=== PATIENT | male | born 1970 | race Caucasian/White ===

== ENCOUNTER 2022-01-29 09:16 | Outpatient (REF) | payer BC, SELFPAY ==
[2022-01-29 12:03] LABS: Alanine Aminotransferase 84 U/L (0-40); Albumin Level 4.8 g/dL (3.5-5.0); Alkaline Phosphatase 66 U/L (39-117); Anion Gap 13 (12-20); Aspartate Amino Transferase 36 U/L (5-37); Bilirubin Total 0.6 mg/dL (0.0-1.0); Blood Urea Nitrogen 20 mg/dL (9-16); Calcium 10.1 mg/dL (8.4-10.2); Carbon Dioxide 26 mmol/L (22-29); Chloride 104 mmol/L (96-108); Cholesterol 208 mg/dL; Estimated Glomerular Filt Rate > 60; Glucose Fasting 138 mg/dL (60-99); HDL Cholesterol 54 mg/dL; LDL Cholesterol Calculated 124 mg/dl; Potassium 4.7 mmol/L (3.3-5.1); Sodium 138 mmol/L (135-145); Total Protein 7.3 g/dL (6.5-8.0); Triglycerides 152 mg/dL
[2022-01-29 12:06] LABS: Prostate Specific Antigen 0.81 ng/mL (<0.05-4.0)
[2022-01-29 12:16] LABS: Estimated Average Glucose 169 mg/dL; Hemoglobin A1c % 7.5 %
== END 2022-01-29 09:17 | disposition home or self-care (01) ==
LOC: HO.MANLDS 09:16
PROVIDERS: PCP Internal Medicine; Visit Provider Internal Medicine
DX: R73.9 Hyperglycemia, unspecified (principal); Z12.5 Encounter for screening for malignant neoplasm of prostate
CPT/HCPCS: 36415; 80053; 80061; 83036; 84153

== ENCOUNTER 2022-04-25 08:13 | Outpatient (REF) | payer BC, SELFPAY ==
[2022-04-25 11:39] LABS: Estimated Average Glucose 137 mg/dL; Hemoglobin A1c % 6.4 %
== END 2022-04-25 08:14 | disposition home or self-care (01) ==
LOC: HO.MANLDS 08:13
PROVIDERS: Visit Provider Internal Medicine
DX: R73.9 Hyperglycemia, unspecified (principal)
CPT/HCPCS: 36415; 83036

== ENCOUNTER 2022-08-03 08:28 | Outpatient (REF) | payer BC, SELFPAY ==
[2022-08-03 11:38] LABS: Estimated Average Glucose 134 mg/dL; Hemoglobin A1c % 6.3 %
== END 2022-08-03 08:29 | disposition home or self-care (01) ==
LOC: HO.MANLDS 08:28
PROVIDERS: Visit Provider Internal Medicine
DX: R73.01 Impaired fasting glucose (principal)
CPT/HCPCS: 36415; 83036

== ENCOUNTER 2022-10-29 10:36 | Outpatient (REF) | payer BC, SELFPAY ==
[2022-10-29 14:10] LABS: Estimated Average Glucose 143 mg/dL; Hemoglobin A1c % 6.6 %
== END 2022-10-29 10:37 | disposition home or self-care (01) ==
LOC: HO.MANLDS 10:36
PROVIDERS: Visit Provider Internal Medicine
DX: R73.9 Hyperglycemia, unspecified (principal)
CPT/HCPCS: 36415; 83036

== ENCOUNTER 2023-01-25 07:46 | Outpatient (REF) | payer BC, SELFPAY ==
[2023-01-25 12:13] LABS: Estimated Average Glucose 143 mg/dL; Hemoglobin A1c % 6.6 %
== END 2023-01-25 07:47 | disposition home or self-care (01) ==
LOC: HO.MANLDS 07:46
PROVIDERS: Visit Provider Internal Medicine
DX: R73.9 Hyperglycemia, unspecified (principal)
CPT/HCPCS: 36415; 83036

== ENCOUNTER 2023-11-07 14:00 | Outpatient (RCR) | payer BC, SELFPAY | END 2023-12-24 13:39 | disposition home or self-care (01) | LOC: HO.PTWFD 14:00 | PROVIDERS: PCP Internal Medicine; Visit Provider Orthopaedic Surgery | DX: Z98.890 Other specified postprocedural states (principal) | CPT/HCPCS: 97014; 97110; 97140; 97150; 97163; 97535 ==

== ENCOUNTER 2024-02-11 07:15 | Outpatient (REF) | payer BC, SELFPAY ==
[2024-02-11 11:53] LABS: Estimated Average Glucose 180 mg/dL; Hemoglobin A1c % 7.9 % (<6.0)
[2024-02-11 12:26] LABS: Creatinine Urine 45.56 mg/dL; Microalbum/Creatinine Ratio Ur 10.9 ug/mg cr (<30)
[2024-02-11 12:31] LABS: Alanine Aminotransferase 92 U/L (0-40); Albumin Level 4.7 g/dL (3.5-5.0); Alkaline Phosphatase 86 U/L (39-117); Anion Gap 14 (12-20); Aspartate Amino Transferase 42 U/L (5-37); Bilirubin Total 0.4 mg/dL (0.0-1.0); Blood Urea Nitrogen 22 mg/dL (9-16); Calcium 9.6 mg/dL (8.4-10.2); Carbon Dioxide 27 mmol/L (22-29); Chloride 104 mmol/L (96-108); Cholesterol 190 mg/dL (<200); Estimated Glomerular Filt Rate > 60; Glucose Random 163 mg/dL (60-115); HDL Cholesterol 45 mg/dL (>40); LDL Cholesterol Calculated 103 mg/dL (<100); Potassium 4.5 mmol/L (3.3-5.1); Sodium 140 mmol/L (135-145); Total Protein 7.7 g/dL (6.5-8.0); Triglycerides 214 mg/dL (<150)
== END 2024-02-11 07:16 | disposition home or self-care (01) ==
LOC: HO.WFDLDS 07:15
PROVIDERS: Visit Provider Internal Medicine
DX: Z13.6 Encounter for screening for cardiovascular disorders (principal); R73.01 Impaired fasting glucose
CPT/HCPCS: 36415; 80053; 80061; 82043; 82570; 83036

== ENCOUNTER 2024-04-27 07:52 | Outpatient (REF) | payer BC, SELFPAY ==
[2024-04-27 11:58] LABS: Estimated Average Glucose 140 mg/dL; Hemoglobin A1c % 6.5 % (<6.0)
[2024-04-27 12:12] LABS: Alanine Aminotransferase 33 U/L (0-40); Albumin Level 4.5 g/dL (3.5-5.0); Alkaline Phosphatase 64 U/L (39-117); Anion Gap 10 (12-20); Aspartate Amino Transferase 26 U/L (5-37); Bilirubin Total 0.3 mg/dL (0.0-1.0); Blood Urea Nitrogen 20 mg/dL (9-16); Calcium 9.5 mg/dL (8.4-10.2); Carbon Dioxide 27 mmol/L (22-29); Chloride 107 mmol/L (96-108); Cholesterol 138 mg/dL (<200); Estimated Glomerular Filt Rate > 60; Glucose Random 123 mg/dL (60-115); HDL Cholesterol 57 mg/dL (>40); LDL Cholesterol Calculated 67 mg/dL (<100); Sodium 140 mmol/L (135-145); Total Protein 6.9 g/dL (6.5-8.0); Triglycerides 70 mg/dL (<150)
== END 2024-04-27 07:53 | disposition home or self-care (01) ==
LOC: HO.WFDLDS 07:52
PROVIDERS: Visit Provider Internal Medicine
DX: E78.2 Mixed hyperlipidemia (principal); R73.01 Impaired fasting glucose
CPT/HCPCS: 36415; 80053; 80061; 83036

== ENCOUNTER 2024-08-04 08:08 | Outpatient (REF) | payer BC, SELFPAY ==
[2024-08-04 11:25] LABS: Estimated Average Glucose 134 mg/dL; Hemoglobin A1c % 6.3 % (<6.0)
[2024-08-04 11:42] LABS: Alanine Aminotransferase 22 U/L (0-40); Albumin Level 4.7 g/dL (3.5-5.0); Alkaline Phosphatase 62 U/L (39-117); Anion Gap 13 (12-20); Aspartate Amino Transferase 19 U/L (5-37); Bilirubin Total 0.4 mg/dL (0.0-1.0); Blood Urea Nitrogen 21 mg/dL (9-16); Calcium 9.4 mg/dL (8.4-10.2); Carbon Dioxide 26 mmol/L (22-29); Chloride 105 mmol/L (96-108); Cholesterol 148 mg/dL (<200); Estimated Glomerular Filt Rate > 60; Glucose Random 124 mg/dL (60-115); HDL Cholesterol 62 mg/dL (>40); LDL Cholesterol Calculated 76 mg/dL (<100); Potassium 3.9 mmol/L (3.3-5.1); Sodium 140 mmol/L (135-145); Total Protein 7.2 g/dL (6.5-8.0); Triglycerides 52 mg/dL (<150)
[2024-08-04 12:25] LABS: Creatinine Urine 24.01 mg/dL; Microalbumin Urine < 5.0 mg/L
== END 2024-08-04 08:09 | disposition home or self-care (01) ==
LOC: HO.WFDLDS 08:08
PROVIDERS: Visit Provider Internal Medicine
DX: R73.01 Impaired fasting glucose (principal)
CPT/HCPCS: 36415; 80053; 80061; 82043; 82570; 83036

== ENCOUNTER 2024-11-12 09:44 | Outpatient (REF) | payer BC, SELFPAY ==
--- OUTSIDE RECORDS SUMMARY | 2024-11-12 09:48 | XMS_ITS ---
Author Name [facility] ([place] Organization [facility] Address [address] [place] [id number] Care Team Providers Care General Passenger Agent Name Role Phone RICK WILKINS Primary Care Provider Unavail able Insurance Providers: All historical and current Section Date Range: From patient's date of to the date document was created. This section includes the names of all active insurance providers for the patient. Insurance Provider Type of Coverage Plan Name Start of Policy Coverage End of Policy Coverage Group Number Member ID Insurance Provider's Telephone Number Policy Mosqueda's Name Patient's Relationship to Policy Mosqueda TRACY [facility] FEDERAL PREFERRED PROVIDER ORGANIZAT ION (PPO) BASIC SELF+ ONE Nov 27, 2020 113 [id number] [phone] Anabell SUERO PATIENT BC[place] F[place] PREFERRED PROVIDER ORGANIZAT ION (PPO) BASIC SELF PLUS ONE Nov 27, 2020 113 [id number] Anabell SUERO R PATIENT [employer] FEPRX PLAN PRESCRIPT ION CAREM ARK FEPRX Nov 27, 2020 [id number] [phone] Anabell SUERO R PATIENT [employer]-F EP BCBS PRESCRIPT ION FEP CAREM ARK Nov 27, 2020 [id number] AUCLAIR,C HRISTOPHE R PATIENT Selected Encounter This section includes the information on record at ME for the Encounter. Date/Time Encounter Type Encounter Description Reason Pro vider Source Jun 19, 2024 02:14 PM Outpatient Encounter TELEPHONE PRIMARY CARE IHE Encounter Template Text not used by ME Plan of Treatment: Future Appointments (+ 6 months) and Future Tests (+/- 45 days) The Plan of Treatment section includes future care activities for the patient from all [facility]. This section includes future appointments and future orders which are active, pending or scheduled. Future Appointments This section includes appointments that were scheduled to occur 6 months from the date of the Encounter, up to a maximum of 20 appointments. The data comes from all ME treatment [facility]. Appointment Date/Time Appointment Type Appointme nt Facility Name Jul 02, 2024 03:00 PM AMBULATORY - MEDICINE [facility] [place] [facility] Jul 02, 2024 03:30 PM AMBULATORY - PSYCHIATRY [facility] [place] [facility] Jul 17, 2024 02:30 PM AMBULATORY - MEDICINE [facility] [place] [facility] Jul 21, 2024 08:00 AM AMBULATORY - PSYCHIATRY [facility] [place] [facility] Aug 11, 2024 03:30 PM AMBULATORY - MEDICINE [facility] [place] [facility] Sep 21, 2024 10:00 AM AMBULATORY - MEDICINE [facility] [place] [facility] Sep 21, 2024 10:01 AM AMBULATORY - MEDICINE [facility] [place] [facility] Sep 22, 2024 11:00 AM AMBULATORY - PSYCHIATRY [facility] [place] [facility] Oct 09, 2024 08:30 AM AMBULATORY - PSYCHIATRY [facility] [place] [facility] Oct 26, 2024 10:00 AM AMBULATORY - NONE [facility] [place] [facility] Nov 11, 2024 09:00 AM AMBULATORY - MEDICINE [facility] [place] [facility] Active, Pending, and Scheduled Orders This section includes a listing of several types of active, pending, and scheduled orders, including clinic medications orders, diagnostic test orders, procedure orders and consult orders; where the start date of the order is 45 days before the date of the Encounter or 45 days after the date of theEncounter. The data comes from all ME treatment [facility]. Test Date/Time Test Type Test Details Facility Name Jul 16, 2024 10:57 AM Consult Order COMMUNITY CARE-COLONOSCOPY DIAGNOSTIC Cons Plant Production Worker's Choice [facility] [employer] [facility] Lab Results: +/- 30 days of the encounter This section includes the Chemistry and Hematology Lab Results on record with ME for the patient. Radiology Reports and Pathology Reports are provided separately, in subsequent sections. Lab Results This section contains the Chemistry/Hematology Results that were resulted 30 days before or 30 daysafter the date of the Encounter. Date/Time Source Result Type Result - Unit Interpretation Reference Range Comment Jul 11, 2024 05:30 AM [facility] [employer] [facility] OCCULT BLOOD FIT X1 SCREEN(IN-HOUSE) Specimen Type: FECES No comment entered. Ordering Provider: OCTAVIANO WILKINS Report Released Date/Time: Jul 02, 2024 03:02 PM Reporting Lab: [facility] [address] [facility] [address] Performing Lab: [address] [address] OCCULT BLOOD (FIT)#1 OF 1 POSITIVE HH NEG Social History: Smoking Status (Most current) and Tobacco Use (All prior to encounter date) This section includes the most current, and the historical, smoking and tobacco- related health factors from the ME facility where the Encounter took place. Current Smoking Status This section includes the most current smoking, or tobacco-related health factor, from the ME facility where the Encounter took place. Date/Time Current Smoking Status Comment Ava conde Jun 19, 2024 02:14 PM [facility]CO [facility] Encounter Notes: All associated encounter notes This section contains the clinical notes associated to the Encounter. Date/Time Encounter Note(s) Provider Source Jun 19, 2024 02:42 PM LETTERS: LOCAL TITLE: PATIENT LETTER (B) STANDARD TITLE: LETTERS DATE OF NOTE: JUN 19, 2024@14:42 ENTRY DATE: JUN 19, 2024@14:42:31 AUTHOR: JONATHAN MADDOX COSIGNER: URGENCY: STATUS: COMPLETED [facility] [address] [facility] [address] * [phone] * Date: 06/19/24 Dear [place]: George Thank you for choosing the [facility] (ME) [facility]. The Whole Health Program aims to support you in pursuing what matters most to you, and includes services that support your values and overall wellness. This includes the following offerings: * Yoga * Acupuncture * [place] [facility] for Acute Pain (offered weekly; drop-in or scheduled) * Individual health coaching * Gasoline Attendant * Biofeedback for Hypertension and Anxiety * Guided Imagery Group * Meditation Group * Cancer Support Group * Stress Management Group ( Stress Less ) The following require no referral from a provider, and can be initiated by you at any time: * Yoga * Meditation * [place] [facility] * Cancer Support Group * Individual Health Coaching * Stress Management Group ( Stress Less ) If interested in any of the above offerings, please reach out to the Whole Health Team at ext. [phone]. To schedule consult-required services, or if you would like more information regarding [place] health care benefits, please call toll free at [phone]), visit the [place] website at [email or web address], or contact your local [place] Medical Center. If you have any questions, please do not hesitate to contact the Department of [place]'s Affairs call center. Sincerely. Dr. Aminata Hurley Whole Health and Integrated Orchestrator [facility] Direct JONATHAN MADDOX [facility] [place] [facility] Jun 19, 2024 02:26 PM MEDICATION MGT NOTE: LOCAL TITLE: MEDICATION RECONCILIATION STANDARD TITLE: MEDICATION MGT NOTE DATE OF NOTE: JUN 19, 2024@14:26 ENTRY DATE: JUN 19, 2024@14:27:15 AUTHOR: JONATHAN MADDOX COSIGNER: URGENCY: STATUS: COMPLETED [place]ane was given an appt with: Carrington Wilkins PA-C on 07/02/24@1500 F: Medication reconciliation D: Duane says that he is on the following Medications: 1. Betamethasone dipropionate 0.05 % topical cream APPLY TO AFFECTED AREA TWICE A DAY as needed 2. Naproxen 200mg by mouth as needed- OTC 3. Ibuprofen 200mg by mouth Take 400mg by mouth as needed- OTC Duane says that he has the following Medical Hx: 1. Labrum right shoulder- Pain of right shoulder joint- Injury of tendon of the rotator cuff of shoulder- surgery 2022 2. Kidney stone 3. Mass of lower limb-Rt hip 4. Impaired fasting glycemia 5. Neck pain 6. Hypertriglyceridemia 7. Eczema- elbows, back of hands 8. Obesity 9. Pain of right knee joint 10. Glenoid labrum tear 11. Sleep apnea 12. Hearing Loss Duane says that he has the following community Providers: 1. [facility] [address] [facility] [place], [address], 2. Darrell Roy DO [address] [place] [address], [id number], [place] 3. [place] Date(s): 05/15/24 - 06/14/[address] [id number] Duane says that he has allergies or adverse effects to the following Medications: 1. Duane has No Known Drug allergies /es/ JONATHAN MADDOX MSN Ed., BSN ALTERATION INSPECTOR NURSE Signed: 06/22/2024 09:08 Receipt Acknowledged By: 06/22/2024 09:17 /es/ CESAR LOPEZ, RN REGISTERED NURSE 06/22/2024 10:03 /es/ GEORGE MOSELEY LPN 06/22/2024 09:41 /es/ Rick Wilkins PA-C STAFF PHYSICIAN ATTIC FANS MECHANIC JONATHAN MADDOX [facility] [place] [facility] Jun 19, 2024 02:21 PM LETTERS: LOCAL TITLE: PATIENT LETTER (B) STANDARD TITLE: LETTERS DATE OF NOTE: JUN 19, 2024@14:21 ENTRY DATE: JUN 19, 2024@14:21:39 AUTHOR: JONATHAN MADDOX EXP COSIGNER: URGENCY: STATUS: [place] [address] [phone] * [phone] * Date: 06/22/24 Dear : George Thank you for choosing the [facility] ([place]) [facility] [place]. Please be a few minutes early to this appt- about 15 mins. We would like to update your demographic information. To schedule or if you would like more information regarding [place] health care benefits, please call toll free at [phone]), visit the [place] website at [email or web address], or contact your local [place] Medical Center. Welcome to patient aligned care team (Pact Team 3) with (Carrington Wilkins PA-C). Prior to meeting you at your new patient appointment we are requesting some of your past medical history so that we may provide you with the exceptional care you deserve. Please note that it is very helpful to have these documents prior to your appointment date as the more information we have the better we will be able to meet your needs: * Last History & Physical * Immunization records * Medication list * Diagnosis list * Most recent labs * Diagnostic screens (Colonoscopy, Abdominal Aortic Aneurysm screen, Mammograms, PAPS, etc.) We have scheduled the following appt with you to see your new PCP: Your appt is scheduled for (07/02/24@1500)- This appt will be about an hour long appt which will give you and your Provider a chance to get to know each other. We have noticed that you are due to receive the following Immunizations: 1. Zoster vaccine- 2 shot series 2. Covid 19 vaccine 3. Influenza Vaccine after 08/09 You may either bring your records with you to your scheduled appointment, or drop them off ahead of your appointment or you may have them faxed to [phone] ATTN: [id number] If you have any questions, please do not hesitate to contact the Department of 's Affairs call center at Ext [phone]. Just so that you know if you're feeling sick we have sick call hours at the [facility], and the [facility]- Sat thru Saturday 08-1530- first come first serve- walk-in basis. [facility] also has sick call hours Sat- Sat- 1100-12N, and 3P-4P- first come first serve basis- no appt needed. You can utilize our sick call system once you have seen the PCP for the first appt. Audiology Phone number- [phone] Ext [phone] Optometry Phone Number- [phone] Ext [phone] Mental Health Clinic- [phone] Ext- [phone] Eligibility/Enrollment- [phone] [phone] Veterans Rep [phone] Ext [phone] JAMES Camacho [phone] [facility] Transportation [phone] Ext [phone], or,[phone] [place] Act [phone] ( Call within 72hrs of being seen in an acute care setting Sincerely. [facility] [address] [place] [address] Phone: Ext [phone] Upcoming Appointments: 07/02/24@1500- CWM/NO/PACT-3- Dougwaleyda Maddox MSN Ed., BSN, RN [facility] [address] [facility] [address] [place] [address] [place] [address] - Ext [phone] [facility] [address] [place] [address] # [phone] [place] [address] JONATHAN MADDOX [facility] [place] [facility] Jun 19, 2024 02:14 PM PREVENTIVE MEDICINE NURSING NOTE: LOCAL TITLE: CLINICAL REMINDERS/NURSING STANDARD TITLE: PREVENTIVE MEDICINE NURSING NOTE DATE OF NOTE: JUN 19, 2024@14:14 ENTRY DATE: JUN 19, 2024@14:14:59 AUTHOR: JONATHAN MADDOX EXP COSIGNER: URGENCY: STATUS: COMPLETED Advance Directive Screen AD: Patient does not have an Advance Directive completed and is requesting more information. The patient received education about Advance Directives and written notification of his/her rights. Vet was sent an advanced directive and was asked to fill out and bring in for PCP appt Tdap Immunization: Td/Tdap given previously - written records available The patient has previously received the Tetanus, Diphtheria, Pertussis vaccine (Tdap). Documented: TDAP Historical Date Administered: Sep 29, 2021 Series: (None selected) Representative Government Relations: [employer] Lot: [id number] Exp Date: Unknown Outside Location: Outside Healthcare Provider Information Source: FROM OTHER REGISTRY Comment: tetanus, diphtheria, acellular pertussis Documented: YELLOW FEVER LIVE Historical Date Administered: Jul 26, 1990 Outside Location: Outside Healthcare Provider Information Source: FROM OTHER REGISTRY Comment: yellow fever vaccine Documented: YELLOW FEVER LIVE Historical Date Administered: Aug 03, 2000 Outside Location: Outside Healthcare Provider Information Source: FROM OTHER REGISTRY Comment: yellow fever vaccine Documented: TYPHOID, PARENTERAL, AKD ([place] ) Historical Date Administered: Jun 25, 1996 Outside Location: Outside Healthcare Provider Information Source: FROM OTHER REGISTRY Comment: typhoid, parenteral, AKD Documented: TYPHOID, VICPS Historical Date Administered: March 29, 2018 Representative Government Relations: [employer] PA[employer] Lot: [id number] Exp Date: Unknown Outside Location: Outside Healthcare Provider Information Source: FROM OTHER REGISTRY Comment: typhoid Vi capsular polysaccharide vaccine Documented: COVID-19 ([facility]), MRNA, LNP-S, PF, 30 MCG/0.3 ML DOSE Historical Date Administered: Nov 23, 2020 Series: Series 1 Representative Government Relations: [facility] Lot: [id number] Exp Date: Unknown Outside Location: Outside Healthcare Provider Information Source: FROM OTHER REGISTRY Comment: SARS-COV-2 (COVID-19) vaccine, mRNA, spike protein, LNP, preservative free, 30 mcg/0.3mL dose Documented: COVID-19 ([employer]), MRNA, LNP-S, PF, 30 MCG/0.3 ML DOSE Historical Date Administered: Dec 14, 2020 Series: Series 2 Representative Government Relations: [facility] Lot: [id number] Exp Date: Unknown Outside Location: Outside Healthcare Provider Information Source: FROM OTHER REGISTRY Comment: SARS-COV-2 (COVID-19) vaccine, mRNA, spike protein, LNP, preservative free, 30 mcg/0.3mL dose Documented: COVID-19 ([employer]), MRNA, LNP-S, PF, 100 MCG/0.5ML DOSE OR 50 MCG/0.25ML DOSE Historical Date Administered: Feb 24, 2021 Representative Government Relations: [employer] Lot: [id number] Exp Date: Unknown Outside Location: Outside Healthcare Provider Information Source: FROM OTHER REGISTRY Comment: SARS-COV-2 (COVID-19) vaccine, mRNA, spike protein, LNP, preservative free, 100 mcg or 50 mcg dose Documented: POLIO, UNSPECIFIED FORMULATION Historical Date Administered: Jan 23, 1991 Outside Location: Outside Healthcare Provider Information Source: FROM OTHER REGISTRY Comment: poliovirus vaccine, live, oral Documented: MENINGOCOCCAL MPSV4 Historical Date Administered: Jan 22, 1990 Outside Location: Outside Healthcare Provider Information Source: FROM OTHER REGISTRY Comment: meningococcal polysaccharide vaccine (MPSV4) Documented: MENINGOCOCCAL MPSV4 Historical Date Administered: April 05, 1999 Representative Government Relations: SANOFI PASTEUR Lot: [id number] Exp Date: Unknown Outside Location: Outside Healthcare Provider Information Source: FROM OTHER REGISTRY Comment: meningococcal polysaccharide vaccine (MPSV4) Documented: MMR Historical Date Administered: April 04, 1999 Lot: [id number] Exp Date: Unknown Outside Location: Outside Healthcare Provider Information Source: FROM OTHER REGISTRY Comment: measles/mumps/rubella virus vaccine Documented: MMR Historical Date Administered: Dec 03, 2015 Lot: [id number] Exp Date: Unknown Outside Location: Outside Healthcare Provider Information Source: FROM OTHER REGISTRY Comment: measles/mumps/rubella virus vaccine Documented: HEP B, ADULT Historical Date Administered: Nov 05, 2011 Series: Series 1 Lot: [id number] Exp Date: Unknown Outside Location: Outside Healthcare Provider Information Source: FROM OTHER REGISTRY Comment: hepatitis B vaccine, adult dosage Documented: HEP B, ADULT Historical Date Administered: Jan 09, 2012 Series: Series 2 Lot: [id number] Exp Date: Unknown Outside Location: Outside Healthcare Provider Information Source: FROM OTHER REGISTRY Comment: hepatitis B vaccine, adult dosage Documented: HEP B, ADULT Historical Date Administered: Jan 24, 2013 Series: Series 3 Lot: [id number] Exp Date: Unknown Outside Location: Outside Healthcare Provider Information Source: FROM OTHER REGISTRY Comment: hepatitis B vaccine, adult dosage Documented: HEP A, ADULT Historical Date Administered: Feb 02, 1999 Series: Series 1 Representative Government Relations: [employer] Lot: [id number] Exp Date: Unknown Outside Location: Outside Healthcare Provider Information Source: FROM OTHER REGISTRY Comment: hepatitis A vaccine, adult dosage Documented: HEP A, ADULT Historical Date Administered: Jan 20, 2000 Series: Series 2 Representative Government Relations: [employer] Lot: [id number] Exp Date: Unknown Outside Location: Outside Healthcare Provider Information Source: FROM OTHER REGISTRY Comment: hepatitis A vaccine, adult dosage Documented: ANTHRAX VACCINE, UNSPECIFIED Historical Date Administered: March 30, 2000 Representative Government Relations: [employer] Lot: [id number] Exp Date: Unknown Outside Location: Outside Healthcare Provider Information Source: FROM OTHER REGISTRY Documented: ANTHRAX VACCINE, UNSPECIFIED Historical Date Administered: April 13, 2000 Representative Government Relations: [employer] Lot: [id number] Exp Date: Unknown Outside Location: Outside Healthcare Provider Information Source: FROM OTHER REGISTRY Documented: ANTHRAX VACCINE, UNSPECIFIED Historical Date Administered: May 31, 2000 Representative Government Relations: [employer] Lot: [id number] Exp Date: Unknown Outside Location: Outside Healthcare Provider Information Source: FROM OTHER REGISTRY Documented: ANTHRAX VACCINE, UNSPECIFIED Historical Date Administered: Oct 31, 2002 Representative Government Relations: [employer] Lot: [id number] Exp Date: Unknown Outside Location: Outside Healthcare Provider Information Source: FROM OTHER REGISTRY Documented: ADENOVIRUS, UNSPECIFIED FORMULATION Historical Date Administered: May 01, 2003 Representative Government Relations: [employer] Lot: [id number] Exp Date: Unknown Outside Location: Outside Healthcare Provider Information Source: FROM OTHER REGISTRY Documented: ANTHRAX VACCINE, UNSPECIFIED Historical Date Administered: Jan 01, 2004 Representative Government Relations: [employer] Lot: [id number] Exp Date: Unknown Outside Location: Outside Healthcare Provider Information Source: FROM OTHER REGISTRY Documented: ANTHRAX VACCINE, UNSPECIFIED Historical Date Administered: Nov 05, 2011 Representative Government Relations: [employer] Lot: [id number] Exp Date: Unknown Outside Location: Outside Healthcare Provider Information Source: FROM OTHER REGISTRY Depression Screening: Perform PHQ-2 A PHQ-2 screen was performed. The score was 0 which is a negative screen for depression. Over the past two weeks, how often have you been bothered by the following problems? 1. Little interest or pleasure in doing things Not at all 2. Feeling down, depressed, or hopeless Not at all Suicide Screen: C-SSRS Screening [place] Suicide Severity Rating Scale (C-SSRS) screener 1. Over the past month, have you wished you were or wished you could go to sleep and not wake up? No 2. Over the past month, have you had any actual thoughts of killing yourself? No 3. Over the past month, have you been thinking about how you might do this? Response not required due to responses to other questions. 4. Over the past month, have you had these thoughts and had some intention of acting on them? Response not required due to responses to other questions. 5. Over the past month, have you started to work out or worked out the details of how to kill yourself? Response not required due to responses to other questions. 6. If yes, at any time in the past month did you intend to carry out this plan? Response not required due to responses to other questions. 7. In your lifetime, have you ever done anything, started to do anything, or prepared to do anything to end your life (for example, collected pills, obtained a gun, gave away valuables, went to the roof but didn't jump)? No 8. If YES, was this within the past 3 months? Response not required due to responses to other questions. Homelessness/Food Insecurity Screen: In the past 2 months, have you been living in stable housing that you own, rent, or stay in as part of a household? Yes - Living in stable housing. Are you worried or concerned that in the next 2 months you may NOT have stable housing that you own, rent, or stay in as part of a household? No - Not worried about housing near future The [place] reports the following: Within the past 12 months, you worried whether your food would run out before you got money to buy more. Never true Within the past 12 months, the food you bought just didn't last and you didn't have money to get more. Never true Preferred Language: What is your, or your caregiver's preferred language for healthcare? Preferred Language: Bahraini Tobacco Use Screening: The patient has never used tobacco. Tobacco Pack Year History: Patient never smoked cigarettes or smoked FEWER THAN 100 cigarettes/lifetime Alcohol Use Screen (AUDIT-C): Alcohol Screen: SCREEN FOR ALCOHOL (AUDIT-C) An alcohol screening test (AUDIT-C) was negative (score=1). 1. How often did you have a drink containing alcohol in the past year? Consider a drink to be a 12 ounce can or bottle of regular beer, 8 ounces of malt liquor, a 5 ounce glass of table wine, or a 1.5 ounce shot of liquor (like scotch, gin, or vodka). Monthly or less 2. How many drinks containing alcohol did you have on a typical day when you were drinking in the past year? One or two drinks 3. How often did you have six or more drinks on one occasion in the past year? Never Influenza Immunization: The patient has received the seasonal influenza vaccine for the current season at another location. Documented: INFLUENZA, UNSPECIFIED FORMULATION Historical Date Administered: Oct 29, 2023 Outside Location: Outside Healthcare Provider Information Source: FROM PATIENT'S RECALL Comment: Daniel del angel/ JONATHAN MADDOX MSN Ed., BSN ALTERATION INSPECTOR NURSE Signed: 06/22/2024 08:43 JONATHAN MADDOX [facility]
--- OUTSIDE RECORDS SUMMARY | 2024-11-12 09:48 | XMS_ITS | Continuity of Care Document ---
Author Name DOD-IN Organization DOD-IN Care Team Providers Care Audiologist Name Role Phone DOD-IN Unavailable Unavailable Problems Combined list of problems from Department of Defense and Veterans Affairs facilities. It does not include entries that were removed or entered in error. Problem Status Onset Date Problem Type Date of Resolution Comments Source Chronic neck pain Active Condition [facility] Eczema Active Condition Jun 22 24 Entered By: REGGIE GERMAIN Comment: Eczema- elbows, back of hands [facility] Exposure to potentially hazardous substance (SCT [id number]) Active Condition Aug 12 Entered By: FUENTES LEW Comment: Entered automatically through TANIA Problem List documentation program [facility] Glenoid labrum tear Active Condition [facility] Hearing loss Active Condition Jun 22, 2024 Entered By: REGGIE GERMAIN Comment: Bilateral [facility] Hematochezia (SCT [id number]) Active Condition [facility] Hypertriglyceridemia Active Condition [facility] Impaired fasting glycemia Active Condition [facility] Joint pain Active Condition Jun 22 024 Entered By: REGGIE GERMAIN Comment: Pain of right knee joint [facility] Kidney stone Active Condition [facility] Obesity Active Condition [facility] Sleep apnea Active Condition [facility] visit for: services physical Inactive Condition DoD pain during urination (dysuria) Inactive Condition DoD urethritis Inactive Condition DoD Diagnosis: ICD-10-CM K92.1 Melena Active Diagnosis [facility] Diagnosis: ICD-10-CM G47.33 Obstructive sleep apnea (adult) (pediatric) [facility] [place] [facility] Diagnosis: ICD-10-CM R06.83 Snoring Active Diagnosis [facility] ([id number]) Diagnosis: ICD-10-CM F32.A Depression, unspecified Active [facility] [place] [facility] Diagnosis: ICD-10-CM G47.30 Sleep apnea, unspecified Active Diagnosis [facility] ([id number]) Diagnosis: ICD-10-CM M54.2 Cervicalgia [facility] [place] [facility] Diagnosis: ICD-10-CM Z02.89 Encounter for other administrative examinations Active Diagnosis [facility] [place] [facility] Diagnosis: ICD-10-CM Z71.89 Other specified counseling Active Diagnosis [facility] [place] [facility] Diagnosis: ICD-10-CM F43.9 Reaction to severe stress, unspecified [facility] [place] [facility] Diagnosis: ICD-10-CM F43.10 Post-traumatic stress disorder, unspecified [facility] [place] [facility] Diagnosis: ICD-10-CM L30.9 Dermatitis, unspecified [facility] [place] [facility] Allergies, Adverse Reactions, Alerts Combined list of allergies from Department of Defense and Veterans Affairs facilities. It does not include entries that were removed or entered in error. Substance Category Reaction Severity Reaction type Status Date Reported Comments Source Unable to obtain Allergy to substance Unknown Unknown Active 8203R-10 4 MDG Immunizations Combined list of available immunizations from the Department of Defense and Veterans Affairs facilities. Immunization Series Date Given Administered By Site Reaction Lot Number CVX Code Drug Director Clinical Operations Status Comments Source influenza virus vaccine, inactivated 2023 SIDRA Castano gilmar, left (delt oid) [id number] [employer] complet ed influenza virus vaccine, inactivat ed 09/27/24 Given 8203R-1 04 MDG INFLUENZA, UNSPECIFIED FORMULATION [address] [facility] [place] [facility] Influenza, injectable, quadrivalent, preservative free 0 2021 XS3 [employer] SmithKline (SKB) complet ed Influenza , injectabl e, quadrival ent, preservat kenneth free DoD tetanus, diphtheria, acellular pertu is 2020 [id number] sanofi pasteur complet ed tetanus, diphtheri a, acellular pertussis 09/29/21 Given Ambulat ory Pharmac y TDAP 2020 115 complet ed tetanus, diphtheri a, acellular pertussis Lot#: [id number] Mfr: [facility] tetanus toxoid, reduced diphtheria toxoid, and acellular pertu is vaccine, adsorbed 1 2020 [id number] 115 Sanofi Pasteur ([facility]) complet ed tetanus toxoid, reduced diphtheri a toxoid, and acellular pertussis vaccine, adsorbed DoD influenza, injectable, quadrivalent 2020 [id number] 158 5173.comReading [facility] complet ed influenza , injectabl e, quadrival ent 09/10/21 Given Ambulat ory Pharmac y influenza, injectable, quadrivalent, contains preservative 10 2020 [id number] 158 Cenoplex (SKB) complet ed influenza , injectabl e, quadrival ent, contains preservat kenneth DoD COVID Vaccine Moderna 2020 [id number] complet ed COVID Vaccine Moderna 03/22/21 Given Ambulat ory Pharmac y SARS-COV-2 (COVID-19) vaccine, mRNA, spike protein, LNP, preservative free, 100 mcg or 50 mcg dose 2 2020 [id number] 207 Moderna [employer] (MOD) complet ed SARS-COV- 2 (COVID-19 ) vaccine, mRNA, spike protein, LNP, preservat kenneth free, 100 mcg or 50 mcg dose DoD COVID Vaccine Moderna 2020 [id number] 207 complet ed COVID Vaccine Moderna 02/24/21 Given Ambulat ory Pharmac y COVID-19 (MODERNA), MRNA, LNP-S, PF, 100 MCG/0.5ML DOSE OR 50 MCG/0.25ML DOSE 2020 207 complet ed SARS-COV- 2 (COVID-19 ) vaccine, mRNA, spike protein, LNP, preservat kenneth free, 100 mcg or 50 mcg dose Lot#: [id number] [facility] SARS-COV-2 (COVID-19) vaccine, mRNA, spike protein, LNP, preservative free, 100 mcg or 50 mcg dose 1 2020 [id number] 207 Poshmark. (MOD) complet ed SARS-COV- 2 (COVID-19 ) vaccine, mRNA, spike protein, LNP, preservat kenneth free, 100 mcg or 50 mcg dose DoD COVID Vaccine Pfizer 2020 [id number] 208 PFIZER complet ed COVID Vaccine [facility] 12/14/20 Given Ambulat ory Pharmac y COVID-19 (PFIZER), MRNA, LNP-S, PF, 30 MCG/0.3 ML DOSE 2 2020 208 complet ed SARS-COV- 2 (COVID-19 ) vaccine, mRNA, spike protein, LNP, preservat kenneth free, 30 mcg/0.3mL dose Lot#: [id number] Mfr: [employer], Ium [facility] SARS-COV-2 (COVID-19) vaccine, mRNA, spike protein, LNP, preservative free, 30 mcg/0.3mL dose 2 2020 [id number] 208 Enjoi, Inc (PFR) complet ed SARS-COV- 2 (COVID-19 ) vaccine, mRNA, spike protein, LNP, preservat kenneth free, 30 mcg/0.3mL dose DoD COVID Vaccine Pfizer 2019 [id number] 208 PFIZER complet ed COVID Vaccine [facility] 11/23/20 Given Ambulat ory Pharmac y COVID-19 (PFIZER), MRNA, LNP-S, PF, 30 MCG/0.3 ML DOSE 1 2019 208 complet ed SARS-COV- 2 (COVID-19 ) vaccine, mRNA, spike protein, LNP, preservat kenneth free, 30 mcg/0.3mL dose Lot#: [id number] Mfr: [employer], [facility] SARS-COV-2 (COVID-19) vaccine, mRNA, spike protein, LNP, preservative free, 30 mcg/0.3mL dose 1 2019 [id number] 208 Enjoi, Inc (PFR) complet ed SARS-COV- 2 (COVID-19 ) vaccine, mRNA, spike protein, LNP, preservat kenneth free, 30 mcg/0.3mL dose DoD influenza, injectable, quadrivalent- pf 2019 [id number] 150 [employer] complet ed influenza , injectabl e, quadrival ent-pf 10/18/20 Given Ambulat ory Pharmac y Influenza, injectable, quadrivalent, preservative free 1 2019 [id number] 077 150 [employer] (SEQ) complet ed Influenza , injectabl e, quadrival ent, preservat kenneth free DoD influenza, injectable, quadrivalent- pf 2018 [id number] 150 [employer] complet ed influenza , injectabl e, quadrival ent-pf 08/28/19 Given Ambulat ory Pharmac y Influenza, injectable, quadrivalent, preservative free 22 2018 [id number] 520 150 [employer] (SEQ) complet ed Influenza , injectabl e, quadrival ent, preservat kenneth free DoD influenza, injectable, quadrivalent 2017 [id number] 158 [employer] complet ed influenza , injectabl e, quadrival ent 10/25/18 Given Ambulat ory Pharmac y influenza, injectable, quadrivalent, contains preservative 21 2017 [id number] 158 [employer] (SEQ) comple t ed influenza , injectabl e, quadrival ent, contains preservat kenneth DoD typhoid Vi capsular polysaccharid e vac 2017 [id number] 101 sanofi pasteur complet ed typhoid Vi capsular polysacch aride vac 03/29/18 Given Ambulat ory Pharmac y TYPHOID, VICPS 2017 101 complet ed typhoid Vi capsular polysacch aride vaccine Lot#: [id number] Mfr: SANOFI PASTEUR [facility] typhoid Vi capsular polysaccharid e vaccine 6 2017 [id number] 101 Sanofi Pasteur ([facility]) complet ed typhoid Vi capsular polysacch aride vaccine DoD Influenza, inj, MDCK, quadrivalent- pf 2016 [id number] 171 [employer] complet ed Influenza , inj, MDCK, quadrival ent-pf 09/08/17 Given Ambulat ory Pharmac y Influenza, injectable, [employer]in [place] Canine Kidney, preservative free, quadrivalent 1 2016 [id number] 171 Se[employer] (SEQ) comple t ed Influenza , injectabl e, Madin [place] Canine Kidney, preservat kenneth free, quadrival ent DoD influenza, seasonal, injectable-pf 2015 [id number] 140 Se[employer] complet ed influenza , seasonal, injectabl e-pf 09/30/16 Given Ambulat ory Pharmac y Influenza, seasonal, injectable, preservative free 1 2015 [id number] 140 Se[employer] (SEQ) comple t ed Influenza , seasonal, injectabl e, preservat kenneth free DoD typhoid Vi capsular polysaccharid e vac 2015 [id number] 101 sanofi pasteur complet ed typhoid Vi capsular polysacch aride vac 02/20/16 Given Ambulat ory Pharmac y typhoid Vi capsular polysaccharid e vaccine 1 2015 [id number] 101 Sanofi Pasteur ([facility]) complet ed typhoid Vi capsular polysacch aride vaccine DoD influenza, live, intranasal,qu adrivalent 2015 [id number] 149 Keep Me Certifiedune Inc comple t ed influenza , live, intranasa l,quadriv alent 12/03/15 Given Ambulat ory Pharmac y measles/mumps /rubella virus vaccine 2015 [id number] 03 Merck & Company Inc complet ed measles/m umps/rube lla virus vaccine 12/03/15 Given Ambulat ory Pharmac y MMR 2015 03 complet ed measles/m umps/rube lla virus vaccine Lot#: [id number] [facility] measles, mumps and rubella virus vaccine 2 2015 [id number] 03 Merck (MSD) complet ed measles, mumps and rubella virus vaccine DoD influenza, live, intranasal, quadrivalent 18 2015 [id number] 149 PeepsOut Inc., Inc. (MED) complet ed influenza , live, intranasa l, quadrival ent DoD Influenza, injectable, MDCK-pf 2013 [id number] 153 Novartis Pharmaceutica complet ed Influenza , injectabl e, MDCK-pf 08/28/14 Given Ambulat ory Pharmac y Influenza, injectable, [employer] [place] Canine Kidney, preservative free 17 10/04/ 2014 [id number] 153 Novartis Pharmaceutica Kuznech Shai. (NOV) complet ed Influenza , injectabl e, Madin [place] Canine Kidney, preservat kenneth free DoD influenza, seasonal, injectable 2012 [id number] 141 CSL Behring complet ed influenza , seasonal, injectabl e 09/27/13 Given Ambulat ory Pharmac y Influenza, seasonal, injectable 0 2012 [id number] 141 [facility] [employer] Inc. (CS) complet ed Influenza , seasonal, injectabl e DoD tuberculin purified protein derivative 2012 [id number] 96 sanofi pasteur complet ed tuberculi n purified protein derivativ e 01/24/13 Given Ambulat ory Pharmac y hepatitis B adult vaccine 2012 [id number] 43 GlaxoSmithKli ne complet ed hepatitis B adult vaccine 01/24/13 Given Ambulat ory Pharmac y HEP B, ADULT 3 2012 43 complet ed hepatitis B vaccine, adult dosage Lot#: [id number] [facility] [address] [facility] hepatitis B vaccine, adult dosage 3 2012 [id number] 43 SmithKline (SKB) complet ed hepatitis B vaccine, adult dosage DoD influenza, seasonal, injectable 2012 [id number] 141 sanofi pasteur complet ed influenza , seasonal, injectabl e 12/09/12 Given Ambulat ory Pharmac y Influenza, seasonal, injectable 1 2012 [id number] 141 Sanofi Pasteur ([facility]) complet ed Influenza , seasonal, injectabl e DoD hepatitis B adult vaccine 2011 [id number] 43 GlaxoSmithKli ne complet ed hepatitis B adult vaccine 01/09/12 Given Ambulat ory Pharmac y HEP B, ADULT 2 2011 43 complet ed hepatitis B vaccine, adult dosage Lot#: [id number] B [facility] [employer] [facility] hepatitis B vaccine, adult dosage 2 2011 [id number] 0AB 43 SmithKline (SKB) complet ed hepatitis B vaccine, adult dosage DoD typhoid Vi capsular polysaccharid e vac 2010 [id number] 101 sanofi pasteur complet ed typhoid Vi capsular polysacch aride vac 11/05/11 Given Ambulat ory Pharmac y hepatitis B adult vaccine 2010 [id number] [id number] 43 GlaxoSmithKli ne complet ed hepatitis B adult vaccine 11/05/11 Given Ambulat ory Pharmac y anthrax vaccine 2010 [id number] 24 Emergent [employer] complet ed anthrax vaccine 11/05/11 Given Ambulat ory Pharmac y ANTHRAX VACCINE, UNSPECIFIED 2010 319 complet ed Lot#: [id number] Mfr: EMERGENT BIOSOLUTI ONS [facility] HEP B, ADULT 1 2010 43 complet ed hepatitis B vaccine, adult dosage Lot#: [id number] B [facility] anthrax vaccine 6 2010 [id number] [employer] [place] (MIP) complet ed anthrax vaccine DoD hepatitis B vaccine, adult dosage 1 2010 [id number] [id number] 43 Cenoplex (SKB) complet ed hepatitis B vaccine, adult dosage DoD typhoid Vi capsular polysaccharid e vaccine 1 2010 [id number] 101 Sanofi Pasteur ([facility]) complet ed typhoid Vi capsular polysacch aride vaccine DoD influenza, seasonal, injectable 2010 [id number] 141 sanofi pasteur complet ed influenza , seasonal, injectabl e 10/28/11 Given Ambulat ory Pharmac y Influenza, seasonal, injectable 14 2010 [id number] 141 Sanofi Pasteur ([facility]) complet ed Influenza , seasonal, injectabl e DoD tetanus, diphtheria, acellular pertu is 2010 [id number] 115 sanofi pasteur complet ed tetanus, diphtheri a, acellular pertussis 04/07/11 Given Ambulat ory Pharmac y tetanus toxoid, reduced diphtheria toxoid, and acellular pertu is vaccine, adsorbed 1 2010 [id number] 115 Sanofi Pasteur ([facility]) complet ed tetanus toxoid, reduced diphtheri a toxoid, and acellular pertussis vaccine, adsorbed DoD influenza virus vaccine,split 2009 [id number] 15 sanofi pasteur complet ed influenza virus vaccine,s plit 10/28/10 Given Ambulat ory Pharmac y influenza virus vaccine, split virus (incl. purified surface antigen)-reti red CODE 1 2009 [id number] 15 Sanofi Pasteur ([facility]) complet ed influenza virus vaccine, split virus (incl. purified surface antigen)- retired CODE DoD Novel influenza-H1N 1-09, injectable 2009 [id number] 1 127 Novartis Pharmaceutica ls complet ed Novel influenza -M0N7-61, injectabl e 03/25/10 Given Ambulat ory Pharmac y Novel influenza-H1N 1-09, injectable 1 2009 [id number] 1 127 Novartis Pharmaceutica l Shai. (NOV) complet ed Novel influenza -M1H2-17, injectabl e DoD influenza virus vaccine, live 2008 [id number] 111 Keep Me Certifiedune Inc comple t ed influenza virus vaccine, live 10/29/09 Given Ambulat ory Pharmac y influenza virus vaccine, live, attenuated, for intranasal use 1 2008 [id number] 111 PeepsOut Inc., Inc. (MED) complet ed influenza virus vaccine, live, attenuate d, for intranasa l use DoD influenza virus vaccine,split 2008 [id number] 15 sanofi pasteur complet ed influenza virus vaccine,s plit 12/04/08 Given Ambulat ory Pharmac y influenza virus vaccine, split virus (incl. purified surface antigen)-reti red CODE 1 2008 [id number] 15 Sanofi Pasteur ([facility]) complet ed influenza virus vaccine, split virus (incl. purified surface antigen)- retired CODE DoD influenza virus vaccine, live 2007 [id number] 111 Keep Me Certified[employer] Inc comple t ed influenza virus vaccine, live 11/29/07 Given Ambulat ory Pharmac y influenza virus vaccine, live, attenuated, for intranasal use 1 2007 [id number] 111 MedImmune, Inc. (MED) complet ed influenza virus vaccine, live, attenuate d, for intranasa l use DoD influenza virus vaccine,split 2005 [id number] 15 sanofi pasteur complet ed influenza virus vaccine,s plit 10/13/06 Given Ambulat ory Pharmac y influenza virus vaccine, split virus (incl. purified surface antigen)-reti red CODE 1 2005 [id number] 15 Sanofi Pasteur ([facility]) complet ed influenza virus vaccine, split virus (incl. purified surface antigen)- retired CODE DoD varicella virus vaccine 0 2005 21 () Not Given varicella virus vaccine DoD influenza virus vaccine,split 2005 [id number] 15 sanofi pasteur complet ed influenza virus vaccine,s plit 12/02/05 Given Ambulat ory Pharmac y influenza virus vaccine, split virus (incl. purified surface antigen)-reti red CODE 1 2005 [id number] 15 Sanofi Pasteur ([facility]) complet ed influenza virus vaccine, split virus (incl. purified surface antigen)- retired CODE DoD typhoid Vi capsular polysaccharid e vac 2003 [id number] 101 sanofi pasteur complet ed typhoid Vi capsular polysacch aride vac 05/06/04 Given Ambulat ory Pharmac y typhoid Vi capsular polysaccharid e vaccine 0 2003 [id number] 101 Sanofi Pasteur ([facility]) complet ed typhoid Vi capsular polysacch aride vaccine DoD anthrax vaccine 2003 [id number] Emergent Biosolutions complet ed anthrax vaccine 01/01/04 Given Ambulat ory Pharmac y ANTHRAX VACCINE, UNSPECIFIED 2003 319 complet ed Lot#: [id number] Mfr: EMERGENT BIOSOLUTI [facility] [place] [facility] anthrax vaccine 6 2003 [id number] Emergent [employer]Defense [employer] [place] ([facility]) complet ed anthrax vaccine DoD tuberculin purified protein derivative 2002 [id number] 96 sanofi pasteur complet ed tuberculi n purified protein derivativ e 08/28/03 Given Ambulat ory Pharmac y influenza virus vaccine, whole virus [id number] [facility] complet ed influenza virus vaccine, whole virus 08/28/03 Given Ambulat ory Pharmac y influenza virus vaccine, whole virus 0 2002 [id number] 16 [facility] ([facility]) complet ed influenza virus vaccine, whole virus DoD anthrax vaccine 2002 [id number] [employer] complet ed anthrax vaccine 05/01/03 Given Ambulat ory Pharmac y ADENOVIRUS, UNSPECIFIED FORMULATION 2002 82 complet ed Lot#: [id number] Mfr: EMERGENT BIOSOLUTI ONS [facility] [place] anthrax vaccine 5 2002 [id number] [employer] [place] ([facility]) complet ed anthrax vaccine DoD vaccinia (smallpox) vaccine 0 2002 75 () Not Given vaccinia (smallpox ) vaccine DoD anthrax vaccine 2001 [id number] [employer] complet ed anthrax vaccine 10/31/02 Given Ambulat ory Pharmac y ANTHRAX VACCINE, UNSPECIFIED 2001 319 complet ed Lot#: [id number] Mfr: [facility]I [facility] anthrax vaccine 4 2001 [id number] Emergent BioDefense [facility] ([facility]) complet ed anthrax vaccine DoD influenza virus vaccine, whole virus 2001 [id number] 16 sanofi pasteur complet ed influenza virus vaccine, whole virus 09/26/02 Given Ambulat ory Pharmac y tuberculin purified protein derivative 2001 [id number] 96 sanofi pasteur complet ed tuberculi n purified protein derivativ e 09/26/02 Given Ambulat ory Pharmac y influenza virus vaccine, whole virus 0 2001 [id number] 16 Sanofi Pasteur ([facility]) complet ed influenza virus vaccine, whole virus DoD influenza virus vaccine, whole virus 2000 [id number] 16 sanofi pasteur complet ed influenza virus vaccine, whole virus 09/27/01 Given Ambulat ory Pharmac y tuberculin purified protein derivative 2000 [id number] 96 sanofi pasteur complet ed tuberculi n purified protein derivativ e 09/27/01 Given Ambulat ory Pharmac y influenza virus vaccine, whole virus 0 2000 [id number] 16 Sanofi Pasteur ([facility]MC) complet ed influenza virus vaccine, whole virus [facility] tetanus-dipht h toxoids (Td) adult/adol 2000 [id number] [employer] complet ed tetanus-d iphth toxoids (Td) adult/ado l 03/16/01 Given Ambulat ory Pharmac y tetanus and diphtheria toxoids, adsorbed, preservative free, for adult use (2 Lf of tetanus toxoid and 2 Lf of diphtheria toxoid) 0 2000 [id number] 09 [place] (CON) complet ed tetanus and diphtheri a toxoids, adsorbed, preservat kenneth free, for adult use (2 Lf of tetanus toxoid and 2 Lf of diphtheri a toxoid) DoD influenza virus vaccine, whole virus [id number] [facility] complet ed influenza virus vaccine, whole virus 11/30/00 Given Ambulat ory Pharmac y influenza virus vaccine, whole virus 0 2000 [id number] 16 [facility] ([facility]) complet ed influenza virus vaccine, whole virus DoD yellow fever vaccine 1999 37 complet ed yellow fever vaccine 08/03/00 Given Ambulat ory Pharmac y tuberculin purified protein derivative 1999 [id number] 96 [employer] [facility] complet ed tuberculi n purified protein derivativ e 08/03/00 Given Ambulat ory Pharmac y YELLOW FEVER LIVE 1999 37 complet ed yellow fever vaccine [facility] yellow fever vaccine 0 1999 37 () complet ed yellow fever vaccine DoD anthrax vaccine 1999 [id number] 24 [employer] complet ed anthrax vaccine 05/31/00 Given Ambulat ory Pharmac y ANTHRAX VACCINE, UNSPECIFIED 1999 319 complet ed Lot#: [id number] Mfr: EMERGENT BIOSOLUTI ONS [facility] anthrax vaccine 3 1999 [id number] [employer] [place] ([facility]) complet ed anthrax vaccine DoD anthrax vaccine 1999 [id number] [employer] complet ed anthrax vaccine 04/13/00 Given Ambulat ory Pharmac y ANTHRAX VACCINE, UNSPECIFIED 1999 319 complet ed Lot#: [id number] Mfr: EMERGENT BIOSOLUTI [facility] anthrax vaccine 2 1999 [id number] [employer] [place] (M[facility]) complet ed anthrax vaccine DoD tuberculin purified protein derivative 1999 [id number] 96 [employer] [facility] complet ed tuberculi n purified protein derivativ e 03/30/00 Given Ambulat ory Pharmac y anthrax vaccine 1999 [id number] 24 [employer] complet ed anthrax vaccine 03/30/00 Given Ambulat ory Pharmac y ANTHRAX VACCINE, UNSPECIFIED 1999 319 complet ed Lot#: [id number] Mfr: EMERGENT BIOSOLUTI ONS [facility] anthrax vaccine 1 1999 [id number] [employer] [place] ([facility]) complet ed anthrax vaccine DoD hepatitis A adult vaccine 1999 [id number] Merck & Company Inc complet ed hepatitis A adult vaccine 01/20/00 Given Ambulat ory Pharmac y HEP A, ADULT 2 1999 52 complet ed hepatitis A vaccine, adult dosage Lot#: [id number] Mfr: [employer] [facility] hepatitis A vaccine, adult dosage 2 1999 [id number] 52 Merck (MSD) complet ed hepatitis A vaccine, adult dosage DoD influenza virus vaccine, whole virus [id number] [employer] complet ed influenza virus vaccine, whole virus 10/28/99 Given Ambulat ory Pharmac y influenza virus vaccine, whole virus 0 [id number] 16 [facility] ([facility]) complet ed influenza virus vaccine, whole virus DoD tuberculin purified protein derivative 1998 [id number] 96 sanofi pasteur complet ed tuberculi n purified protein derivativ e 08/05/99 Given Ambulat ory Pharmac y meningococcal polysaccharid e (MPSV4) [id number] 32 sanofi pasteur complet ed meningoco ccal polysacch aride (MPSV4) 04/05/99 Given Ambulat ory Pharmac y MENINGOCOCCAL MPSV4 1998 32 complet ed meningoco ccal polysacch aride vaccine (MPSV4) Lot#: [id number] Mfr: SANOFI PASTEUR [facility] meningococcal polysaccharid e vaccine (MPSV4) 0 [id number] 32 Sanofi Pasteur ([facility]) complet ed meningoco ccal polysacch aride vaccine (MPSV4) DoD tuberculin purified protein derivative 1998 [id number] 96 [facility] complet ed tuberculi n purified protein derivativ e 04/04/99 Given Ambulat ory Pharmac y hepatitis A adult vaccine 1998 [id number] 52 Merck & Company Inc complet ed hepatitis A adult vaccine 04/04/99 Given Ambulat ory Pharmac y typhoid vaccine, live, oral 1998 [id number] 25 [employer] [place] complet ed typhoid vaccine, live, oral 04/04/99 Given Ambulat ory Pharmac y measles/mumps /rubella virus vaccine [id number] [facility] complet ed measles/m umps/rube lla virus vaccine 04/04/99 Given Ambulat ory Pharmac y MMR 1998 03 complet ed measles/m umps/rube lla virus vaccine Lot#: [id number] [facility] measles, mumps and rubella virus vaccine 0 [id number] [facility] (CON) complet ed measles, mumps and rubella virus vaccine DoD typhoid vaccine, live, oral 0 1998 [id number]. 1B 25 [facility] (SI) complet ed typhoid vaccine, live, oral DoD hepatitis A vaccine, adult dosage 1 1998 [id number] 52 [employer]ck (MSD) complet ed hepatitis A vaccine, adult dosage DoD HEP A, ADULT 1 1998 52 complet ed hepatitis A vaccine, adult dosage Lot#: [id number] Mfr: [employer] [facility] influenza virus vaccine, whole virus [id number] sanofi pasteur complet ed influenza virus vaccine, whole virus 08/11/98 Given Ambulat ory Pharmac y influenza virus vaccine, whole virus 0 [id number] Sanofi Pasteur ([facility]) complet ed influenza virus vaccine, whole virus DoD influenza virus vaccine, whole virus 1996 16 complet ed influenza virus vaccine, whole virus 09/25/97 Given Ambulat ory Pharmac y influenza virus vaccine, whole virus 0 1996 16 () complet ed influenza virus vaccine, whole virus DoD typhoid, parenteral, AKD 1995 53 complet ed typhoid, parentera l, AKD 06/25/96 Given Ambulat ory Pharmac y TYPHOID, PARENTERAL, AKD (U.S. ) 1995 53 complet ed typhoid, parentera l, AKD [facility] typhoid vaccine, parenteral, jamey-oscar d, dried ([place].S. ) 2 1995 53 () complet ed typhoid vaccine, parentera l, acetone-k illed, dried ([place]S. ) DoD tetanus-dipht h toxoids (Td) adult/adol 1990 09 complet ed tetanus-d iphth toxoids (Td) adult/ado l 01/23/91 Given Ambulat ory Pharmac y poliovirus vaccine, live, oral 1990 02 complet ed polioviru s vaccine, live, oral 01/23/91 Given Ambulat ory Pharmac y POLIO, UNSPECIFIED FORMULATION 1990 89 complet ed polioviru s vaccine, live, oral [facility] [place] [facility] trivalent poliovirus vaccine, live, oral 0 1990 02 () complet ed trivalent polioviru s vaccine, live, oral DoD tetanus and diphtheria toxoids, adsorbed, preservative free, for adult use (2 Lf of tetanus toxoid and 2 Lf of diphtheria toxoid) 0 1990 09 () complet ed tetanus and diphtheri a toxoids, adsorbed, preservat kenneth free, for adult use (2 Lf of tetanus toxoid and 2 Lf of diphtheri a toxoid) DoD yellow fever vaccine 1989 37 complet ed yellow fever vaccine 07/26/90 Given Ambulat ory Pharmac y YELLOW FEVER LIVE 1989 37 complet ed yellow fever vaccine [facility] [place] [facility] yellow fever vaccine 0 1989 37 () complet ed yellow fever vaccine DoD meningococcal polysaccharid e (MPSV4) 1989 32 complet ed meningoco ccal polysacch aride (MPSV4) 01/22/90 Given Ambulat ory Pharmac y MENINGOCOCCAL MPSV4 1989 32 complet ed meningoco ccal polysacch aride vaccine (MPSV4) [facility] [place] [facility] meningococcal polysaccharid e vaccine (MPSV4) 0 1989 32 () complet ed meningoco ccal polysacch aride vaccine (MPSV4) DoD Results Combined list of recent chemistry, hematology and other laboratory results from Department of Defense and Veterans Affairs, ranging from 15 months to all on record, depending upon the facility. Order Name Results Value Reference Range Date Interpretation Specimen Comments Source OCCULT BLOOD FIT X1 SCREEN( IN-HOUS E) HEMOGLOBIN. GASTROINTES TINAL.LOWER [PRESENCE] IN STOOL BY IMMUNOASSAY POSITIVE 07/11 HH Specimen Type: FECES No comment entered. Ordering Provider: Juan LILLY Report Released Date/Time: Jul 02, 2024 03:02 PM Reporting Lab: [facility] [place] [facility] [address] [facility] [address] Performing Lab: [facility] [place] [facility] [address] [facility] [address] [facility] [place] [facility] Vital Signs Combined list of inpatient and outpatient Vital Signs from Department of Defense and Veterans Affairs, ranging from 12 months to all on record, depending upon the facility. Vital Sign Value Date Comments Source No data available for this section Ambulatory Pharm acy SYSTOLIC BLOOD PRESSURE 134 11/11/20 24 08:59:08 [facility] [place] [facility] DIASTOLIC BLOOD PRESSURE 91 024 08:59:08 [facility] [place] [facility] PULSE OXIMETRY 98 11/11/2024 08:59:08 [facility] [place] [facility] WEIGHT 167 11/11/2024 08:59:08 [facility] [place] [facility] BMI 26kg/m2 11/11/2024 08:59:08 [facility] [place] [facility] PAIN 3 11/11/2024 08:59:08 [facility] [place] [facility] HEIGHT 67 11/11/2024 08:59:08 [facility] [place] [facility] TEMPERATURE 98.3 11/11/2024 08:59:08 [facility] [place] [facility] PULSE 71 11/11/2024 08:59:08 [facility] [place] [facility] RESPIRATION 20 11/11/2024 08:59:08 [facility] [place] [facility] SYSTOLIC BLOOD PRESSURE 130 08/11/20 24 15:35:43 [facility] [place] [facility] DIASTOLIC BLOOD PRESSURE 74 024 15:35:43 [facility] [place] [facility] PULSE OXIMETRY 98 08/11/2024 15:35:43 [facility] [place] [facility] WEIGHT 162 08/11/2024 15:35:43 [facility] [place] [facility] BMI 25kg/m2 08/11/2024 15:35:43 [facility] [place] [facility] PAIN 4 08/11/2024 15:35:43 [facility] [place] [facility] TEMPERATURE 98.1 08/11/2024 15:35:43 [facility] [place] [facility] PULSE 76 08/11/2024 15:35:43 [facility] [place] [facility] RESPIRATION 16 08/11/2024 15:35:43 [facility] [place] [facility] SYSTOLIC BLOOD PRESSURE 112 07/02/20 14:52:46 [facility] [place] [facility] DIASTOLIC BLOOD PRESSURE 74 024 14:52:46 [facility] [place] [facility] PULSE OXIMETRY 97 07/02/2024 14:52:46 [facility] [place] [facility] WEIGHT 160 07/02/2024 14:52:46 [facility] [place] [facility] BMI 25kg/m2 07/02/2024 14:52:46 [facility] [place] [facility] PAIN 0 07/02/2024 14:52:46 [facility] [place] [facility] HEIGHT 67 07/02/2024 14:52:46 [facility] [place] [facility] TEMPERATURE 97.9 07/02/2024 14:52:46 [facility] [place] [facility] PULSE 76 07/02/2024 14:52:46 [facility] [place] [facility] RESPIRATION 16 07/02/2024 14:52:46 [facility] [place] [facility] Encounters Combined list of: 1) Encounters from Department of Veterans Affairs facilities going back up to thelast 18 months. 2) Encounters from the Department of Defense facilities going back up to 280 months. Location Location Details Encounter Type Encounter Number Reason For Visit Attending Provider ADM Date DC Date Status Disposition Source Theater Facility OUTPATIENT [id number] 04/01 Released w/o Limitations [facility] OUTPATIENT [id number] 04/09 Released w/o Limitations [facility] OUTPATIENT [id number] 04/16 Released w/o Limitations [place] [address](AFN G 104 Med Sq-FM) OUTPATIENT [id number] Notes Entered by: JESICA WHITHEEAD R 31 May 2017 0811 ------- ------- ------- ------- -- [employer] PHAQ KAN WHITEHEAD 05/31 Released w/o Limitations [facility] [place] [address](A FNG 104 Med Sq-FM) [place] [address](AFN G 104 Med Sq-FM) OUTPATIENT [id number] Notes Entered by: KATELYNN ONEILL 28 Dec 2017 1525 ------- ------- ------- ------- -- [employer] BERNARDOQ KATELYNN ONEILL 12/28 Released w/o Limitations [facility] [place] [address](A FNG 104 Med Sq-FM) [place] [address](AFN G 104 Med Sq-FM) OUTPATIENT [id number] Notes Entered by: JANETH URIOSTEGUI 17 Jan 2018 1329 ------- ------- ------- ------- -- LILY Kuhn 01/17 Released w/o Limitations [facility] [place] [address](A FNG 104 Med Sq-FM) [place] [address](AFN G 104 Med Sq-PH) OUTPATIENT [id number] Notes Entered by: JANETH URIOSTEGUI 09 May 2018 1046 ------- ------- ------- ------- -- [facility] [place] [place] [address](A FNG 104 Med Sq-PH) [place] [address](AFN G 104 Med Sq-FM) OUTPATIENT [id number] Notes Entered by: LILY CANELA 23 Jan 2019 0858 ------- ------- ------- ------- -- PHAQ LILY CANELA 01/23 Released w/o Limitations [facility] [place] [address](A FNG 104 Med Sq-FM) [place] [address](AFN G 104 Med Sq-FM) OUTPATIENT [id number] Notes Entered by: JANETH URIOSTEGUI 23 Jan 2019 0924 ------- ------- ------- ------- -- [facility] CATA HAND 01/23 [facility]ased w/o Limitations [facility] [place] [place] [address](A FNG 104 Med Sq-FM) [place] [address](AFN G 104 Med Sq-FM) OUTPATIENT [id number] Notes Entered by: LILY CANELA 03 Sep 2019 0849 ------- ------- ------- ------- -- med report LILY CANELA 09/03 Released w/o Limitations [facility] [place] [place] [address](A FNG 104 Med Sq-FM) [place] [address](AFN G 104 Med Sq-FM) OUTPATIENT [id number] Notes Entered by: LILY CANELA 11 Sep 2019 1053 ------- ------- ------- ------- -- back pain LILY CANELA 09/11 Released w/o Limitations [facility] [place] [address](A FNG 104 Med Sq-FM) [place] [address](AFN G 104 Med Sq-FM) OUTPATIENT [id number] Notes Entered by: LILY CANELA 26 Nov 2019 0755 ------- ------- ------- ------- -- DIMITRI HILTONLILY 11/26 Released w/o Limitations [facility] [place] [address](A FNG 104 Med Sq-FM) [place] [address](AFN G 104 Med Sq-FM) OUTPATIENT [id number] 6 Notes Entered by: LILY CANELA 01 Jun 2020 1017 ------- ------- ------- ------- -- LILY BISHOP 06/01 Released w/o Limitations [facility] [place] [address](A FNG 104 Med Sq-FM) [place] [address](AFN G 104 Med Sq-FM) OUTPATIENT [id number] Notes Entered by: WARREN HAND 09 Aug 2020 1050 ------- ------- ------- ------- -- CATA KNIGHT 08/09 Released w/o Limitations [facility] [place] [address](A FNG 104 Med Sq-FM) [place] [address](AFN G 104 Med Sq-FM) OUTPATIENT [id number] 5 Notes Entered by: LILY CANELA 11 Oct 2020 1044 ------- ------- ------- ------- -- EMMANUEL2 LILY CANELA 10/11 Released w/o Limitations [facility] [place] [address](A FNG 104 Med Sq-FM) [place] [address](AFN G 104 Med Sq-FM) OUTPATIENT [id number] Notes Entered by: HILTONMAUREEN MCKEONNUHA ZAYAS 06 Jan 2021 0858 ------- ------- ------- ------- -- PHAQ MAUREEN CANELANUHA ZAYAS 01/06 Released w/o Limitations [facility] [place] [address](A FNG 104 Med Sq-FM) [place] [address](AFN G 104 Med Sq-FM) OUTPATIENT [id number] HILTON LILY ZAYAS 01/26 Released w/o Limitations [facility] [place] [address](A FNG 104 Med Sq-FM) [place] [address](AFN G 104 Med Sq-FM) OUTPATIENT [id number] Notes Entered by: BERT AKINS 29 Jan 2022 1449 ------- ------- ------- ------- -- Annual Audiogr am / PHAQ LILY CANELA CHANA 01/29 Released w/o Limitations [facility] [place] [address](A FNG 104 Med Sq-FM) [place] [address](AFN G 104 Med Sq-FM) OUTPATIENT [id number] Notes Entered by: JESICA WHITEHEAD R 25 Jan 2023 0750 ------- ------- ------- ------- -- PHAQ KAN WHITEHEAD 01/25 Released w/o Limitations [facility] [place] [address](A FNG 104 Med Sq-FM) [facility] [facility] Outpatient Encounter [id number] 10/29 [facility] [place] En[facility] [id number] 06/10 [facility] [place] 8203R-104 MDG Between Visit [id number] 06/11 Discharge Disposition: Home or Self Care 8203R-1 04 MDG [facility] [place] Outpatient Encounter [id number] 06/19 [facility] [place] [place] Out[facility] Encounter [id number] Diagnos is: ICD-10- CM L30.9 Dermati tis, unspeci fied
JENNIFER WRIGHT 06/30 [facility] [place] [place] [facility] Outpatient Encounter [id number] 07/02 [facility] [place] [place] [facility] OFFICE O/P EST LOW 20 MIN [id number] Diagnos is: ICD-10- CM F43.10 Post-tr aumatic stress disorde r, unspeci fied
RICK LILLY 07/02 [facility] [place] [place] [facility] PSYTX W PT 30 MINUTES [id number] Diagnos is: ICD-10- CM F43.9 Reactio n to severe stress, unspeci fied
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<br/ > PARI NAVAS 07/13 [facility] [place] 8203R-104 MDG Care Not Rendered [id number] 07/14 Discharge Disposition: Home or Self Care 8203R-1 04 MDG [facility] [place] [facility] Outpatient Encounter [id number] JENNIFER WRIGHT 07/16 [facility] [place] [place] [facility] Outpatient Encounter [id number] Diagnos is: ICD-10- CM Z02.89 Encount er for other adminis trative examina tions<b r/> SHAHZAD MEJIA 07/17 [facility] [place] [place] [facility] PSYTX W PT 45 MINUTES [id number] Diagnos is: ICD-10- CM F32.A Depress ion, unspeci fied
AZEB DYE 07/21 [facility] [place] [facility] zzJoint Umbrella Org Between Visit 07/21 Discharge Disposition: Home or Self Care zzJoint Umbrell a Org [facility] [place] Outpatient Encounter [id number] 1.07/22 [facility] [place] [place] Outpatient Encounter [id number] 1.07/22 [facility] [place] [place] [facility] Outpatient Encounter [id number] 1.08/05 /2024 [facility] [place] [facility] [place] [facility] Outpatient Encounter [id number] [facility] [place] [facility] [place] [facility] OFFICE O/P EST LOW 20 MIN [id number] 1. Diagnos is: ICD-10- CM M54.2 Cervica lgia
MAXX RICK Espinoza 08/11 [place] [facility] [place] [facility] [place] [facility] TELEHEALTH FACILITY FEE 1. Diagnos is: ICD-10- CM G47.30 Sleep apnea, unspeci fied
HOLLY,[facility] TAMI 09/21 [place] [facility] [place] [facility] (531GE) SLEEP STUDY UNATT&RESP EFFT [id number] Diagnos is: ICD-10- CM G47.30 Sleep apnea, unspeci fied
HOLLY,[facility] TAMI 09/21 [facility] (531GE) [place] [facility] [place] [facility] PSYTX W PT 45 MINUTES [id number] 1. Diagnos is: ICD-10- CM F32.A Depress ion, unspeci fied
AZEB DYE 09/22 [facility] [place] [facility] 8203R-104 MDG Mass Vaccine [id number] 09/29 8203R-1 04 MDG [facility] [place] [facility] Outpatient Encounter [id number] 10/07 [place] [facility] [place] [facility] [place] [facility] PSYTX W PT 30 MINUTES [id number] Diagnos is: ICD-10- CM F32.A Depress ion, unspeci fied
AZEB DYE R 10/09 [place] [facility] [place] [facility] (631GE) SLEEP STUDY UNATT&RESP EFFT [id number] Diagnos is: ICD-10- CM R06.83 Snoring
HOLLY,JOSE TAMI 10/19 [facility] (531GE) [facility] [place] [facility] Outpatient Encounter [id number] 1. HOLLY,FREDE TAMI 10/21 [place] [facility] [place] [facility] [place] [facility] SELF-MGMT EDUC & TRA[place] 1 [place] [phone] 1. Diagnos is: ICD-10- CM G47.33 Obstruc tive sleep apnea (adult) ([facility])
HOLLY,PERNELLWI TAMI 10/21 [place] [facility] [place] [facility] [place] [facility] Outpatient Encounter [id number] 11/02 [place] [facility] [place] [facility] 8203R-104 MDG Between Visit [id number] 11/05 Discharge Disposition: Home or Self Care 8203R-1 04 MDG [facility] [place] [facility] OFFICE O/P EST LOW 20 MIN [id number] Diagnos is: ICD-10- CM K92.1 Janeena< br/> RICK LILLY 11/11 [place] [facility] [place] [facility] Procedures Combined list of: 1) Procedures from Department of Veterans Affairs facilities going back up to thelast 18 months, not all VA non-surgical procedures are included; 2) All procedures from the Department of Defense facilities. Procedure Procedure Type Code Date Perfomer Comments Sourc e No data available for this section Ambulatory P harmacy Social History Combined list of available smoking, tobacco, and other social history from Department of Defense and Veterans Affairs facilities. Social History Type Response Date Comment Sourc e Tobacco smoking status NHIS VA-TOBACCO NEVER USED 06/19/2024 [facility] [place] [facility] This section is an empty social history section. DoD Assessment and Plan Combined list of future care activities from Department of Defense and Veterans Affairs facilities (e.g., assessment and plan notes, appointments, orders, and referrals). Additional future care activities may be listed in the Plan of Care section. Result Assessment and Plan Date Source Assessment and Plan Extracted from:Title : Audiogram Baseline Re-Establish Author: HU AMOS Date: 06/18/24 Received [facility] Audiology review on 09 JUNE 2024.?Re-Established baseline per [facility] guidance. Member will continue to be followed on HCP. 11/12/2024 Ambulatory Pharmacy Plan of Care List of future care activities from Department of Veterans Affairs facilities. Additional future care activities may be listed in the Assessment and Plan section. Date/Time Care Activity Care Activity Detail Facili ty 10/09/2024 Consult Order CRANIAL ELECTROT HERAPY STIMULATION/[facility] OUTPT Cons Manager [facility] [place] [facility] 11/05/2024 Consult Order SLEEP SFT IFC Co ns Manager [facility] [place] [facility] Functional Status Combined list of recent functional and cognitive assessments recorded at Department of Defense and Veterans Affairs ([place]VA Functional [place] Measurement (FIM) Scale: 1 = Total Assistance (Subject = 0% +), 2 = Maximal Assistance (Subject = 25% +), 3 = Moderate Assistance (Subject = 50% +), 4 = Minimal Assistance (Subject = 75% +), 5 = Supervision, 6 = Modified [place] (Device), 7 = Complete [place] (Timely, Safely). Assessment Date/Time Source Assessment Type Assessment Skill Assessment Score Assessment Details No data available for this section
--- OUTSIDE RECORDS SUMMARY | 2024-11-12 09:48 | XMS_ITS | Encounter Summary ---
Author Name [facility] [place] [facility] [place] Address [address] [place] [address] Care Team Providers Care Project Construction Assistant Manager Name Role Phone RICK LILLY Primary Care Provider Unavail able Insurance Providers: [...] Name Patient's Relationship to Policy Mosqueda TRACY [facility] FEDERAL PREFERRED PROVIDER ORGANIZAT ION (PPO) BASIC SELF+ ONE Nov 27, 2020 113 [id number] [phone] Anabell SUERO R PATIENT BCBS [place] FEP PREFERRED PROVIDER ORGANIZAT ION (PPO) BASIC SELF PLUS ONE Nov 27, 2020 113 [id number] [phone] Anabell SUERO R PATIENT [employer] FEPRX PLAN PRESCRIPT ION CAREM ARK FEPRX Nov 27, 2020 [id number] Anabell SUERO R PATIENT [place]ARK-F EP BCBS PRESCRIPT ION FEP CAREM ARK Nov 27, 2020 [id number] [phone] AUCLAIR,C HRISTOPHE R PATIENT Selected Encounter This section includes the information on record at [place] for the Encounter. Date/Time Encounter Type Encounter Description Reason Pro vider Source Jun 10, 2024 02:50 PM Outpatient Encounter PRIMARY CARE/MEDICINE IHE Encounter Template Text not used by [place] Plan of Treatment: Future Appointments (+ 6 months) and Future Tests (+/- 45 days) The Plan of Treatment section includes future care activities for the patient from all [place] [facility] This section includes future appointments and future orders which are active, pending or scheduled. Future Appointments This section includes appointments that were scheduled to occur 6 months from the date of the Encounter, up to a maximum of 20 appointments. The data comes from all [facility]. Appointment Date/Time Appointment Type Appointme nt Facility Name Jul 02, 2024 03:00 PM AMBULATORY [place]ICINE [place] [facility] [place] [facility] Jul 02, 2024 03:30 PM AMBULATORY [place] [facility] [place] [facility] Jul 17, 2024 02:30 PM [place]ORY [place] [facility] [place] [facility] Jul 21, 2024 08:00 AM AMBUL[place]ORY [place] [facility] [place] [facility] Aug 11, 2024 03:30 PM AM[place]ORY [place] [facility] [place] [facility] Sep 21, 2024 10:00 AM [place] [facility] [place] [facility] Sep 21, 2024 10:01 AM AM[place]UL[place]ORY [place] [facility] [place] [facility] Sep 22, 2024 11:00 AM AM[place]UL[place]ORY [place] [facility] [place] [facility] Oct 09, 2024 08:30 AM AMBUL[place]ORY [place] [facility] [place] [facility] Oct 26, 2024 10:00 AM AMBULATORY - NONE [place] [facility] [place] [facility] Nov 11, 2024 09:00 AM AMBULATORY - [place]ICINE [place] [facility] [place] [facility] Active, Pending, and Scheduled Orders This section includes a listing of several types of active, pending, and scheduled orders, including clinic medications orders, diagnostic test orders, procedure orders and consult orders; where the start date of the order is 45 days before the date of the Encounter or 45 days after the date of theEncounter. The data comes from all [place] treatment facilities. Test Date/Time Test Type Test Details Facility Name Jul 16, 2024 10:57 AM Consult Order COMMUNITY CARE-COLONOSCOPY DIAGNOSTIC Cons Supervisor Endless Track Vehicle's Choice [facility] Encounter Notes: All associated encounter notes This section contains the clinical notes associated to the Encounter. Date/Time Encounter Note(s) Provider Source Jun 10, 2024 02:50 PM PRIMARY CARE TELEP EVA ENCOUNTER NOTE: LOCAL TITLE: TELEPHONE NOTE/PRIMARY CARE STANDARD TITLE: PRIMARY CARE TELEPHONE ENCOUNTER NOTE DATE OF NOTE: JUN 10, 2024@14:50 ENTRY DATE: JUN 10, 2024@14:50:29 AUTHOR: IMAN HIGGINS EXP COSIGNER: URGENCY: STATUS: COMPLETED New pt. 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
--- OUTSIDE RECORDS SUMMARY | 2024-11-12 09:49 | XMS_ITS ---
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 Name Role Phone RICK LILLY Primary Care [...] Name Patient's Relationship to Policy Mosqueda TRACY [facility] FEDERAL PREFERRED PROVIDER ORGANIZAT ION (PPO) BASIC SELF+ ONE Nov 27, 2020 113 [id number] [phone] Anabell SUERO R PATIENT BCBS MA FEP PREFERRED PROVIDER ORGANIZAT ION (PPO) BASIC SELF PLUS ONE Nov 27, 2020 [id number] Anabell SUERO R PATIENT [employer] FEPRX PLAN PRESCRIPT ION CAREM ARK FEPRX Nov 27, 2020 [id number] [phone] Anabell SUERO R PATIENT [employer]-F EP BCBS PRESCRIPT ION FEP CAREM ARK Nov 27, 2020 [id number] [phone] AUCLAIR,C HRISTOPHE R PATIENT Selected Encounter This section includes the information on record at [place] for the Encounter. Date/Time Encounter Type Encounter Description Reason Provider Source Jul 17, 2024 02:30 PM Outpatient Encounter AUDIOLOGY ICD-10-CM Z02.89 Encounter for other administrative examinations MARIE MEJIA E Encounter Template Text not used by [place] Assessments - Encounter Diagnoses This section includes the primary and secondary diagnoses documented for the Encounter. Date/Time Primary/Secondary Diagnosis Diagnosis Name Provider Source Jul 17, 2024 03:49 PM PRIMARY Encounter for other administrative examinations MARIE MEJIA Carlos Ledy [place] [facility] [place] [facility] Jul 17, 2024 03:49 PM SECONDARY Sensorineural hearing loss, bilateral MARIE MEJIA [place] [facility] [place] [facility] Jul 17, 2024 03:49 PM SECONDARY Tinnitus, bilateral MARIE MEJIA [place] [facility] [place] [facility] Plan of Treatment: Future Appointments (+ 6 months) and Future Tests (+/- 45 days) The Plan of Treatment section includes future care activities for the patient from all [place] [facility] This section includes future appointments and future orders which are active, pending or scheduled. Future Appointments This section includes appointments that were scheduled to occur 6 months from the date of the Encounter, up to a maximum of 20 appointments. The data comes from all [place] treatment facilities. Appointment Date/Time Appointment Type Appointme nt Facility Name Jul 21, 2024 08:00 AM AMBULATORY - PS[place]IATRY [place] [facility] [place] [facility] Aug 11, 2024 03:30 PM AMBULATORY - MEDICINE [place] [facility] [place] [facility] Sep 21, 2024 10:00 AM AMBULATORY - MEDICINE [place] [facility] [place] [facility] Sep 21, 2024 10:01 AM AMBULATORY - MEDICINE [place] [facility] [place] [facility] Sep 22, 2024 11:00 AM AMBULATORY - PS[place]CHIATRY [place] [facility] [place] [facility] Oct 09, 2024 08:30 AM AMBULATORY - PS[place]CHIATRY [place] [facility] [place] [facility] Oct 26, 2024 10:00 AM AMBULATORY - NONE [place] [facility] [place] [facility] Nov 11, 2024 09:00 AM AMBULATORY - MEDICINE [place] [facility] [place] [facility] Active, Pending, and Scheduled Orders This section includes a listing of several types of active, pending, and scheduled orders, including clinic medications orders, diagnostic test orders, procedure orders and consult orders; where the start date of the order is 45 days before the date of the Encounter or 45 days after the date of theEncounter. The data comes from all [place] treatment facilities. Test Date/Time Test Type Test Details Facility Name Jul 16, 2024 10:57 AM Consult Order COMMUNITY CARE-COLONOSCOPY DIAGNOSTIC Cons Maritime Engineer's Choice [facility] [address] [facility] Lab Results: +/- 30 days of the encounter This section includes the Chemistry and Hematology Lab Results on record with [place] for the patient. Radiology Reports and Pathology Reports are provided separately, in subsequent sections. Lab Results This section contains the Chemistry/Hematology Results that were resulted 30 days before or 30 daysafter the date of the Encounter. Date/Time Source Result Type Result - Unit Interpretation Reference Range Comment Jul 11, 2024 05:30 AM [facility] OCCULT BLOOD FIT X1 SCREEN(IN-HOUSE) Specimen Type: FECES No comment entered. Ordering Provider: OCTAVIANO LILLY Report Released Date/Time: Jul 02, 2024 03:02 PM Reporting Lab: [facility] [address] [facility] [address] Performing Lab: [address] [address] OCCULT BLOOD (FIT)#1 OF 1 POSITIVE HH NEG Social History: Smoking Status (Most current) and Tobacco Use (All prior to encounter date) This section includes the most current, and the historical, smoking and tobacco- related health factors from the [place] facility where the Encounter took place. Current Smoking Status This section includes the most current smoking, or tobacco-related health factor, from the [place] facility where the Encounter took place. Date/Time Current Smoking Status Comment Ava conde Jun 19, 2024 02:14 PM VA-TOBACCO NEVER USED [facility] [address] [facility] Encounter Notes: All associated encounter notes This section contains the clinical notes associated to the Encounter. Date/Time Encounter Note(s) Provider Source Jul 17, 2024 02:30 PM C & P EXAMINATION NOTE: LOCAL TITLE: COMPENSATION AND PENSION EXAM STANDARD TITLE: C & P EXAMINATION NOTE DATE OF NOTE: JUL 17, 2024@14:30 ENTRY DATE: JUL 17, 2024@16:51:15 AUTHOR: CESAR MEJIA: URGENCY: STATUS: COMPLETED COMPENSATION AND PENSION EXAM Has ADDENDA Hearing Loss and Tinnitus Disability Benefits Questionnaire Name of patient/: GEORGE SUERO Is this DBQ being completed in conjunction with a [place] [id number], C&P Examination Request? [X] Yes [ ] No How was the examination completed? (check all that apply) [X] In-person examination [X] Records reviewed [ ] Examination via approved video telehealth [ ] Other, please specify in comments box Comments: DEJON and Evidence Review Indicate method used to obtain medical information to complete this document: [ ] Review of available records (without in-person or video telehealth examination) using the Acceptable Clinical Evidence (DEJON) process because the existing medical evidence provided sufficient information on which to prepare the questionnaire and such an examination will likely provide no additional relevant evidence. [ ] Review of available records in conjunction with an interview with the [place] (without in-person or telehealth examination) using the DEJON process because the existing medical evidence supplemented with an interview provided sufficient information on which to prepare the questionnaire and such an examination would likely provide no additional relevant evidence. 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 Objective Findings a. Puretone thresholds in decibels (air conduction): RIGHT EAR + + A B C D E F G ========+========+======= =+========+========+====== ==+========+========+ 500 1000 2000 3000 4000 6000 8000 Avg Hz Hz* Hz Hz Hz Hz Hz Hz (B-E) ========+========+======= =+========+========+====== ==+========+======== 10 15 15 10 15 20 30 [id number] + + LEFT EAR + + A B C D E F G ========+========+======= =+========+========+====== ==+========+========+ 500 1000 2000 3000 4000 6000 8000 Avg Hz Hz* Hz Hz Hz Hz Hz Hz (B-E) ========+========+======= =+========+========+====== ==+========+======== 5 15 25 20 35 35 40 [id number] + + * The puretone threshold at 500 Hz is not used in determining the evaluation but is used in determining whether or not a ratable hearing loss exists. The average of B, C, D, and E. CNT - Could Not Test b. Were there one or more frequency(ies) that could not be tested: No c. Validity of puretone test results: Test results are valid for rating purposes. d. Speech Discrimination Score ([place] [facility] word list): + + RIGHT EAR 94% +========= LEFT EAR 98% + + e. Appropriateness of Use of Word Recognition Score ([facility] word list): Right Ear: Is Word Discrimination Score available? Yes Word Discrimination Score appropriateness: Use of speech recognition score is appropriate for this [place]. Left Ear: Is Word Discrimination Score available? Yes Word Discrimination Score appropriateness: Use of word recognition score is appropriate for this . f. Audiologic Findings Summary of Immittance (Tympanometry) Findings: + + RIGHT EAR LEFT EAR +=== += Acoustic immittance [X] Normal [ ] Abnormal [X] Normal [ ] Abnormal +=== += Ipsilateral Acoustic Reflexes [X] Normal [ ] Abnormal [X] Normal [ ] Abnormal +=== += Contralateral Acoustic Reflexes [X] Normal [ ] Abnormal [X] Normal [ ] Abnormal +=== += Unable to interpret reflexes due to [ ] [ ] artifact +=== += Unable to obtain/ maintain seal [ ] [ ] + + 2. Diagnosis RIGHT EAR --------- [ ] Normal hearing [ ] Conductive hearing loss ICD code: [ ] Mixed hearing loss ICD code: [ ] Sensorineural hearing loss (in the frequency range of 500-4000 Hz)* ICD code: [X] Sensorineural hearing loss (in the frequency range of 6000 Hz or higher frequencies) ICD code: H90.3 [ ] Significant changes in hearing thresholds in service LEFT EAR -------- [ ] Normal hearing [ ] Conductive hearing loss ICD code: [ ] Mixed hearing loss ICD code: [X] Sensorineural hearing loss (in the frequency range of 500-4000 Hz)* ICD code: H90.3 [ ] Sensorineural hearing loss (in the frequency range of 6000 Hz or higher frequencies) ICD code: [ ] Significant changes in hearing thresholds in service NOTES: * The [place] may have hearing loss at a level that is not considered to be a disability for VA purposes. This can occur when the auditory thresholds are greater than 25 dB at one or more frequencies in the 500-4000 Hz range. The may have impaired hearing, but it does not meet the criteria to be considered a disability for VA purposes. For VA purposes, the diagnosis of hearing impairment is based upon testing at frequency ranges of 500, 1000, 2000, 3000, and 4000 Hz. If there is no HL in the 500-4000 Hz range, but there is HL above 4000 Hz, check this box. The [place] may have a significant change in hearing threshold in service, but it does not meet the criteria to be considered a disability for VA purposes. (A significant change in hearing threshold may indicate noise exposure or acoustic trauma.) 3. Etiology Right Ear Was there a permanent positive threshold shift (worse than reference threshold) greater than normal measurement variability at any frequency between 500 and 6000 Hz for the right ear? Yes Opinion provided for the right ear: Yes If present, is the [place]'s right ear hearing loss at least as not (likelihood is at least approximately balanced or nearly equal, if not higher) caused by or a result of an event in service? 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 He reports total dates of service from 1989-present. Significant threshold shifts occurred in both ears between enlistment audiogram dated 01/10/90 and today's audiogram. Given that 's MOS is highly probable for exposure to hazardous noise, and significant threshold shifts occurred in both ears while was in the service, 's hearing loss is at least as likely as not a result of service. Did hearing loss exist prior to service? No Left Ear Was there a permanent positive threshold shift (worse than reference threshold) greater than normal measurement variability at any frequency between 500 and 6000 Hz for the left ear? Yes Opinion provided for the left ear: Yes If present, is the 's left ear hearing loss at least as not (likelihood is at least approximately balanced or nearly equal, if not higher) caused by or a result of an event in service? 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 He reports total dates of service from 1989-present. Significant threshold shifts occurred in both ears between enlistment audiogram dated 01/10/90 and today's audiogram. Given that 's MOS is highly probable for exposure to hazardous noise, and significant threshold shifts occurred in both ears while was in the service, 's hearing loss is at least as likely as not a result of service. Did hearing loss exist prior to service? No 4. Functional impact of hearing loss Does the 's hearing loss impact ordinary conditions of daily life, including ability to work: Yes If yes, describe impact in the [place]'s own words: [place] reports, I can hear but I can't understand sound. If I'm watching TV and my is doing the dishes, I have to stop watching TV and wait until she is done. 5. Remarks, if any, pertaining to hearing loss: No response provided SECTION 2: TINNITUS 1. Medical history Does the [place] report recurrent tinnitus: Yes Date and circumstances of onset of tinnitus: [place] reports constant tinnitus in both ears, which he states has been present for years. He describes his tinnitus as a high-pitched ringing similar to a dog whistle. 2. Etiology of tinnitus At least as likely as not (likelihood is at least approximately balanced or nearly equal, if not higher) caused by or a result of noise exposure. Rationale: [place]'s MOS of [employer] is highly probable for exposure to hazardous noise. He reports total dates of service from 1989-present. Significant threshold shifts occurred in both ears between enlistment audiogram dated 01/10/90 and today's audiogram. Given that 's MOS is highly probable for exposure to hazardous noise, and significant threshold shifts occurred in both ears while was in the service, 's tinnitus is at least as likely as not a result of noise exposure. 3. Functional impact of tinnitus ------ Does the 's tinnitus impact ordinary conditions of daily life, including ability to work: Yes If yes, describe impact in the 's own words: [place] reports his tinnitus makes it difficult for him to concentrate. He reports he is no longer able to read a book because he gets too distracted by his tinnitus. reports he has to read things two or three times at work because he has difficulty concentrating. 4. Remarks, if any, pertaining to tinnitus: [facility] NOTE: [place] may request additional medical information, including additional examinations if necessary to complete VA's review of the 's application. /mony/ Anna Abad CCC-A Sales Order Specialist Signed: 07/17/2024 16:51 07/17/2024 ADDENDUM STATUS: COMPLETED Should become eligible for [place] hearing aid services, he is not a candidate for aids. Auditory Brainstem Response testing or ENT consult was offered due to asymmetric sensorineural hearing loss seen on today's audiogram. [place] declines at this time. 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 If I'm watching TV and my is doing the dishes, I have to stop watching TV and wait until she is done. [place] reports constant tinnitus in both ears, which he states has been present for years. He describes his tinnitus as a high-pitched ringing similar to a dog whistle. [place] denies congenital family history of hearing loss, or otologic history/complaints. He reports he had an episode of extreme dizziness a few years ago, and has had less intense episodes since. [place] denies occupational or recreational noise exposure. /mony/ Anna Abad CCC-A Sales Order Specialist Signed: 07/17/2024 16:55 CESAR MEJIA [place] [facility]
--- OUTSIDE RECORDS SUMMARY | 2024-11-12 09:49 | XMS_ITS | Encounter Summary ---
Author Name [facility] [place] Address [address] [place] [address] Care Team Providers Care Structural Engineer Name Role Phone RICK WILKINS Primary Care [...] Name Patient's Relationship to Policy Mosqueda TRACY [facility] FEDERAL PREFERRED PROVIDER ORGANIZAT ION (PPO) BASIC SELF+ ONE Nov 27, 2020 113 [id number] [phone] Anabell SUERO PATIENT BCBS MA FEP PREFERRED PROVIDER ORGANIZAT ION (PPO) BASIC SELF PLUS ONE Nov 27, 2020 113 [id number] Anabell SUERO R PATIENT [employer] FEPRX PLAN PRESCRIPT ION CAREM ARK FEPRX Nov 27, 2020 [id number] [phone] Anabell SUERO R PATIENT CAREMARK-F EP BCBS PRESCRIPT ION FEP CAREM ARK Nov 27, 2020 [id number] [phone] Anabell SUERO PATIENT Selected Encounter This section includes the information on record at [place] for the Encounter. Date/Time Encounter Type Encounter Description Reason Provider Source Jul 21, 2024 08:00 AM PSYTX W PT 45 MINUTES PCMHI INDIV ICD-10-CM F32.A Depression, unspecified ELVIE DYE IHE Encounter Template Text not used by [place] Assessments - Encounter Diagnoses This section includes the primary and secondary diagnoses documented for the Encounter. Date/Time Primary/Secondary Diagnosis Diagnosis Name Provider Source Jul 22, 2024 09:47 PM PRIMARY Depression, unspecified HARDIKELVIE Sarabia [place] [facility] [place] [facility] Jul 22, 2024 09:47 PM SECONDARY Anxiety disorder, unspecified HARDIKELVIE Sarabia [place] [facility] [place] [facility] Jul 22, 2024 09:47 PM SECONDARY Other chronic pain THEE DYEMARK Sarabia [facility] [place] [facility] Plan of Treatment: Future Appointments (+ 6 months) and Future Tests (+/- 45 days) The Plan of Treatment section includes future care activities for the patient from all [place] [facility]. This section includes future appointments and future orders which are active, pending or scheduled. Future Appointments This section includes appointments that were scheduled to occur 6 months from the date of the Encounter, up to a maximum of 20 appointments. The data comes from all [place] treatment facilities. Appointment Date/Time Appointment Type Appointme nt Facility Name Aug 11, 2024 03:30 PM AMBULATORY - MEDICINE [place] [facility] [place] [facility] Sep 21, 2024 10:00 AM AMBULATORY - MEDICINE [place] [facility] [place] [facility] Sep 21, 2024 10:01 AM AMBULATORY - MEDICINE [place] [facility] [place] [facility] Sep 22, 2024 11:00 AM AMBULATORY - PSYCHIATRY [place] [facility] [place] [facility] Oct 09, 2024 08:30 AM AMBULATORY - PSYCHIATRY [place] [facility] [place] [facility] Oct 26, 2024 10:00 AM AMBULATORY - NONE [place] [facility] [place] [facility] Nov 11, 2024 09:00 AM AMBULATORY - MEDICINE [facility] [place] [facility] Active, Pending, and Scheduled Orders This section includes a listing of several types of active, pending, and scheduled orders, including clinic medications orders, diagnostic test orders, procedure orders and consult orders; where the start date of the order is 45 days before the date of the Encounter or 45 days after the date of theEncounter. The data comes from all [place] treatment facilities. Test Date/Time Test Type Test Details Facility Name Jul 16, 2024 10:57 AM Consult Order COMMUNITY CARE-COLONOSCOPY DIAGNOSTIC Cons Mathematical Technician's Choice [facility] [employer] [facility] Lab Results: +/- 30 days of the encounter This section includes the Chemistry and Hematology Lab Results on record with [place] for the patient. Radiology Reports and Pathology Reports are provided separately, in subsequent sections. Lab Results This section contains the Chemistry/Hematology Results that were resulted 30 days before or 30 daysafter the date of the Encounter. Date/Time Source Result Type Result - Unit Interpretation Reference Range Comment Jul 11, 2024 05:30 AM [facility] [employer] [facility] OCCULT BLOOD FIT X1 SCREEN(IN-HOUSE) Specimen Type: FECES No comment entered. Ordering Provider: OCTAVIANO WILKINS Report Released Date/Time: Jul 02, 2024 03:02 PM Reporting Lab: [facility] [address] [address] Performing Lab: [facility] [address] [address] OCCULT BLOOD (FIT)#1 OF 1 POSITIVE HH NEG Social History: Smoking Status (Most current) and Tobacco Use (All prior to encounter date) This section includes the most current, and the historical, smoking and tobacco- related health factors from the [place] facility where the Encounter took place. Current Smoking Status This section includes the most current smoking, or tobacco-related health factor, from the [place] facility where the Encounter took place. Date/Time Current Smoking Status Comment Ava conde Jun 19, 2024 02:14 PM VA-TOBACCO NEVER USED [facility] [employer] [facility] Encounter Notes: All associated encounter notes This section contains the clinical notes associated to the Encounter. Date/Time Encounter Note(s) Provider Source Jul 21, 2024 05:25 AM MENTAL HEALTH E & M NOTE: LOCAL TITLE: PRIMARY MENTAL HEALTH ASSESSMENT NOTE STANDARD TITLE: MENTAL HEALTH E & M NOTE DATE OF NOTE: JUL 21, 2024@05:25 ENTRY DATE: JUL 21, 2024@05:26:05 AUTHOR: IMAN DYE COSIGNER: URGENCY: STATUS: COMPLETED PC-M[facility] HEALTH ASSESSMENT NOTE DURATION: 50 mins REFERRING PROVIDER: PCPTam REASON FOR REFERRAL: anxiety and depression Informed consent and limits of confidentiality were provided. is a 53 year-old, , white with a PMH of depression, anxiety, sleep apnea and chronic pain. [place] was identified by two means, full name and date of . CHIEF COMPLAINT: explored how he has endured many traumatic events during service and endorsed trauma-related anxiety and depressive symptoms that originated years ago during service. Results on screeners were reviewed. He described life threatening situations he endured while stationed in [place] and also experienced friends he served with dying tragically by MVA and suicide. He endorsed re-occurring traumatic memories, hypervigilance, avoidance and extreme beliefs. Moreover, he shared that his [id number] (VALERIE) is his boss and that he kept a secret relating to VALERIE for many years. He reported that this has caused strain at work, at home and in family relationships. He identified habits of anger and challenges trusting people. He also identified rigid thinking and finding mistakes intolerable. He denied any previous MH treatment. Trauma-related anxiety symptoms will be further evaluated. Moreover, [place] endorsed significant sleep disturbances, waking up many times at night, and denied any prior sleep testing. He agreed to continuity writer asking PCP to consider a sleep study consult. Additionally, [place] disclosed frequent headaches, 3-4x a month on average since head injuries and may have endured LOC, and agreed to continuity writer asking PCP to consider a TBI clinic referral. 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 o COPING: fishing, boat, woodworking- o PAIN/CHRONIC HEALTH CONDITIONS: pain in feet, legs, back, shoulders, headaches o CULTURE: religion- would like a drugless physician present whenever he reaches end of life challenges INTERVENTION: Gathered psychosocial history and functioning Provided psychoeducation on downward spiral of depression and stress response- handouts provided Provided psychoeducation on stress response and impact of avoidance- handouts provided Conducted SI/HI risk assessment Provided information on [facility] LETHALITY: Suicidal or homicidal ideation: No Suicidal or homicidal plans: No Suicidal or homicidal intention: No Previous suicide attempts: No RISK LEVEL IMPRESSION: presents at low chronic and acute risk of harm to self and others at this time SCREENERS: PHQ-9: 18, moderately severe depression, somewhat difficult KIRILL-7: 18, severe anxiety, somewhat difficult DIAGNOSES: Depressive Disorder, Unspecified, Anxiety Disorder, Unspecified; Chronic Pain IMPRESSIONS/PLAN: sarah Suero endorsed sleep disturbances, chronic pain, trauma-related anxiety and depression that originated during service. [place] has also endured several head injuries and endorsed frequent headaches and continuity writer contacted PCP to request sleep study and TBI consults. [place] denied SI/HI and denied any prior treatment. In collaboration with [place] considering evidence-based treatment, clinical judgment and patient preference, options of treatment were offered. [place] agreed to return for further assessment of trauma-related anxiety, as well as brief CBT treatment for depression and anxiety including cognitive restructuring, behavioral activation and relaxation training. Moreover, he will explore habits of avoidance. He will return to [facility] for roughly 4-6, individual sessions. He will return to [facility], 08/05 at 10am. INTERDICIPLINARY TREATMENT PLANNING INVOLVING: Referring provider will be alerted of this plan ACTIVE PROBLEMS LIST Active problems - Computerized Problem List is the source for the followin. Hearing loss 2. Sleep apnea 3. Glenoid labrum tear 4. Joint pain 5. Obesity 6. Eczema 7. Hypertriglyceridemia 8. Chronic neck pain 9. Impaired fasting glycemia 10. Kidney stone ALL ACTIVE MEDICATIONS Active Outpatient Medications (including Supplies): No Medications Found Suicide Screen: C-SSRS Screening [place]-Suicide Severity Rating Scale (C-SSRS Screener) 1. Over the past month, have you [...] required due to responses to other questions. /mony/ IMAN DYE, PhD STAFF PSYCHOLOGIST Signed: 07/23/2024 07:48 Receipt Acknowledged By: 07/23/2024 08:54 /mony/ Rick Wilkins PA-C STAFF PHYSICIAN PAYROLL ACCOUNTING SPECIALIST IMAN DYE [facility]
--- OUTSIDE RECORDS SUMMARY | 2024-11-12 09:49 | XMS_ITS | Encounter Summary ---
Author Name [facility] [place] Address [address] [place] [address] Care Team Providers Care Blacksmith Assistant Name Role Phone TOM WILKINS Primary Care Provider Unavail able Insurance [...] Name Patient's Relationship to Policy Mosqueda TRACY [facility] CT FEDERAL PREFERRED PROVIDER ORGANIZAT ION (PPO) BASIC SELF+ ONE Nov 27, 2020 [id number] [phone] Anabell SUERO PATIENT BCBS MA FEP PREFERRED PROVIDER ORGANIZAT ION (PPO) BASIC SELF PLUS ONE Nov 27, 2020 113 [id number] [phone] Anabell SUERO R PATIENT [employer] FEPRX PLAN PRESCRIPT ION CAREM ARK FEPRX Nov 27, 2020 [id number] Anabell SUERO R PATIENT CAREMARK-F EP BCBS PRESCRIPT ION FEP CAREM ARK Nov 27, 2020 [id number] Anabell SUERO PATIENT Selected Encounter This section includes the information on record at [place] for the Encounter. Date/Time Encounter Type Encounter Description Reason Provider Source Aug 11, 2024 03:30 PM OFFICE O/P EST LOW 20 MIN PRIMARY CARE/MEDICINE ICD-10-CM M54.2 Cervicalgia VANWAGNER,WILL JOEL F IHE Encounter Template Text not used by [place] Assessments - Encounter Diagnoses This section includes the primary and secondary diagnoses documented for the Encounter. Date/Time Primary/Secondary Diagnosis Diagnosis Name Provider Source Aug 23, 2024 01:21 PM PRIMARY Cervicalgia VANWAGNER,WILL JOEL F [place] [facility] [place] [facility] Aug 23, 2024 01:21 PM SECONDARY Contact with and exposure to other hazardous substances VANWAGNER,WILL JOEL F [place] [facility] [place] [facility] Aug 23, 2024 01:21 PM SECONDARY Other chronic pain VANWAGNER,WILL JOEL F [place] [facility] [place] [facility] Aug 23, 2024 01:21 PM SECONDARY Sleep apnea, unspecified VANWAGNER,WILL JOEL F [place] [facility] [place] [facility] Plan of Treatment: Future Appointments (+ 6 months) and Future Tests (+/- 45 days) The Plan of Treatment section includes future care activities for the patient from all [place] [facility]. This section includes future appointments and future orders which are active, pending or scheduled. Future Appointments This section includes appointments that were scheduled to occur 6 months from the date of the Encounter, up to a maximum of 20 appointments. The data comes from all [place] treatment facilities. Appointment Date/Time Appointment Type Appointme nt Facility Name Sep 21, 2024 10:00 AM AMBULATORY - MEDICINE [place] [facility] [place] [facility] Sep 21, 2024 10:01 AM AMBULATORY - MEDICINE [place] [facility] [place] [facility] Sep 22, 2024 11:00 AM AMBULATORY - PSYCHIATRY [place] [facility] [place] [facility] Oct 09, 2024 08:30 AM AMBULATORY - PSYCHIATRY [place] [facility] [place] [facility] Oct 26, 2024 10:00 AM AMBULATORY - NONE [place] [facility] [place] [facility] Nov 11, 2024 09:00 AM AMBULATORY - MEDICINE [place] [facility] [place] [facility] Active, Pending, and Scheduled Orders This section includes a listing of several types of active, pending, and scheduled orders, including clinic medications orders, diagnostic test orders, procedure orders and consult orders; where the start date of the order is 45 days before the date of the Encounter or 45 days after the date of theEncounter. The data comes from all [place] treatment facilities. Test Date/Time Test Type Test Details Facility Name Jul 16, 2024 10:57 AM Consult Order COMMUNITY CARE-COLONOSCOPY DIAGNOSTIC Cons Fitness Specialist's Choice [place] [facility] AdypeROOSEVELT GENERAL HOSPITALImpakt Protective [facility] Vital Signs: All taken on the encounter date This section contains inpatient and outpatient Vital Signs collected on the date of the Encounter. Date/Time Temperature Pulse Blood Pressure Respiratory Rate SP02 Pain Height Weight Body Mass Index Source Aug 11, 2024 03:35 PM 98.1 76 130/74 16 98 4 162 25 [facility] [employer]REPLACED BY [facility] Social History: Smoking Status (Most current) and Tobacco Use (All prior to encounter date) This section includes the most current, and the historical, smoking and tobacco- related health factors from the [place] facility where the Encounter took place. Current Smoking Status This section includes the most current smoking, or tobacco-related health factor, from the [place] facility where the Encounter took place. Date/Time Current Smoking Status Comment Facil ity Jun 19, 2024 02:14 PM VA-TOBACCO NEVER USED [place] [facility] [employer] Encounter Notes: All associated encounter notes This section contains the clinical notes associated to the Encounter. Date/Time Encounter Note(s) Provider Source Aug 11, 2024 03:59 PM PHYSICIAN DESK MANAGER NOTE: LOCAL TITLE: SHAILESH NOTE STANDARD TITLE: PHYSICIAN DESK MANAGER NOTE DATE OF NOTE: AUG 11, 2024@15:59 ENTRY DATE: AUG 11, 2024@15:59:48 AUTHOR: TOM WILKINS EXP COSIGNER: URGENCY: STATUS: COMPLETED CC/HPI/A/P: 53 year old MALE here in follow-up for; f/u after our intial was aborted recently to enable a warm handoff to [facility] for depression. He is still in touch with DR Goldstein. Headache '4-5 times a month' Denies sinus ds nor surgeries 'but a DR Told me years ago that I had allergies and gave me a spray that did nothing . Valsalva manuever NOT intact on left. Sinuses are nontender. we discuss maximizing med therapy, declines for now, may buy otc. psh; Right biceps tendon repair 2011 Right shoulder labrum repair April 2023. 3 times US lithotripsy for kidney stone last year, the year before and about 2006. FH: No hx of prostate, breast nor colon cancer. SH: At [facility]. House, . Family. vision care: Last exam:about two years Dental care: Last exam:...Hygiene discussed. Low cost local alternatives for dental care discussed. Hearing:Conservation discussed. PCP Kirill. Review of systems: Patient reports no changes from Usual State Of Health/[place], in meds or any admissions. Active problems - Computerized Problem List is the source for the followin. Hearing loss Bilateral,discussed at length, declines hearing aids for now 2. Sleep apnea, HST Pending 3. Glenoid labrum tear 4. Joint pain Pain of right knee joint 5. Obesity 6. Eczema Eczema- elbows, back of hands 7. Hypertriglyceridemia, he reports that recent labs for DR Roy were very good. 8. Chronic neck pain 9. Impaired fasting glycemia 10. Kidney stone, no recent. SERVICE CONNECTED % - NONE FOUND VA and Non VA meds were reconciled with the patient who left with a corrected copy. See medication page for details. Active and Recently Outpatient Medications (excluding Supplies): No Medications Found 98.1 F [36.7 C] (08/11/2024 15:35) 76 (08/11/2024 15:35) 16 (08/11/2024 15:35) 130/74 (08/11/2024 15:35) 4 (08/11/2024 15:35) 67 in [170.2 cm] (07/02/2024 14:52) 162 lb [73.48 kg] (08/11/2024 15:35) BMI: 25.4 Neuro: Alert and oriented times three, grossly nonfocal, nasolabial folds intact. Recent labs reviewed with patient today:none, declines. 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 The has already been diagnosed as having TBI during post 08/05 deployment. Screening not required due to TBI diagnosis. A consult for known TBI was entered. Toxic Exposure Screening: The /caregiver was asked if they believe the [place] experienced any toxic exposure(s), such as Airborne Hazards and Open Burn [place], [place] related exposures, Agent [place], Radiation, contaminated water at [place] or other such exposures, while serving in the Armed Forces. [place]/caregiver believes the was exposed to the following while serving in the Armed Forces: [place] related exposures: /caregiver was made aware of educational resources that includes information on the Registry Program, presumptive conditions and how to file a claim. Printed information was offered and provided if desired. [place]/caregiver has health or medical concerns related to their concern of environmental exposure. Concern: headaches Benefits/Claims Questions /caregiver was informed of local point of contact. Contact information for local resources: Benefits/Claim for Disability Compensation Questions:National VBA [place] Healthcare Enrollment: [facility] Eligibility direct dialed at [phone] Registry: [facility] Coordinator ext [phone] The following connections were provided to the /caregiver: Consult/Referral to Toxic Exposure Screening (TANIA) navigator. Please address RTC and fix phones (eliminate his home phone and replace with cell #) /mony/ Tom Wilkins PA-C STAFF PHYSICIAN DESK MANAGER Signed: 08/11/2024 17:06 Receipt Acknowledged By: 08/12/2024 08:05 /mony/ TOM TRUJILLO [place] [facility]
--- OUTSIDE RECORDS SUMMARY | 2024-11-12 09:49 | XMS_ITS | Encounter Summary ---
Author Name [facility] [place] Address [address] [place] [id number] Care Team Providers Care Research And Evaluation Manager Name Role Phone RICK WILKINS Primary Care [...] Name Patient's Relationship to Policy Mosqueda [facility]Y [facility] FEDERAL PREFERRED PROVIDER ORGANIZAT ION (PPO) BASIC SELF+ ONE Nov 27, 2020 [id number] Anabell SUERO R PATIENT BCBS MA FEP PREFERRED PROVIDER ORGANIZAT ION (PPO) BASIC SELF PLUS ONE Nov 27, 2020 113 [id number] Anabell SUERO R PATIENT CAREMARK FEPRX PLAN PRESCRIPT ION CAREM ARK FEPRX Nov 27, 2020 [id number] [phone] Anabell SUERO R PATIENT CAREMARK-F EP BCBS PRESCRIPT ION FEP CAREM ARK Nov 27, 2020 [id number] AUCLAIR,C HRISTOPHE R PATIENT Selected Encounter This section includes the information on record at [place] for the Encounter. Date/Time Encounter Type Encounter Description Reason Provider Source Jul 09, 2024 07:29 AM Outpatient Encounter PRIMARY CARE/MEDICINE CESAR LOPEZ Mayi Encounter Template Text not used by [place] Plan of Treatment: Future Appointments (+ 6 months) and Future Tests (+/- 45 days) The Plan of Treatment section includes future care activities for the patient from [facility] [place] [facility] This section includes future appointments and future orders which are active, pending or scheduled. Future Appointments This section includes appointments that were scheduled to occur 6 months from the date of the Encounter, up to a maximum of 20 appointments. The data comes from all [facility]. Appointment Date/Time Appointment Type Appointme nt Facility Name Jul 17, 2024 02:30 PM AMBULATORY [place]INE [place] [facility] [place] [place] [facility] Jul 21, 2024 08:00 AM AMBULATORY - PS[place]CHIATRY [place] [facility] [place] [facility] Aug 11, 2024 03:30 PM AMBULATORY - MEDICINE [place] [facility] Sep 21, 2024 10:00 AM AMBULATORY - MEDICINE [facility] [place] [facility] Sep 21, 2024 10:01 AM AMBULATORY - MEDICINE [place] [facility] [place] [facility] Sep 22, 2024 11:00 AM AMBULATORY - PS[place]CHIATRY [place] [facility] [place] [facility] Oct 09, 2024 08:30 AM AMBULATORY - PSYCHIATRY [place] [facility] [place] [facility] Oct 26, 2024 10:00 AM AMBULATORY - NONE [place] [facility] [place] [facility] Nov 11, 2024 09:00 AM AMBULATORY - MEDICINE [facility] [place] [facility] Active, Pending, and Scheduled Orders This section includes a listing of several types of active, pending, and scheduled orders, including clinic medications orders, diagnostic test orders, procedure orders and consult orders; where the start date of the order is 45 days before the date of the Encounter or 45 days after the date of theEncounter. The data comes from all [facility]. Test Date/Time Test Type Test Details Facility Name Jul 16, 2024 10:57 AM Consult Order COMMUNITY CARE-COLONOSCOPY DIAGNOSTIC Cons Laundry Laborer's Choice [facility] [place] [facility] Lab Results: +/- 30 days of the encounter This section includes the Chemistry and Hematology Lab Results on record with [place] for the patient. Radiology Reports and Pathology Reports are provided separately, in subsequent sections. Lab Results This section contains the Chemistry/Hematology Results that were resulted 30 days before or 30 daysafter the date of the Encounter. Date/Time Source Result Type Result - Unit Interpretation Reference Range Comment Jul 11, 2024 05:30 AM [facility] OCCULT BLOOD FIT X1 SCREEN(IN-HOUSE) Specimen Type: FECES No comment entered. Ordering Provider: OCTAVIANO WILKINS F Report Released Date/Time: Jul 02, 2024 03:02 PM Reporting Lab: [facility] [address] [facility] [address] Performing Lab: [address] [address] OCCULT BLOOD (FIT)#1 OF 1 POSITIVE HH NEG Social History: Smoking Status (Most current) and Tobacco Use (All prior to encounter date) This section includes the most current, and the historical, smoking and tobacco- related health factors from the [place] facility where the Encounter took place. Current Smoking Status This section includes the most current smoking, or tobacco-related health factor, from the [place] facility where the Encounter took place. Date/Time Current Smoking Status Comment Ava conde Jun 19, 2024 02:14 PM VA-TOBACCO NEVER USED [facility] Encounter Notes: All associated encounter notes This section contains the clinical notes associated to the Encounter. Date/Time Encounter Note(s) Provider Source Jul 09, 2024 07:29 AM PRIMARY CARE [employer] MESSAGING: LOCAL TITLE: PRIMARY CARE SECURE MESSAGING STANDARD TITLE: PRIMARY CARE SECURE MESSAGING DATE OF NOTE: JUL 09, 2024@07:29 ENTRY DATE: JUL 09, 2024@08:29:33 AUTHOR: CESAR LOPEZIGNER: URGENCY: STATUS: COMPLETED ------Original Message ------- Sent: 07/07/2024 06:12 AM ET From: GEORGE SUERO To: Juan WILKINS_PRIMARY CARE_[facility] Subject: General:myhealthevet Dr. VanWagner, I have created my account and messaging as you requested. However, the website on your [employer] card no longer works. Registration/access is now through the [place] Benefits website. Also, when i spoke with Stevan a few weeks ago we discussed sleep issues. I informed him my PCP referred me to a place in [place]. They have set me up for an appointment in October. He thought the [place] might be able to set me up with someone else sooner. Is that a possibility? Thank you ------Original Message ------- Sent: 07/07/2024 08:44 AM ET From: CESAR LOPEZ To: GEORGE SUERO Subject: General:xu Good Morning, We do have some resources or consults that could help you but first can you describe the sleep issues you are referring to? I see that you have been diagnosed with sleep apnea, do you use a CPAP? When did you last have a sleep test? What is your appointment in October for and with who? Thank you for your service, HERBERTH Yu - PACT Bioinformatics Engineer ------Original Message ------- Sent: 07/07/2024 06:02 PM ET From: GEORGE SUERO To: Juan WILKINS_PRIMARY CARE_[facility] Subject: General:xu I do not believe I have a confirmed diagnosis and I do not uae a CPAP. My appointment in October is for a sleep study consultation with [facility] in [place]. ------Original Message ------- Sent: 07/08/2024 08:28 AM ET From: CESAR LOPEZ To: GEORGE SUERO Subject: General:xu Would you like us to enter a referral for a home sleep test from out respiratory team here? Thank you for your service, HERBERTH Yu - PACT Bioinformatics Engineer ------Original Message ------- Sent: 07/08/2024 05:39 PM ET From: GEORGE SUERO To: Juan WILKINS_PRIMARY CARE_[facility] Subject: General:myhealthevet I would be interested if it could happen before the October appt. I already have. /es/ CESAR LOPEZ RN REGISTERED NURSE Signed: 07/09/2024 08:29 Receipt Acknowledged By: 07/21/2024 16:54 /mony/ Rick Wilkins PA-C STAFF PHYSICIAN CASINO ATTENDANT CESAR LOPEZ [facility]
--- OUTSIDE RECORDS SUMMARY | 2024-11-12 09:49 | XMS_ITS | Encounter Summary ---
Author Name [facility] [place] Address [address] [place] [address] Care Team Providers Care Transfer Engineer Name Role Phone TOM WILKINS Primary Care [...] Name Patient's Relationship to Policy Mosqueda [facility]Y [facility] CT FEDERAL PREFERRED PROVIDER ORGANIZAT ION (PPO) BASIC SELF+ ONE Nov 27, 2020 113 [id number] [phone] Anabell SUERO PATIENT BCBS MA FEP PREFERRED PROVIDER ORGANIZAT ION (PPO) BASIC SELF PLUS ONE Nov 27, 2020 113 [id number] [phone] Anabell SUERO R PATIENT [employer] FEPRX PLAN PRESCRIPT ION CAREM ARK FEPRX Nov 27, 2020 [id number] Anabell SUERO R PATIENT [employer]ARK-F EP BCBS PRESCRIPT ION FEP CAREM ARK Nov 27, 2020 [id number] [phone] Anabell SUERO PATIENT Selected Encounter This section includes the information on record at [place] for the Encounter. Date/Time Encounter Type Encounter Description Reason Provider Source Jul 02, 2024 03:30 PM PSYTX W PT 30 MINUTES PCMHI INDIV ICD-10-CM F43.9 Reaction to severe stress, unspecified ELVIE DYE IHE Encounter Template Text not used by [place] Assessments - Encounter Diagnoses This section includes the primary and secondary diagnoses documented for the Encounter. Date/Time Primary/Secondary Diagnosis Diagnosis Name Provider Source Jul 03, 2024 09:38 PM PRIMARY Reaction to severe stress, unspecified ELVIE DYE R [place] [facility] [place] [facility] Jul 03, 2024 09:38 PM SECONDARY Depression, unspecified ELVIE DYE R [place] [facility] [place] [place] [facility] Plan of Treatment: Future Appointments (+ 6 months) and Future Tests (+/- 45 days) The Plan of Treatment section includes future care activities for the patient from all [place] treatmentfacilities. This section includes future appointments and future orders which are active, pending or scheduled. Future Appointments This section includes appointments that were scheduled to occur 6 months from the date of the Encounter, up to a maximum of 20 appointments. The data comes from all [place] treatment facilities. Appointment Date/Time Appointment Type Appointme nt Facility Name Jul 17, 2024 02:30 PM AMBULATORY - MEDICINE [place] [facility] [place] [facility] Jul 21, 2024 08:00 AM AMBULATORY - PSYCHIATRY [place] [facility] [place] [place] [facility] Aug 11, 2024 03:30 PM AMBULATORY - MEDICINE [place] [facility] [place] [place] [facility] Sep 21, 2024 10:00 AM AMBULATORY - MEDICINE [place] [facility] [place] [facility] Sep 21, 2024 10:01 AM AMBULATORY - MEDICINE [place] [facility] [place] [facility] Sep 22, 2024 11:00 AM AMBULATORY - PSYCHIATRY [place] [facility] [place] [place] [facility] Oct 09, 2024 08:30 AM AMBULATORY - PSYCHIATRY [place] [facility] [place] [facility] Oct 26, 2024 10:00 AM AMBULATORY - NONE [place] [facility] [place] [facility] Nov 11, 2024 09:00 AM AMBULATORY - MEDICINE [place] [facility] [place] [facility] Active, Pending, and Scheduled Orders This section includes a listing of several types of active, pending, and scheduled orders, including clinic medications orders, diagnostic test orders, procedure orders and consult orders; where the start date of the order is 45 days before the date of the Encounter or 45 days after the date of theEncounter. The data comes from all [place] treatment facilities. Test Date/Time Test Type Test Details Facility Name Jul 16, 2024 10:57 AM Consult Order COMMUNITY CARE-COLONOSCOPY DIAGNOSTIC Cons Surgical Supervisor's Choice [place] [employer], [facility] Lab Results: +/- 30 days of the encounter This section includes the Chemistry and Hematology Lab Results on record with [place] for the patient. Radiology Reports and Pathology Reports are provided separately, in subsequent sections. Lab Results This section contains the Chemistry/Hematology Results that were resulted 30 days before or 30 daysafter the date of the Encounter. Date/Time Source Result Type Result - Unit Interpretation Reference Range Comment Jul 11, 2024 05:30 AM [place] [facility] [employer] [facility] OCCULT BLOOD FIT X1 SCREEN(IN-HOUSE) Specimen Type: FECES No comment entered. Ordering Provider: OCTAVIANO WILKINS Report Released Date/Time: Jul 02, 2024 03:02 PM Reporting Lab: [facility] [address] [address] [address] Performing Lab: [address] [address] OCCULT BLOOD (FIT)#1 OF 1 POSITIVE HH NEG Vital Signs: All taken on the encounter date This section contains inpatient and outpatient Vital Signs collected on the date of the Encounter. Date/Time Temperature Pulse Blood Pressure Respiratory Rate SP02 Pain Height Weight Body Mass Index Source Jul 02, 2024 02:52 PM 97.9 76 112/74 16 97 0 67 160 25 [facility] Social History: Smoking Status (Most current) and Tobacco Use (All prior to encounter date) This section includes the most current, and the historical, smoking and tobacco- related health factors from the [place] facility where the Encounter took place. Current Smoking Status This section includes the most current smoking, or tobacco-related health factor, from the [place] facility where the Encounter took place. Date/Time Current Smoking Status Comment Ava conde Jun 19, 2024 02:14 PM VA-TOBACCO NEVER USED [facility] [place] [facility] Encounter Notes: All associated encounter notes This section contains the clinical notes associated to the Encounter. Date/Time Encounter Note(s) Provider Source Jul 02, 2024 03:38 PM MENTAL HEALTH OUTPATIENT NOTE: LOCAL TITLE: PRIMARY MENTAL HEALTH OUTPATIENT FOLLOW UP NOTE STANDARD TITLE: MENTAL HEALTH OUTPATIENT NOTE DATE OF NOTE: JUL 02, 2024@15:38 ENTRY DATE: JUL 02, 2024@15:38:29 AUTHOR: IMAN DYE COSIGNER: URGENCY: STATUS: COMPLETED PC-MHI WARM HAND OFF NOTE DURATION: 16 mins REFERRING PROVIDER: TONI Wilkins REASON FOR REFERRAL: Depression Informed consent and limits of confidentiality were provided. Gaffney is a 53 year-old with a PMH of depression, anxiety, sleep apnea and chronic pain. was identified by two means, full name and date of . CHIEF COMPLAINT: Precision Agronomist introduced herself and PCMHI. Gaffney confirmed interest in PCMHI. Gaffney shared that he has been working in or [place] years. He endorsed many traumatic experiences during long career and endorsed symptoms of depression and trauma-related anxiety. He also experienced MST. He denied SI/HI. He explored how he has never met with MH provider and was often encouraged to not reveal trauma or MH challenges when in the , so he often minimized symptoms and experiences. He said that he was encouraged to connect with [facility] providers to ignite MH treatment and care. He said that this is a new process for him. He identified habits of avoidance. He explored how he cares for others but is often uncomfortable receiving help. Additionally, he shared that he has kept work separate from home, and does not discuss work trauma and challenges with his . However, he said that his has noted that he has changed dramatically since service and presumes he experiences MH challenges. It was explored how he has served 34 years and how transitioning out of the will spur a process of grief and loss in many ways. denied SI/HI or MH safety concerns and confirmed having access to [place] crisis hotline if symptoms were to worsen or change. Further assessment, shared decision making, and functional assessment will be completed at next health assessment appt. INTERVENTION: Provided psychoeducation on PCMHI services Conducted brief SI/HI assessment- declined SI/HI symptoms or crisis concerns DIAGNOSES: Trauma and Stressor Related Disorder, Unspecified; Depressive Disorder, Unspecified IMPRESSIONS/PLAN: endorsed traumatic experiences that occurred during service, and related anxiety and depression that will be further evaluated. Gaffney denied SI/HI or safety concerns. In addition, he was informed of how to access [place] crisis hotline and [facility] services if he were to experience elevated symptoms and was provided with web content writer's direct contact information. will return to [facility] for roughly 3-5, individual sessions. Gaffney will return to [facility] for full initial health assessment appointment 07/21 at 8am. /mony/ IMAN DYE, PhD STAFF PSYCHOLOGIST Signed: 07/03/2024 21:40 Receipt Acknowledged By: 07/04/2024 08:40 /mony/ Tom Wilkins PA-C STAFF PHYSICIAN BOBBIN DUMPER IMAN DYE [place] [facility]
--- OUTSIDE RECORDS SUMMARY | 2024-11-12 09:49 | XMS_ITS | Encounter Summary ---
Author Name [facility] [place] Address [address] [place] [id number] Care Team Providers Care Cow Rider Name Role Phone RICK LILLY Primary Care [...] Name Patient's Relationship to Policy Mosqueda [facility] FEDERAL PREFERRED PROVIDER ORGANIZAT ION (PPO) BASIC SELF+ ONE Nov 27, 2020 113 [id number] Anabell SUERO R PATIENT BCBS MA FEP PREFERRED PROVIDER ORGANIZAT ION (PPO) BASIC SELF PLUS ONE Nov 27, 2020 [id number] Anabell SUERO R PATIENT [employer] FEPRX PLAN PRESCRIPT ION CAREM ARK FEPRX Nov 27, 2020 [id number] Anabell SUERO R PATIENT CAREMARK-F EP BCBS PRESCRIPT ION FEP CAREM ARK Nov 27, 2020 [id number] AUCLAIR,C HRISTOPHE R PATIENT Selected Encounter This section includes the information on record at [place] for the Encounter. Date/Time Encounter Type Encounter Description Reason Pro vider Source Aug 05, 2024 08:07 AM Outpatient Encounter PCMHI INDIV IHE Encounter Template Text not used by [place] Plan of Treatment: Future Appointments (+ 6 months) and Future Tests (+/- 45 days) The Plan of Treatment section includes future care activities for the patient from all [place] [facility]. This section includes future appointments and future orders which are active, pending or scheduled. Future Appointments This section includes appointments that were scheduled to occur 6 months from the date of the Encounter, up to a maximum of 20 appointments. The data comes from all [facility]. Appointment Date/Time Appointment Type Appointme nt Facility Name Aug 11, 2024 03:30 PM AMBULATORY - MEDICINE [place] [facility] [place] [facility] Sep 21, 2024 10:00 AM AMBULATORY - MEDICINE [place] [facility] [place] [facility] Sep 21, 2024 10:01 AM AMBULATORY - MEDICINE [place] [facility] [place] [facility] Sep 22, 2024 11:00 AM AMBULATORY - PSYCHIATRY [place] [facility] [facility] Oct 09, 2024 08:30 AM AMBULATORY - PSYCHIATRY [place] [facility] [facility] Oct 26, 2024 10:00 AM AMBULATORY - NONE [place] [facility] [facility] Nov 11, 2024 09:00 AM AMBULATORY - MEDICINE [facility] [place] [facility] Active, Pending, and Scheduled Orders This section includes a listing of several types of active, pending, and scheduled orders, including clinic medications orders, diagnostic test orders, procedure orders and consult orders; where the start date of the order is 45 days before the date of the Encounter or 45 days after the date of theEncounter. The data comes from all [facility]. Test Date/Time Test Type Test Details Facility Name Jul 16, 2024 10:57 AM Consult Order COMMUNITY CARE-COLONOSCOPY DIAGNOSTIC Cons Line Installer Trolley's Choice [facility] [place] [facility] Lab Results: +/- 30 days of the encounter This section includes the Chemistry and Hematology Lab Results on record with [place] for the patient. Radiology Reports and Pathology Reports are provided separately, in subsequent sections. Lab Results This section contains the Chemistry/Hematology Results that were resulted 30 days before or 30 daysafter the date of the Encounter. Date/Time Source Result Type Result - Unit Interpretation Reference Range Comment Jul 11, 2024 05:30 AM [facility] OCCULT BLOOD FIT X1 SCREEN(IN-HOUSE) Specimen Type: FECES No comment entered. Ordering Provider: OCTAVIANO LILLY Report Released Date/Time: Jul 02, 2024 03:02 PM Reporting Lab: [facility] [address] [facility] [address] Performing Lab: [facility] [address] [facility] [address] OCCULT BLOOD (FIT)#1 OF 1 POSITIVE HH NEG Social History: Smoking Status (Most current) and Tobacco Use (All prior to encounter date) This section includes the most current, and the historical, smoking and tobacco- related health factors from the [place] facility where the Encounter took place. Current Smoking Status This section includes the most current smoking, or tobacco-related health factor, from the [place] facility where the Encounter took place. Date/Time Current Smoking Status Comment Ava conde Jun 19, 2024 02:14 PM VA-TOBACCO NEVER USED [facility] Encounter Notes: All associated encounter notes This section contains the clinical notes associated to the Encounter. Date/Time Encounter Note(s) Provider Source Aug 05, 2024 08:07 AM ADMINISTRATIVE NOTE: LOCAL TITLE: ADMINISTRATIVE NOTE STANDARD TITLE: ADMINISTRATIVE NOTE DATE OF NOTE: AUG 05, 2024@08:07 ENTRY DATE: AUG 05, 2024@08:07:52 AUTHOR: MALINA SMITH EXP COSIGNER: URGENCY: STATUS: COMPLETED OCTAVIA spoke with patient regarding cancelation of appointment today 08/05/[address] Goldstein and the provider will reach back out to [facility]. [place] thanked senior technical writer for the call. /mony/ MALINA DUDLEY Signed: 08/05/2024 08:09 MALINA SMITH [facility]
--- OUTSIDE RECORDS SUMMARY | 2024-11-12 09:49 | XMS_ITS | Encounter Summary ---
Author Name [facility] [place] Address [address] [place] [address] Care Team Providers Care Hose Handler Name Role Phone RICK LILLY Primary Care [...] Name Patient's Relationship to Policy Mosqueda TRACY [facility] FEDERAL PREFERRED PROVIDER ORGANIZAT ION (PPO) BASIC SELF+ ONE Nov 27, 2020 113 [id number] Anabell SUERO R PATIENT BCBS [place] FEP PREFERRED PROVIDER ORGANIZAT ION (PPO) BASIC SELF PLUS ONE Nov 27, 2020 113 [id number] Anabell SUERO R PATIENT CAREMARK FEPRX PLAN PRESCRIPT ION CAREM ARK FEPRX Nov 27, 2020 [id number] Anabell SUERO R PATIENT CAREMARK-F EP BCBS PRESCRIPT ION FEP CAREM ARK Nov 27, 2020 [id number] AUCLAIR,C HRISTOPHE R PATIENT Selected Encounter This section includes the information on record at CT for the Encounter. Date/Time Encounter Type Encounter Description Reason Pro vider Source Jul 02, 2024 12:00 AM Outpatient Encounter EVENT (HISTORICAL) IHE Encounter Template Text not used by CT Plan of Treatment: Future Appointments (+ 6 months) and Future Tests (+/- 45 days) The Plan of Treatment section includes future care activities for the patient [facility] This section includes future appointments and future orders which are active, pending or scheduled. Future Appointments This section includes appointments that were scheduled to occur 6 months from the date of the Encounter, up to a maximum of 20 appointments. The data comes from all CT treatment [facility]. Appointment Date/Time Appointment Type Appointme nt Facility Name Jul 17, 2024 02:30 PM AMBULATORY - MEDICINE CT [place] [facility] Jul 21, 2024 08:00 AM AMBULATORY - PSYCHIATRY CT [facility] [place] [facility] Aug 11, 2024 03:30 PM AMBULATORY - MEDICINE CT C [place] [place] [facility] Sep 21, 2024 10:00 AM AMBULATORY - MEDICINE CT C [place] [place] [facility] Sep 21, 2024 10:01 AM AMBULATORY - MEDICINE CT C [place] [place] [facility] Sep 22, 2024 11:00 AM AMBULATORY - PSYCHIATRY CT [facility] [place] [facility] Oct 09, 2024 08:30 AM AMBULATORY - PSYCHIATRY CT [facility] [place] [facility] Oct 26, 2024 10:00 AM AMBULATORY - NONE [place] [facility] [place] [facility] Nov 11, 2024 09:00 AM AMBULATORY - MEDICINE CT C [place] [place] [facility] Active, Pending, and Scheduled Orders This section includes a listing of several types of active, pending, and scheduled orders, including clinic medications orders, diagnostic test orders, procedure orders and consult orders; where the start date of the order is 45 days before the date of the Encounter or 45 days after the date of theEncounter. The data comes from all [facility]. Test Date/Time Test Type Test Details Facility Name Jul 16, 2024 10:57 AM Consult Order COMMUNITY CARE-COLONOSCOPY DIAGNOSTIC Cons Branch Operations Coordinator[facility] [place] [facility] Lab Results: +/- 30 days of the encounter This section includes the Chemistry and Hematology Lab Results on record with CT for the patient. Radiology Reports and Pathology Reports are provided separately, in subsequent sections. Lab Results This section contains the Chemistry/Hematology Results that were resulted 30 days before or 30 daysafter the date of the Encounter. Date/Time Source Result Type Result - Unit Interpretation Reference Range Comment Jul 11, 2024 05:[address] M[employer]im[employer]R Re-APPN [employer] [facility] OCCULT BLOOD FIT X1 SCREEN(IN-HOUSE) Specimen Type: FECES No comment entered. Ordering Provider: OCTAVIANO LILLY Report Released Date/Time: Jul 02, 2024 03:02 PM Reporting Lab: [facility] [address] [facility] [address] Performing Lab: [address] [address] OCCULT BLOOD (FIT)#1 OF 1 POSITIVE HH NEG Vital Signs: All taken on the encounter date This section contains inpatient and outpatient Vital Signs collected on the date of the Encounter. Date/Time Temperature Pulse Blood Pressure Respiratory Rate SP02 Pain Height Weight Body Mass Index Source Jul 02, 2024 02:52 PM 97.9 76 112/74 16 97 0 67 160 25 [facility] [employer] [facility] Social History: Smoking Status (Most current) and Tobacco Use (All prior to encounter date) This section includes the most current, and the historical, smoking and tobacco- related health factors from the [place] facility where the Encounter took place. Current Smoking Status This section includes the most current smoking, or tobacco-related health factor, from the [place] facility where the Encounter took place. Date/Time Current Smoking Status Comment Ava conde Jun 19, 2024 02:14 PM VA-TOBACCO NEVER USED CT [facility] [employer] [facility]
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
--- OUTSIDE RECORDS SUMMARY | 2024-11-12 09:49 | XMS_ITS | Encounter Summary ---
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 Name Role Phone RICK LILLY Primary Care [...] Name Patient's Relationship to Policy Mosqueda TRACY [facility] FEDERAL PREFERRED PROVIDER ORGANIZAT ION (PPO) BASIC SELF+ ONE Nov 27, 2020 113 [id number] Anabell SUERO R PATIENT BCBS [place] FEP PREFERRED PROVIDER ORGANIZAT ION (PPO) BASIC SELF PLUS ONE Nov 27, 2020 113 [id number] [phone] Anabell SUERO R PATIENT [employer] FEPRX PLAN PRESCRIPT ION CAREM ARK FEPRX Nov 27, 2020 [id number] Anabell SUERO R PATIENT [employer]ARK-F EP BCBS PRESCRIPT ION FEP CAREM ARK Nov 27, 2020 [id number] [phone] AUCLAIR,C HRISTOPHE R PATIENT Selected Encounter This section includes the information on record at [place] for the Encounter. Date/Time Encounter Type Encounter Description Reason Pro vider Source Jul 22, 2024 09:39 AM Outpatient Encounter PRIMARY CARE/MEDICINE IHE Encounter Template Text not used by [place] Plan of Treatment: Future Appointments (+ 6 months) and Future Tests (+/- 45 days) The Plan of Treatment section includes future care activities for the patient [facility] [place] [facility] This section includes future appointments and future orders which are active, pending or scheduled. Future Appointments This section includes appointments that were scheduled to occur 6 months from the date of the Encounter, up to a maximum of 20 appointments. The data comes from all [facility]. Appointment Date/Time Appointment Type Appointme nt Facility Name Aug 11, 2024 03:30 PM AMBULATORY [place]ICINE [place] [facility] Sep 21, 2024 10:00 AM AMBULATORY - [place]ICINE [place] [facility] Sep 21, 2024 10:01 AM AMBULATORY - MEDICINE [place] [facility] Sep 22, 2024 11:00 AM AMBULATORY - [place]CHIATRY [place] [facility] [place] [facility] Oct 09, 2024 08:30 AM AMBULATORY - PS[place]CHIATRY [place] [facility] [place] [facility] Oct 26, 2024 10:00 AM AMBULATORY - NONE [place] [place] [facility] Nov 11, 2024 09:00 AM AMBULATORY - MEDICINE [facility] [place] [facility] Active, Pending, and Scheduled Orders This section includes a listing of several types of active, pending, and scheduled orders, including clinic medications orders, diagnostic test orders, procedure orders and consult orders; where the start date of the order is 45 days before the date of the Encounter or 45 days after the date of theEncounter. The data comes from all [facility]. Test Date/Time Test Type Test Details Facility Name Jul 16, 2024 10:57 AM Consult Order COMMUNITY CARE-COLONOSCOPY DIAGNOSTIC Cons It Lead[facility] [place] [facility] Lab Results: +/- 30 days of the encounter This section includes the Chemistry and Hematology Lab Results on record with [place] for the patient. Radiology Reports and Pathology Reports are provided separately, in subsequent sections. Lab Results This section contains the Chemistry/Hematology Results that were resulted 30 days before or 30 daysafter the date of the Encounter. Date/Time Source Result Type Result - Unit Interpretation Reference Range Comment Jul 11, 2024 05:30 AM [facility] OCCULT BLOOD FIT X1 SCREEN(IN-HOUSE) Specimen Type: FECES No comment entered. Ordering Provider: OCTAVIANO LILLY Report Released Date/Time: Jul 02, 2024 03:02 PM Reporting Lab: [facility] [address] [facility] [address] Performing Lab: [facility] [address] [facility] [id number] OCCULT BLOOD (FIT)#1 OF 1 POSITIVE HH NEG Social History: Smoking Status (Most current) and Tobacco Use (All prior to encounter date) This section includes the most current, and the historical, smoking and tobacco- related health factors from the [place] facility where the Encounter took place. Current Smoking Status This section includes the most current smoking, or tobacco-related health factor, from the [place] facility where the Encounter took place. Date/Time Current Smoking Status Comment Ava conde Jun 19, 2024 02:14 PM VA-TOBACCO NEVER USED [facility] Encounter Notes: All associated encounter notes This section contains the clinical notes associated to the Encounter. Date/Time Encounter Note(s) Provider Source Jul 22, 2024 09:39 AM PREVENTIVE MEDICIN E NURSING NOTE: LOCAL TITLE: CLINICAL REMINDERS/NURSING STANDARD TITLE: PREVENTIVE MEDICINE NURSING NOTE DATE OF NOTE: JUL 22, 2024@09:39 ENTRY DATE: JUL 22, 2024@09:39:51 AUTHOR: GEORGE MOSELEYIGNER: URGENCY: STATUS: COMPLETED Diagnostic Colonoscopy: (+) FIT/FOBT identified. A diagnostic Colonoscopy is due based on information available to this reminder. A colonoscopy is currently scheduled or in process of being scheduled. Comment: Scheduled through [facility] // GEORGE MOSELEY LPN Signed: 07/22/2024 09:40 GEORGE MOSELEY [facility]
--- OUTSIDE RECORDS SUMMARY | 2024-11-12 09:49 | XMS_ITS ---
Author Name [facility] [place] Address [address] [place] [address] Care Team Providers Care Cone Sewer Name Role Phone RICK LILLY Primary Care [...] Name Patient's Relationship to Policy Mosqueda TRACY [facility] FEDERAL PREFERRED PROVIDER ORGANIZAT ION (PPO) BASIC SELF+ ONE Nov 27, 2020 113 [id number] [phone] Anabell SUERO PATIENT BCBS MA FEP PREFERRED PROVIDER ORGANIZAT ION (PPO) BASIC SELF PLUS ONE Nov 27, 2020 [id number] Anabell SUERO R PATIENT CAREMARK FEPRX PLAN PRESCRIPT ION CAREM ARK FEPRX Nov 27, 2020 [id number] [phone] Anabell SUERO R PATIENT CAREMARK-F EP BCBS PRESCRIPT ION FEP CAREM ARK Nov 27, 2020 [id number] [phone] Anabell SUERO PATIENT Selected Encounter This section includes the information on record at [place] for the Encounter. Date/Time Encounter Type Encounter Description Reason Pro vider Source Jul 03, 2024 09:40 PM Outpatient Encounter TELEPHONE MH IHE Encounter Template Text not used by [place] Plan of Treatment: Future Appointments (+ 6 months) and Future Tests (+/- 45 days) The Plan of Treatment section includes future care activities for the patient from all [place] [facility] This section includes future appointments and future orders which are active, pending or scheduled. Future Appointments This section includes appointments that were scheduled to occur 6 months from the date of the Encounter, up to a maximum of 20 appointments. The data comes from all [facility]. Appointment Date/Time Appointment Type Appointme nt Facility Name Jul 17, 2024 02:30 PM AMBULATORY [place] MEDICINE [place] [facility] Jul 21, 2024 08:00 AM AMBULATORY - [place]CHIATRY [place] [facility] Aug 11, 2024 03:30 PM AMBULATORY - MEDICINE [place] [facility] Sep 21, 2024 10:00 AM AMBULATORY - MEDICINE [place] [facility] Sep 21, 2024 10:01 AM AMBULATORY - MEDICINE [place] [facility] Sep 22, 2024 11:00 AM AMBULATORY - PS[place]CHIATRY [place] [facility] Oct 09, 2024 08:30 AM AMBULATORY - PS[place]CHIATRY [place] [facility] Oct 26, 2024 10:00 AM AMBULATORY - NONE [place] [facility] Nov 11, 2024 09:00 AM AMBULATORY - MEDICINE [facility] [place] [facility] Active, Pending, and Scheduled Orders This section includes a listing of several types of active, pending, and scheduled orders, including clinic medications orders, diagnostic test orders, procedure orders and consult orders; where the start date of the order is 45 days before the date of the Encounter or 45 days after the date of theEncounter. The data comes from all [facility]. Test Date/Time Test Type Test Details Facility Name Jul 16, 2024 10:57 AM Consult Order COMMUNITY CARE-COLONOSCOPY DIAGNOSTIC Cons Tray Worker's [facility] Lab Results: +/- 30 days of the encounter This section includes the Chemistry and Hematology Lab Results on record with [place] for the patient. Radiology Reports and Pathology Reports are provided separately, in subsequent sections. Lab Results This section contains the Chemistry/Hematology Results that were resulted 30 days before or 30 daysafter the date of the Encounter. Date/Time Source Result Type Result - Unit Interpretation Reference Range Comment Jul 11, 2024 05:30 AM [place] fotop[facility] OCCULT BLOOD FIT X1 SCREEN(IN-HOUSE) Specimen Type: FECES No comment entered. Ordering Provider: OCTAVIANO LILLY Report Released Date/Time: Jul 02, 2024 03:02 PM Reporting Lab: [facility] [address] [address] Performing Lab: [address] [address] OCCULT BLOOD (FIT)#1 OF 1 POSITIVE HH NEG Social History: Smoking Status (Most current) and Tobacco Use (All prior to encounter date) This section includes the most current, and the historical, smoking and tobacco- related health factors from the [place] facility where the Encounter took place. Current Smoking Status This section includes the most current smoking, or tobacco-related health factor, from the [place] facility where the Encounter took place. Date/Time Current Smoking Status Comment Ava conde Jun 19, 2024 02:14 PM VA-TOBACCO NEVER USED [facility]
--- OUTSIDE RECORDS SUMMARY | 2024-11-12 09:49 | XMS_ITS | Encounter Summary ---
Author Name Department of [place] Organization [place] Address [address] [place] [address] Care Team Providers Care Company Accountant Name Role Phone RICK LILLY Primary Care [...] Name Patient's Relationship to Policy Mosqueda TRACY [facility] FEDERAL PREFERRED PROVIDER ORGANIZAT ION (PPO) BASIC SELF+ ONE Nov 27, 2020 113 [id number] [phone] Anabell SEURO R PATIENT BCBS MA FEP PREFERRED PROVIDER ORGANIZAT ION (PPO) BASIC SELF PLUS ONE Nov 27, 2020 [id number] Anabell SUERO R PATIENT CAREMARK FEPRX PLAN PRESCRIPT ION CAREM ARK FEPRX Nov 27, 2020 [id number] Anabell SUERO R PATIENT CAREMARK-F EP BCBS PRESCRIPT ION FEP CAREM ARK Nov 27, 2020 [id number] AUCLAIR,C HRISTOPHE R PATIENT Selected Encounter This section includes the information on record at [place] for the Encounter. Date/Time Encounter Type Encounter Description Reason Provider Source Jul 16, 2024 10:50 AM Outpatient Encounter PRIMARY CARE/MEDICINE TONA WRIGHT Encounter Template Text not used by [place] Plan of Treatment: Future Appointments (+ 6 months) and Future Tests (+/- 45 days) The Plan of Treatment section includes future care activities for the patient from all [place] treatmentfacilities. This section includes future appointments and future orders which are active, pending or scheduled. Future Appointments This section includes appointments that were scheduled to occur 6 months from the date of the Encounter, up to a maximum of 20 appointments. The data comes from all [facility]. Appointment Date/Time Appointment Type Appointme nt Facility Name Jul 17, 2024 02:30 PM AMBULATORY - MEDICINE [place] [facility] Jul 21, 2024 08:00 AM AMBULATORY - PSYCHIATRY [place] [facility] Aug 11, 2024 03:30 PM AMBULATORY - MEDICINE [place] C [place] [place] [facility] Sep 21, 2024 10:00 AM AMBULATORY - MEDICINE [place] C [place] [facility] Sep 21, 2024 10:01 AM AMBULATORY - MEDICINE [place] [facility] Sep 22, 2024 11:00 AM AMBULATORY - PSYCHIATRY [place] [place] [facility] Oct 09, 2024 08:30 AM AMBULATORY - PSYCHIATRY [place] [facility] [place] [facility] Oct 26, 2024 10:00 AM AMBULATORY - NONE [place] [place] [facility] Nov 11, 2024 09:00 AM AMBULATORY - MEDICINE [facility] [place] [facility] Active, Pending, and Scheduled Orders This section includes a listing of several types of active, pending, and scheduled orders, including clinic medications orders, diagnostic test orders, procedure orders and consult orders; where the start date of the order is 45 days before the date of the Encounter or 45 days after the date of theEncounter. The data comes from all [facility]. Test Date/Time Test Type Test Details Facility Name Jul 16, 2024 10:57 AM Consult Order COMMUNITY CARE-COLONOSCOPY DIAGNOSTIC Cons Pump Attendant's Choice [facility] [place] [facility] Lab Results: +/- 30 days of the encounter This section includes the Chemistry and Hematology Lab Results on record with [place] for the patient. Radiology Reports and Pathology Reports are provided separately, in subsequent sections. Lab Results This section contains the Chemistry/Hematology Results that were resulted 30 days before or 30 daysafter the date of the Encounter. Date/Time Source Result Type Result - Unit Interpretation Reference Range Comment Jul 11, 2024 05:30 AM [facility] OCCULT BLOOD FIT X1 SCREEN(IN-HOUSE) Specimen Type: FECES No comment entered. Ordering Provider: OCTAVIANO LILLY Report Released Date/Time: Jul 02, 2024 03:02 PM Reporting Lab: [facility] [address] [address] Performing Lab: [address] [address] OCCULT BLOOD (FIT)#1 OF 1 POSITIVE HH NEG Social History: Smoking Status (Most current) and Tobacco Use (All prior to encounter date) This section includes the most current, and the historical, smoking and tobacco- related health factors from the [place] facility where the Encounter took place. Current Smoking Status This section includes the most current smoking, or tobacco-related health factor, from the [place] facility where the Encounter took place. Date/Time Current Smoking Status Comment Facil ity Jun 19, 2024 02:14 PM VA-TOBACCO NEVER USED [facility] Encounter Notes: All associated encounter notes This section contains the clinical notes associated to the Encounter. Date/Time Encounter Note(s) Provider Source Jul 16, 2024 11:03 AM TELEPHONE ENCOUNTE R NOTE: LOCAL TITLE: TELEPHONE NOTE/PA STANDARD TITLE: TELEPHONE ENCOUNTER NOTE DATE OF NOTE: JUL 16, 2024@11:03 ENTRY DATE: JUL 16, 2024@11:03:19 AUTHOR: TONA WRIGHT EXP COSIGNER: URGENCY: STATUS: COMPLETED --------- ------ ----- ----- OCCULT BLOOD (FIT)#1 OF 1 POSITIVE H* Ref: NEG notified Colonoscopy ordered /es/ TONA MCNALLY MS,PA-C PHYSICIAN TRADE MARKER Signed: 07/16/2024 11:04 TONA WRIGHT [facility]
--- OUTSIDE RECORDS SUMMARY | 2024-11-12 09:49 | XMS_ITS | Encounter Summary ---
Author Name Department [place] Organization [facility] [place] Address [address] [place] [address] Care Team Providers Care Overnight Associate Name Role Phone RICK LILLY Primary Care [...] Name Patient's Relationship to Policy Mosqueda TRACY [facility] FEDERAL PREFERRED PROVIDER ORGANIZAT ION (PPO) BASIC SELF+ ONE Nov 27, 2020 [id number] [phone] Anabell SUERO R PATIENT BCBS MA FEP PREFERRED PROVIDER ORGANIZAT ION (PPO) BASIC SELF PLUS ONE Nov 27, 2020 [id number] Anabell SUERO R PATIENT CAREMARK FEPRX PLAN PRESCRIPT ION CAREM ARK FEPRX Nov 27, 2020 [id number] [phone] Anabell SUERO R PATIENT CAREMARK-F EP BCBS PRESCRIPT ION FEP CAREM ARK Nov 27, 2020 [id number] [phone] AUCLAIR,C HRISTOPHE R PATIENT Selected Encounter This section includes the information on record at [place] for the Encounter. Date/Time Encounter Type Encounter Description Reason Pro vider Source Jul 22, 2024 12:00 AM Outpatient Encounter EVENT (HISTORICAL) IHE Encounter Template Text not used by [place] Plan of Treatment: Future Appointments (+ 6 months) and Future Tests (+/- 45 days) The Plan of Treatment section includes future care activities for the patient from all [place] [facility]. This section includes future appointments and future orders which are active, pending or scheduled. Future Appointments This section includes appointments that were scheduled to occur 6 months from the date of the Encounter, up to a maximum of 20 appointments. The data comes from all [facility]. Appointment Date/Time Appointment Type Appointme nt Facility Name Aug 11, 2024 03:30 PM AMBULATORY - MEDICINE [place] [facility] Sep 21, 2024 10:00 AM AMBULATORY - MEDICINE [place] [facility] Sep 21, 2024 10:01 AM AMBULATORY - MEDICINE [place] C [place] [facility] Sep 22, 2024 11:00 AM AMBULATORY - PSYCHIATRY [place] [facility] [place] [facility] Oct 09, 2024 08:30 AM AMBULATORY - PSYCHIATRY [place] [facility] [place] [facility] Oct 26, 2024 10:00 AM AMBULATORY - NONE [place] [facility] [place] [facility] Nov 11, 2024 09:00 AM AMBULATORY - MEDICINE [facility] [place] [facility] Active, Pending, and Scheduled Orders This section includes a listing of several types of active, pending, and scheduled orders, including clinic medications orders, diagnostic test orders, procedure orders and consult orders; where the start date of the order is 45 days before the date of the Encounter or 45 days after the date of theEncounter. The data comes from all [facility]. Test Date/Time Test Type Test Details Facility Name Jul 16, 2024 10:57 AM Consult Order COMMUNITY CARE-COLONOSCOPY DIAGNOSTIC Cons Push Bench Operator Helper's Choice [facility] [place] [facility] Lab Results: +/- 30 days of the encounter This section includes the Chemistry and Hematology Lab Results on record with [place] for the patient. Radiology Reports and Pathology Reports are provided separately, in subsequent sections. Lab Results This section contains the Chemistry/Hematology Results that were resulted 30 days before or 30 daysafter the date of the Encounter. Date/Time Source Result Type Result - Unit Interpretation Reference Range Comment Jul 11, 2024 05:30 AM [facility] OCCULT BLOOD FIT X1 SCREEN(IN-HOUSE) Specimen Type: FECES No comment entered. Ordering Provider: OCTAVIANO LILLY Report Released Date/Time: Jul 02, 2024 03:02 PM Reporting Lab: [facility] [address] [address] Performing Lab: [facility] [address] [address] OCCULT BLOOD (FIT)#1 OF 1 POSITIVE HH NEG Social History: Smoking Status (Most current) and Tobacco Use (All prior to encounter date) This section includes the most current, and the historical, smoking and tobacco- related health factors from the [place] facility where the Encounter took place. Current Smoking Status This section includes the most current smoking, or tobacco-related health factor, from the [place] facility where the Encounter took place. Date/Time Current Smoking Status Comment Ava conde Jun 19, 2024 02:14 PM VA-TOBACCO NEVER USED [facility]
--- OUTSIDE RECORDS SUMMARY | 2024-11-12 09:49 | XMS_ITS ---
Author Name [facility] [place] Organization [place] Address [address] [place] [address] Care Team Providers Care Supervisor Stave Cutting Name Role Phone RICK LILLY Primary Care [...] Name Patient's Relationship to Policy Mosqueda TRACY [facility] FEDERAL PREFERRED PROVIDER ORGANIZAT ION (PPO) BASIC SELF+ ONE Nov 27, 2020 113 [id number] [phone] Anabell SUERO PATIENT BCBS MA FEP PREFERRED PROVIDER ORGANIZAT ION (PPO) BASIC SELF PLUS ONE Nov 27, 2020 [id number] Anabell SUERO R PATIENT CAREMARK FEPRX PLAN PRESCRIPT ION CAREM ARK FEPRX Nov 27, 2020 [id number] [phone] Anabell SUERO R PATIENT CAREMARK-F EP BCBS PRESCRIPT ION FEP CAREM ARK Nov 27, 2020 [id number] Anabell SUERO PATIENT Selected Encounter This section includes the information on record at [place] for the Encounter. Date/Time Encounter Type Encounter Description Reason Pro vider Source Aug 10, 2024 11:09 AM Outpatient Encounter TELEPHONE MH IHE Encounter Template Text not used by [place] Plan of Treatment: Future Appointments (+ 6 months) and Future Tests (+/- 45 days) The Plan of Treatment section includes future care activities for the patient from all [place] [facility]. This section includes future appointments and future orders which are active, pending or scheduled. Future Appointments This section includes appointments that were scheduled to occur 6 months from the date of the Encounter, up to a maximum of 20 appointments. The data comes from all [place] treatment [facility]. Appointment Date/Time Appointment Type Appointme nt Facility Name Aug 11, 2024 03:30 PM AMBULATORY - MEDICINE [place] [facility] Sep 21, 2024 10:00 AM AMBULATORY - MEDICINE [facility] [place] [facility] Sep 21, 2024 10:01 AM AMBULATORY - MEDICINE [place] C [place] [facility] Sep 22, 2024 11:00 AM AMBULATORY - PSYCHIATRY [place] [facility] [place] [facility] Oct 09, 2024 08:30 AM AMBULATORY - PSYCHIATRY [place] [facility] [place] [facility] Oct 26, 2024 10:00 AM AMBULATORY - NONE [place] [facility] [place] [facility] Nov 11, 2024 09:00 AM AMBULATORY - MEDICINE [facility] [place] [facility] Active, Pending, and Scheduled Orders This section includes a listing of several types of active, pending, and scheduled orders, including clinic medications orders, diagnostic test orders, procedure orders and consult orders; where the start date of the order is 45 days before the date of the Encounter or 45 days after the date of theEncounter. The data comes from all [facility]. Test Date/Time Test Type Test Details Facility Name Jul 16, 2024 10:57 AM Consult Order COMMUNITY CARE-COLONOSCOPY DIAGNOSTIC Cons Specification Writer's Choice [place] [facility] [place] [facility] Social History: Smoking Status (Most current) and Tobacco Use (All prior to encounter date) This section includes the most current, and the historical, smoking and tobacco- related health factors from the [place] facility where the Encounter took place. Current Smoking Status This section includes the most current smoking, or tobacco-related health factor, from the [place] facility where the Encounter took place. Date/Time Current Smoking Status Comment Facil ity Jun 19, 2024 02:14 PM VA-TOBACCO NEVER USED [facility] [place] [facility] Encounter Notes: All associated encounter notes This section contains the clinical notes associated to the Encounter. Date/Time Encounter Note(s) Provider Source Aug 10, 2024 11:09 AM MENTAL HEALTH COMMUNICATION NOTE: LOCAL TITLE: PRIMARY MENTAL HEALTH CONTACT NOTE STANDARD TITLE: MENTAL HEALTH COMMUNICATION NOTE DATE OF NOTE: AUG 10, 2024@11:09 ENTRY DATE: AUG 10, 2024@11:09:23 AUTHOR: IMAN DYE EXP COSIGNER: URGENCY: STATUS: COMPLETED PRIMARY MENTAL HEALTH CONTACT NOTE Has ADDENDA PCMHI TELEPHONE NOTE DURATION: 2 mins Clarifier Operator Helper called and left a voicemail message with name and direct contact information sharing that she was calling regarding the scheduling/rescheduling of a [facility] appt and requested for a call back. /mony/ IMAN DYE, PhD STAFF PSYCHOLOGIST Signed: 08/11/2024 08:46 08/11/2024 ADDENDUM STATUS: COMPLETED Clarifier Operator Helper called Mr. Suero again and left a second voice message inquiring about 's interest in rescheduling [facility] appt and apologizing for having recent appt cancelled due to chief underwriter being out sick. Clarifier Operator Helper provided her direct contact information and another outreach letter was also mailed. /mony/ IMAN DYE, PhD STAFF PSYCHOLOGIST Signed: 08/18/2024 09:46 08/18/2024 ADDENDUM STATUS: COMPLETED Romana called chief underwriter back and was rescheduled for 09/22 at 11am. /mony/ IMAN DYE, PhD STAFF PSYCHOLOGIST Signed: 08/25/2024 13:28 IMAN DYE [facility]
--- OUTSIDE RECORDS SUMMARY | 2024-11-12 09:49 | XMS_ITS | Encounter Summary ---
Author Name [facility] [place] Address [address] [place] [address] Care Team Providers Care Case Sealer Name Role Phone RICK LILLY Primary Care [...] Name Patient's Relationship to Policy Mosqueda TR[facility]Y [facility] FEDERAL PREFERRED PROVIDER ORGANIZAT ION (PPO) BASIC SELF+ ONE Nov 27, 2020 113 [id number] Anabell SUERO PATIENT BCBS [place] FEP PREFERRED PROVIDER ORGANIZAT ION (PPO) BASIC SELF PLUS ONE Nov 27, 2020 [id number] Anabell SUERO R PATIENT CAREMARK FEPRX PLAN PRESCRIPT ION CAREM ARK FEPRX Nov 27, 2020 [id number] [phone] Anabell SUERO R PATIENT CAREMARK-F EP BCBS PRESCRIPT ION FEP CAREM ARK Nov 27, 2020 [id number] [phone] Anabell SUERO PATIENT Selected Encounter This section includes the information on record at [place] for the Encounter. Date/Time Encounter Type Encounter Description Reason Provider Source Jul 13, 2024 02:16 PM CASE MANAGEMENT ADMIN PAT ACTIVTIES (MASNONCT) ICD-10-CM Z71.89 Other specified counseling PARI NAVAS Mayi Encounter Template Text not used by [place] Assessments - Encounter Diagnoses This section includes the primary and secondary diagnoses documented for the Encounter. Date/Time Primary/Secondary Diagnosis Diagnosis Name Provider Source Jul 13, 2024 02:16 PM PRIMARY Other specified counseling PARI NAVAS [place] [facility] [place] [facility] Plan of Treatment: Future Appointments (+ 6 months) and Future Tests (+/- 45 days) The Plan of Treatment section includes future care activities for the patient [facility] [place] [facility] This section includes future appointments and future orders which are active, pending or scheduled. Future Appointments This section includes appointments that were scheduled to occur 6 months from the date of the Encounter, up to a maximum of 20 appointments. The data comes from all [place] treatment facilities. Appointment Date/Time Appointment Type Appointme nt Facility Name Jul 17, 2024 02:30 PM AMBULATORY - MEDICINE [place] [facility] [place] [facility] Jul 21, 2024 08:00 AM AMBULATORY - PSYCHIATRY [place] [facility] [place] [facility] Aug 11, 2024 03:30 PM AMBULATORY - MEDICINE [place] [facility] [place] [facility] Sep 21, 2024 10:00 AM AMBULATORY - MEDICINE [place] [facility] [place] [facility] Sep 21, 2024 10:01 AM AMBULATORY - MEDICINE [place] [facility] [place] [facility] Sep 22, 2024 11:00 AM AMBULATORY - PSYCHIATRY [place] [facility] [facility] Oct 09, 2024 08:30 AM AMBULATORY - PSYCHIATRY [place] [facility] [facility] Oct 26, 2024 10:00 AM AMBULATORY - NONE [place] [facility] [place] [facility] Nov 11, 2024 09:00 AM AMBULATORY - MEDICINE [facility] [place] [facility] Active, Pending, and Scheduled Orders This section includes a listing of several types of active, pending, and scheduled orders, including clinic medications orders, diagnostic test orders, procedure orders and consult orders; where the start date of the order is 45 days before the date of the Encounter or 45 days after the date of theEncounter. The data comes from all [place] treatment facilities. Test Date/Time Test Type Test Details Facility Name Jul 16, 2024 10:57 AM Consult Order COMMUNITY CARE-COLONOSCOPY DIAGNOSTIC Cons Medicine Teacher's Choice [facility] [employer] [facility] Lab Results: +/- 30 days of the encounter This section includes the Chemistry and Hematology Lab Results on record with [place] for the patient. Radiology Reports and Pathology Reports are provided separately, in subsequent sections. Lab Results This section contains the Chemistry/Hematology Results that were resulted 30 days before or 30 daysafter the date of the Encounter. Date/Time Source Result Type Result - Unit Interpretation Reference Range Comment Jul 11, 2024 05:30 AM [facility] OCCULT BLOOD FIT X1 SCREEN(IN-HOUSE) Specimen Type: FECES No comment entered. Ordering Provider: OCTAVIANO LILLY Report Released Date/Time: Jul 02, 2024 03:02 PM Reporting Lab: [facility] [address] [facility] [address] Performing Lab: [facility] [address] [facility] [address] OCCULT BLOOD (FIT)#1 OF 1 POSITIVE HH NEG Social History: Smoking Status (Most current) and Tobacco Use (All prior to encounter date) This section includes the most current, and the historical, smoking and tobacco- related health factors from the [place] facility where the Encounter took place. Current Smoking Status This section includes the most current smoking, or tobacco-related health factor, from the [place] facility where the Encounter took place. Date/Time Current Smoking Status Comment Ava conde Jun 19, 2024 02:14 PM VA-TOBACCO NEVER USED [facility] [employer] [facility] Encounter Notes: All associated encounter notes This section contains the clinical notes associated to the Encounter. Date/Time Encounter Note(s) Provider Source Jul 13, 2024 02:16 PM RAPID OUTSOLE STITCHER NOTE: LOCAL TITLE: POST CASE MANAGEMENT SCREENING STANDARD TITLE: RAPID OUTSOLE STITCHER NOTE DATE OF NOTE: JUL 13, 2024@14:16 ENTRY DATE: JUL 13, 2024@14:16:26 AUTHOR: PARI NAVAS EXP COSIGNER: BRETT WICK URGENCY: STATUS: COMPLETED Post 08/05 Case Management Screen The [place] was contacted by telephone. demographic information has been verified as correct. Preferred Method(s) of Communication: Email Mail Telephone Text Medical and/or Mental Health Crisis: The [place] is NOT currently experiencing a medical and/or mental health crisis. Emergency Room Visits/Hospital Admissions: The [place] has NOT had three or more emergency room visits or hospital admissions in the past six months. Chronic Health Conditions: The has NOT been diagnosed with any chronic health condition in the last 12 months. Concerns/Questions/Needs: The [place] has NO barriers to care concerns, questions or needs at this time. The [place] HAS concerns, questions or needs regarding benefits. COMPENSATION/[place] STATE BENFITS The [place] HAS concerns, questions or needs regarding managing care. WHOLE HEALTH EDUCATION The [place] has NO social concerns, questions or needs at this time. Case Management Screen Outcome: The [place] HAS identified needs as described above. The Veterans identified needs WERE resolved during this encounter. Time spent with patient: 31-45 minutes WHOLE HEALTH WHOLE HEALTH EDUCATION Whole Health Education was provided. Called as part of the TCM screening measure. A comprehensive chart review was conducted prior to this call. 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 just started utilizing the [facility] and has no complaints at this time but did mention he completed the [place] registry and then somehow ended up with a primary care provider. He was confused and states that the [facility] could have done a better job explaining the process. just started utilizing [facility] and states that he is pleased with his care. had a an appointment with [facility] on 07/02/24. [place] denied having a medical or mental health crisis during our conversation when asked. We discussed the three different components that Make up the VA. We discussed [place] state benefits that he is eligible for and I explained the function and the dynamics of the [facility] team and also educated him on whole health initiative. I also sent him and email with my contact information on it and the welcome home letter with the teams information on it for any future questions or concerns. At the end of conversation the stated that he has so many more questions and would like to meet in person. He said he had a meeting to attend but will reach out to set up an appointment. /mony/ PARI NAVAS Transitional Patient Advocate Signed: 07/13/2024 15:06 /mony/ KARI Goodson LICENSED CLINICAL PASSEMENTERIE WORKER Cosigned: 07/13/2024 16:11 APRI NAVAS [place] [facility]
--- OUTSIDE RECORDS SUMMARY | 2024-11-12 09:49 | XMS_ITS ---
Author Name [facility] [place] Organization [place] Address [address] [place] [address] Care Team Providers Care Senior Bi Architect Name Role Phone RICK LILLY Primary Care [...] Name Patient's Relationship to Policy Mosqueda TRACY [facility] FEDERAL PREFERRED PROVIDER ORGANIZAT ION (PPO) BASIC SELF+ ONE Nov 27, 2020 113 [id number] Anabell SUERO PATIENT BCBS [place] FEP PREFERRED PROVIDER ORGANIZAT ION (PPO) BASIC SELF PLUS ONE Nov 27, 2020 [id number] Anabell SUERO R PATIENT CAREMARK FEPRX PLAN PRESCRIPT ION CAREM ARK FEPRX Nov 27, 2020 [id number] [phone] Anabell SUERO R PATIENT CAREMARK-F EP BCBS PRESCRIPT ION FEP CAREM ARK Nov 27, 2020 [id number] AUCLAIR,C HRISTOPHE R PATIENT Selected Encounter This section includes the information on record at [place] for the Encounter. Date/Time Encounter Type Encounter Description Reason Provider Source Jun 30, 2024 10:36 AM Outpatient Encounter TELEPHONE PRIMARY CARE ICD-10-CM L30.9 Dermatitis, unspecified KYLETONA DAWIT IHE Encounter Template Text not used by [place] Assessments - Encounter Diagnoses This section includes the primary and secondary diagnoses documented for the Encounter. Date/Time Primary/Secondary Diagnosis Diagnosis Name Provider Source Jun 30, 2024 10:36 AM PRIMARY Dermatitis, unspecified TONA WRIGHT [place] [facility] [place] [facility] Plan of Treatment: Future Appointments (+ 6 months) and Future Tests (+/- 45 days) The Plan of Treatment section includes future care activities for the patient [facility] [place] [facility]. This section includes future appointments and future orders which are active, pending or scheduled. Future Appointments This section includes appointments that were scheduled to occur 6 months from the date of the Encounter, up to a maximum of 20 appointments. The data comes from all [place] treatment facilities. Appointment Date/Time Appointment Type Appointme nt Facility Name Jul 02, 2024 03:00 PM AMBULATORY - MEDICINE [place] C [facility] [place] [facility] Jul 02, 2024 03:30 PM AMBULATORY - PSYCHIATRY [place] [facility] [place] [place] [facility] Jul 17, 2024 02:30 PM AMBULATORY - MEDICINE MA C [facility] [place] [facility] Jul 21, 2024 08:00 AM AMBULATORY - PSYCHIATRY [place] [facility] [facility] Aug 11, 2024 03:30 PM AMBULATORY - MEDICINE MA C [facility] [place] [facility] Sep 21, 2024 10:00 AM AMBULATORY - MEDICINE [place] C [facility] [place] [facility] Sep 21, 2024 10:01 AM AMBULATORY - MEDICINE [place] C [facility] [place] [facility] Sep 22, 2024 11:00 AM AMBULATORY - PSYCHIATRY [place] [facility] [facility] Oct 09, 2024 08:30 AM AMBULATORY - PSYCHIATRY [place] [facility] [place] [facility] Oct 26, 2024 10:00 AM AMBULATORY - NONE [place] [facility] [place] [facility] Nov 11, 2024 09:00 AM AMBULATORY - MEDICINE [place] [facility] [place] [facility] Active, Pending, and Scheduled Orders This section includes a listing of several types of active, pending, and scheduled orders, including clinic medications orders, diagnostic test orders, procedure orders and consult orders; where the start date of the order is 45 days before the date of the Encounter or 45 days after the date of theEncounter. The data comes from all [place] treatment facilities. Test Date/Time Test Type Test Details Facility Name Jul 16, 2024 10:57 AM Consult Order COMMUNITY CARE-COLONOSCOPY DIAGNOSTIC Cons Shovel Mechanic's Choice [facility] Local [employer] [facility] Lab Results: +/- 30 days of the encounter This section includes the Chemistry and Hematology Lab Results on record with [place] for the patient. Radiology Reports and Pathology Reports are provided separately, in subsequent sections. Lab Results This section contains the Chemistry/Hematology Results that were resulted 30 days before or 30 daysafter the date of the Encounter. Date/Time Source Result Type Result - Unit Interpretation Reference Range Comment Jul 11, 2024 05:30 AM [facility] OCCULT BLOOD FIT X1 SCREEN(IN-HOUSE) Specimen Type: FECES No comment entered. Ordering Provider: OCTAVIANO LILLY Report Released Date/Time: Jul 02, 2024 03:02 PM Reporting Lab: [facility] [address] [facility] [address] Performing Lab: [address] [address] OCCULT BLOOD (FIT)#1 OF 1 POSITIVE HH NEG Social History: Smoking Status (Most current) and Tobacco Use (All prior to encounter date) This section includes the most current, and the historical, smoking and tobacco- related health factors from the [place] facility where the Encounter took place. Current Smoking Status This section includes the most current smoking, or tobacco-related health factor, from the [place] facility where the Encounter took place. Date/Time Current Smoking Status Comment Ava conde Jun 19, 2024 02:14 PM VA-TOBACCO NEVER USED [facility] Encounter Notes: All associated encounter notes This section contains the clinical notes associated to the Encounter. 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 Hearing loss 2. Sleep apnea 3. Glenoid labrum tear 4. Joint pain 5. Obesity 6. Eczema 7. Hypertriglyceridemia 8. Chronic neck pain 9. Impaired fasting glycemia 10. 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 COVID-19 Immunization: Immunization Series Date Facility Reaction Info COVID-19 (PFIZER), MRNA, LNP-S, * 1 11/23/2020 Outside [facility]* <C> COVID-19 (PFIZER), MRNA, LNP-S, * 2 12/14/2020 Outside [facility]* <C> COVID-19 (MODERNA), MRNA, LNP-S,* 02/24/2021 Outside [facility]* <C> Would like to discuss more about the Burn [place] (registered) Dx Eczema TC 15 min /es/ TONA MCNALLY, MS,PA-C PHYSICIAN AIRCRAFT ENGINE MECHANIC Signed: 06/30/2024 10:46 [facility]ONA WRIGHT [facility]
--- OUTSIDE RECORDS SUMMARY | 2024-11-12 09:50 | XMS_ITS | Encounter Summary ---
Author Name [place] Address [address] [place] [address] Care Team Providers Care Director Health Name Role Phone TOM WILKINS Primary Care [...] Name Patient's Relationship to Policy [place] [facility] FEDERAL PREFERRED PROVIDER ORGANIZAT ION (PPO) BASIC SELF+ ONE Nov 27, 2020 113 [id number] [id number] Anabell SUERO R PATIENT BCBS [place] FEP PREFERRED PROVIDER ORGANIZAT ION (PPO) BASIC SELF PLUS ONE Nov 27, 2020 113 [id number] [phone] Anabell SUERO R PATIENT CAREMARK FEPRX PLAN PRESCRIPT ION CAREM ARK FEPRX Nov 27, 2020 [id number] [phone] Anabell SUERO R PATIENT CAREMARK-F EP BCBS PRESCRIPT ION FEP CAREM ARK Nov 27, 2020 [id number] Anabell SUERO PATIENT Selected Encounter This section includes the information on record at [place] for the Encounter. Date/Time Encounter Type Encounter Description Reason Pro vider Source Oct 07, 2024 11:55 AM Outpatient Encounter SLEEP MEDICINE IHE Encounter Template Text not used by [place] Plan of Treatment: Future Appointments (+ 6 months) and Future Tests (+/- 45 days) The Plan of Treatment section includes future care activities for the patient from all [place] treatmentfacilities. This section includes future appointments and future orders which are active, pending or scheduled. Future Appointments This section includes appointments that were scheduled to occur 6 months from the date of the Encounter, up to a maximum of 20 appointments. The data comes from all [place] treatment facilities. Appointment Date/Time Appointment Type Appointme nt Facility Name Oct 09, 2024 08:30 AM AMBULATORY - PSYCHIATRY [facility] Oct 26, 2024 10:00 AM [facility] Nov 11, 2024 09:00 AM AMBULATORY - MEDICINE [facility] Active, Pending, and Scheduled Orders This section includes a listing of several types of active, pending, and scheduled orders, including clinic medications orders, diagnostic test orders, procedure orders and consult orders; where the start date of the order is 45 days before the date of the Encounter or 45 days after the date of theEncounter. The data comes from all [place] treatment facilities. Test Date/Time Test Type Test Details Facility Name Oct 09, 2024 09:21 AM Consult Order CRANIAL EL ECTROTHERAPY STIMULATION/NH[facility] OUTPT Cons Rental Sales Agent's Choice [facility] Nov 05, 2024 03:32 PM Consult Order SLEEP SFT IFC Cons Rental Sales Agent's Choice [facility] Social History: Smoking Status (Most current) [...] 19, 2024 02:14 PM VA-TOBACCO NEVER USED [facility] Encounter Notes: All associated encounter notes This section contains the clinical notes associated to the Encounter. Date/Time Encounter Note(s) Provider Source Oct 07, 2024 11:55 AM SLEEP MEDICINE NOT E: LOCAL TITLE: SLEEP TEST SFT DATA UPLOAD STANDARD TITLE: SLEEP MEDICINE NOTE DATE OF NOTE: OCT 07, 2024@11:55 ENTRY DATE: OCT 07, 2024@11:55:17 AUTHOR: LISBETH BARRERA COSIGNER: URGENCY: STATUS: COMPLETED Home sleep study recorder received, downloaded. Data quality is UNACCEPTABLE. Home Sleep Apnea Test (HSAT) performed on Aug Post home sleep questionnaires were RETURNED. Patient had disease specific education at this encounter. POOR DATA, MANY CHANNELS NOT RECORDED. PATIENT WILLING TO RETEST. CURING FINISHER WILL ENTER NEW CONSULT /mony/ RAJI HYDE DISC PAD PLATE FILLER Signed: 10/07/2024 11:57 Receipt Acknowledged By: 10/07/2024 13:32 /mony/ Tom Wilkins PA-C STAFF PHYSICIAN PIPE ORGAN TUNER AND REPAIRER LISBETH BARRERA CNTL [facility]
--- OUTSIDE RECORDS SUMMARY | 2024-11-12 09:50 | XMS_ITS | Encounter Summary ---
Author Name [facility] [place] Organization [place] Address [address] [place] [address] Care Team Providers Care Night Auditor Name Role Phone RICK LILLY Primary Care [...] BASIC SELF+ ONE Nov 27, 2020 113 [id number] [phone] Anabell SUERO R PATIENT BCBS MA FEP PREFERRED PROVIDER ORGANIZAT ION (PPO) BASIC SELF PLUS ONE Nov 27, 2020 113 [id number] [phone] Anabell SUERO R PATIENT CAREMARK FEPRX PLAN PRESCRIPT ION CAREM ARK FEPRX Nov 27, 2020 [id number] Anabell SUERO R PATIENT CAREMARK-F EP BCBS PRESCRIPT ION FEP CAREM ARK Nov 27, 2020 [id number] AUCLAIR,C HRISTOPHE R PATIENT Selected Encounter This section includes the information on record at [place] for the Encounter. Date/Time Encounter Type Encounter Description Reason Provider Source Sep 21, 2024 10:00 AM TELEHEALTH FACILITY FEE SLEEP STUDY ICD-10-CM G47.30 Sleep apnea, unspecified HOLLY,LISBETH IHE Encounter Template Text not used by [place] Assessments - Encounter Diagnoses This section includes the primary and secondary diagnoses documented for the Encounter. Date/Time Primary/Secondary Diagnosis Diagnosis Name Provider Source Oct 09, 2024 06:01 AM PRIMARY Sleep apnea, unspecified YESENIA PAEZ [facility] Plan of Treatment: Future Appointments (+ 6 months) and Future Tests (+/- 45 days) The Plan of Treatment section includes future care activities for the patient from all [place] [facility] This section includes future appointments and future orders which are active, pending or scheduled. Future Appointments This section includes appointments that were scheduled to occur 6 months from the date of the Encounter, up to a maximum of 20 appointments. The data comes from all [place] treatment facilities. Appointment Date/Time Appointment Type Appointme nt Facility Name Sep 22, 2024 11:00 AM AMBULATORY - PSYCHIATRY [facility] Oct 09, 2024 08:30 AM [facility] Oct 26, 2024 10:00 AM [facility]ORY - NONE [facility] Nov 11, 2024 09:00 AM [facility]ICINE [facility] Active, Pending, and Scheduled Orders This section includes a listing of several types of active, pending, and scheduled orders, including clinic medications orders, diagnostic test orders, procedure orders and consult orders; where the start date of the order is 45 days before the date of the Encounter or 45 days after the date of theEncounter. The data comes from all [place] treatment facilities. Test Date/Time Test Type Test Details Facility Name Oct 09, 2024 09:21 AM Consult Order CRANIAL EL ECTROTHERAPY STIMULATION/NHM OUTPT Cons [facility] Nov 05, 2024 03:32 PM Consult Order SLEEP SFT IFC Cons Admissions Assistant's Choice [facility] Social History: Smoking Status (Most current) and Tobacco Use (All prior to encounter date) This section includes the most current, and the historical, smoking and tobacco- related health factors from the [place] facility where the Encounter took place. Current Smoking Status This section includes the most current smoking, or tobacco-related health factor, from the [place] facility where the Encounter took place. Date/Time Current Smoking Status Comment Facil ity Jun 19, 2024 02:14 PM VA-TOBACCO NEVER USED [facility] Encounter Notes: All associated encounter notes This section contains the clinical notes associated to the Encounter. Date/Time Encounter Note(s) Provider Source Sep 21, 2024 10:00 AM TELEHEALTH NOTE: LOCAL TITLE: TELEHEALTH NOTE STANDARD TITLE: TELEHEALTH NOTE DATE OF NOTE: SEP 21, 2024@10:00 ENTRY DATE: SEP 23, 2024@14:03:50 AUTHOR: YESENIA PAEZ COSIGNER: URGENCY: STATUS: COMPLETED GEORGE SUERO checked-in with this neurodiagnostic technician at: [facility] CVT [facility] 1A PRO identified with 2 identifiers: [X] Full Name [X] Date of [X] Full SSN [ ] VA ID Card Patient consented to participate in the scheduled Clinical Video Telehealth (CVT) appointment: Yes Appointment Date/Time: Aug@10:00 Provider Name LISBETH BARRERA Title RAJI Conducted this appointment/ [facility] via Clinical Video Telehealth. DX per Telehealth Provider: Diagnosis: Sleep apnea, unspecified (ICD-10-CM G47.30) (P) Procedure: [id number] EDUC & TRAIN 1 PT; Individual (1) Education (1) [id number] STUDY UNATT&RESP EFFT; Dye House Helper Stdy Unatnd w/ Resp Effort (1) Modifier TC-Technical Component Additional Information: Does Clinical Video Telehealth (CVT) synchronous visit require Dermatology Imaging? NO /mony/ YESENIA PAEZ TELEHEALTH CLINICAL LIVESTOCK SLAUGHTERER Signed: 09/23/2024 14:06 [facility]
--- OUTSIDE RECORDS SUMMARY | 2024-11-12 09:50 | XMS_ITS | Encounter Summary ---
Author Name [facility] [place] Address [address] [place] [address] Care Team Providers Care Ruby Engineer Name Role Phone RICK LILLY Primary Care [...] Name Patient's Relationship to Policy Mosqueda TRACY [facility] FEDERAL PREFERRED PROVIDER ORGANIZAT ION (PPO) BASIC SELF+ ONE Nov 27, 2020 113 [id number] [phone] Anabell SUERO PATIENT BCBS MA FEP PREFERRED PROVIDER ORGANIZAT ION (PPO) BASIC SELF PLUS ONE Nov 27, 2020 113 [id number] Anabell SUERO R PATIENT CAREMARK FEPRX PLAN PRESCRIPT ION CAREM ARK FEPRX Nov 27, 2020 [id number] [phone] Anabell SUERO R PATIENT CAREMARK-F EP BCBS PRESCRIPT ION FEP CAREM ARK Nov 27, 2020 [id number] Anabell SUERO PATIENT Selected Encounter This section includes the information on record at [place] for the Encounter. Date/Time Encounter Type Encounter Description Reason Provider Source Oct 09, 2024 08:30 AM PSYTX W PT 30 MINUTES PCMHI INDIV ICD-10-CM F32.A Depression, unspecified ELVIE DYE IHE Encounter Template Text not used by [place] Assessments - Encounter Diagnoses This section includes the primary and secondary diagnoses documented for the Encounter. Date/Time Primary/Secondary Diagnosis Diagnosis Name Provider Source Oct 11, 2024 11:27 AM PRIMARY Depression, unspecified ELVIE DYE Cornell [place] [facility] [place] [facility] Oct 11, 2024 11:27 AM SECONDARY Anxiety disorder, unspecified THEE DYEMARK Karlo Cornell [place] [facility] [place] [facility] Oct 11, 2024 11:27 AM SECONDARY Cervicalgia HARDIKELVIE Sarabia [place] [facility] [place] [facility] Oct 11, 2024 11:27 AM SECONDARY Other chronic pain HARDIKELVIE [facility] Plan of Treatment: Future Appointments (+ 6 months) and Future Tests (+/- 45 days) The Plan of Treatment section includes future care activities for the patient from all [place] [facility]. This section includes future appointments and future orders which are active, pending or scheduled. Future Appointments This section includes appointments that were scheduled to occur 6 months from the date of the Encounter, up to a maximum of 20 appointments. The data comes from all [place] treatment facilities. Appointment Date/Time Appointment Type Appointme nt Facility Name Oct 26, 2024 10:00 AM AMBULATORY - NONE [place] [facility] [facility] Nov 11, 2024 09:00 AM AM[facility]ULATORY - [facility]ICINE [place] [facility] Active, Pending, and Scheduled Orders This section includes a listing of several types of active, pending, and scheduled orders, including clinic medications orders, diagnostic test orders, procedure orders and consult orders; where the start date of the order is 45 days before the date of the Encounter or 45 days after the date of theEncounter. The data comes from all [place] treatment facilities. Test Date/Time Test Type Test Details Facility Name Oct 09, 2024 09:21 AM Consult Order CRANIAL EL ECTROTHERAPY STIMULATION/NHM OUTPT Cons Explosive Specialist's Choice [place] [facility] [facility] Nov 05, 2024 03:32 PM Consult Order SLEEP SFT IFC Cons Explosive Specialist's Choice [place] [facility] [facility] Social History: Smoking Status (Most current) and Tobacco Use (All prior to encounter date) This section includes the most current, and the historical, smoking and tobacco- related health factors from the [place] facility where the Encounter took place. Current Smoking Status This section includes the most current smoking, or tobacco-related health factor, from the [place] facility where the Encounter took place. Date/Time Current Smoking Status Comment Facil ity Jun 19, 2024 02:14 PM VA-TOBACCO NEVER USED [place] [facility] [facility] Encounter Notes: All associated encounter notes This section contains the clinical notes associated to the Encounter. Date/Time Encounter Note(s) Provider Source Oct 09, 2024 05:04 AM [facility]: LOCAL TITLE: PRIMARY MENTAL HEALTH OUTPATIENT FOLLOW UP NOTE STANDARD TITLE: MENTAL HEALTH OUTPATIENT NOTE DATE OF NOTE: OCT 09, 2024@05:04 ENTRY DATE: OCT 09, 2024@05:04:16 AUTHOR: IMAN DYE COSIGNER: URGENCY: STATUS: COMPLETED PC-MHI OUTPATIENT F/U NOTE DURATION: 35 mins [place] is a 53 year-old, , white with a PMH of depression, anxiety, sleep apnea and chronic pain. was identified by two means, full name and date of . 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 [place] explored [place] MH treatment options other than PCMHI and expressed interest in a consult for alpha stim and this was placed. He will also continue waiting for individual therapy with [facility] and declined other [place] MH treatment options, and aims to engage in PCMHI as an interim of care. He explored challenges with trust in relationships due to past interpersonal trauma. Results on measures were reviewed and he noted worsening sleep disturbances and problems staying asleep. Options of topics to explore today were reviewed and he chose sleep hygiene. Related handouts were reviewed and provided. He explored benefits of not staying in bed more than 20 mins if unable to sleep, and will leave bed if awake 20 mins or if feeling anxious and stressed and to go in another part of the home to do something relaxing, and then try again. He will also use other forms of white noise for when TV timer shuts off and consider other white noise other than TV when initially falling to bed. He does not use electronics in bed. He identified how anxiety can interfere with sleep and how his coworker's mother two weeks ago, he attended the and was asked to speak, and this increased stress for a few day. He denied and suicidal plan or intent. SCREENERS: PHQ-9: 17, moderate severe depression, somewhat difficult KIRILL-7: 16, moderate anxiety, somewhat difficult DIAGNOSES: Depressive Disorder, Unspecified, Anxiety Disorder, Unspecified; Chronic Neck Pain; MST IMPRESSIONS/PLAN: Hollie Suero endorsed sleep disturbances, chronic pain, trauma-related anxiety and depression that originated during service. [place] has also endured several head injuries and endorsed frequent headaches and entry writer contacted PCP to request sleep study and TBI consults. [place] denied SI/HI and denied any prior MH treatment. In collaboration with considering evidence-based treatment, clinical judgment and patient preference, options of treatment were offered. agreed to return for further assessment of trauma-related anxiety, as well as brief CBT treatment for depression and anxiety including cognitive restructuring, behavioral activation and relaxation training. Moreover, he will explore habits of avoidance. He will return to -MHI for roughly 2-4, individual sessions. He will return of -MHI, 10/28 at 9am. /mony/ IMAN DYE, PhD STAFF PSYCHOLOGIST Signed: 10/11/2024 14:01 IMAN DYE [place] [facility]
--- OUTSIDE RECORDS SUMMARY | 2024-11-12 09:50 | XMS_ITS ---
Author Name [place] Organization [place] Address [address] [place] [address] Care Team Providers Care Shoemaking Finisher Name Role Phone RICK LILLY Primary Care [...] Name Patient's Relationship to Policy Mosqueda TRACY [facility] FEDERAL PREFERRED PROVIDER ORGANIZAT ION (PPO) BASIC SELF+ ONE Nov 27, 2020 113 [id number] [phone] Anabell SUERO PATIENT BCBS MA FEP PREFERRED PROVIDER ORGANIZAT ION (PPO) BASIC SELF PLUS ONE Nov 27, 2020 113 [id number] Anabell SUERO R PATIENT CAREMARK FEPRX PLAN PRESCRIPT ION CAREM ARK FEPRX Nov 27, 2020 [id number] [phone] Anabell SUERO R PATIENT CAREMARK-F EP BCBS PRESCRIPT ION FEP CAREM ARK Nov 27, 2020 [id number] [phone] Anabell SUERO PATIENT Selected Encounter This section includes the information on record at [place] for the Encounter. Date/Time Encounter Type Encounter Description Reason Pro vider Source Nov 02, 2024 11:57 AM Outpatient Encounter TELEPHONE MH IHE Encounter Template Text not used by [place] Plan of Treatment: Future Appointments (+ 6 months) and Future Tests (+/- 45 days) The Plan of Treatment section includes future care activities for the patient from all [place] treatmentfacilities. This section includes future appointments and future orders which are active, pending or scheduled. Future Appointments This section includes appointments that were scheduled to occur 6 months from the date of the Encounter, up to a maximum of 20 appointments. The data comes from all [place] treatment facilities. Appointment Date/Time Appointment Type Appointme nt Facility Name Nov 11, 2024 09:00 AM AMBULATORY - MEDICINE [place] [facility] [place] [facility] Active, Pending, and Scheduled Orders This [...] Order CRANIAL EL ECTROTHERAPY STIMULATION/NHM OUTPT Cons Sfdc Architect's Choice [place] [facility] [place] [facility] Nov 05, 2024 03:32 PM Consult Order SLEEP SFT IFC Cons Sfdc Architect's Choice [place] [facility] [place] [facility] Social History: Smoking Status (Most current) and Tobacco Use (All prior to encounter date) This section includes the most current, and the historical, smoking and tobacco- related health factors from the [place] facility where the Encounter took place. Current Smoking Status This section includes the most current smoking, or tobacco-related health factor, from the [place] facility where the Encounter took place. Date/Time Current Smoking Status Comment Facil ity Jun 19, 2024 02:14 PM VA-TOBACCO NEVER USED [place] [facility] [place] [facility] Encounter Notes: All associated encounter notes This section contains the clinical notes associated to the Encounter. Date/Time Encounter Note(s) Provider Source Nov 02, 2024 11:57 AM MENTAL HEALTH COMMUNICATION NOTE: LOCAL TITLE: PRIMARY MENTAL HEALTH CONTACT NOTE STANDARD TITLE: MENTAL HEALTH COMMUNICATION NOTE DATE OF NOTE: NOV 02, 2024@11:57 ENTRY DATE: NOV 02, 2024@11:57:33 AUTHOR: IMAN DYE EXP COSIGNER: URGENCY: STATUS: COMPLETED PRIMARY MENTAL HEALTH CONTACT NOTE Has ADDENDA PCMHI TELEPHONE NOTE DURATION: 2 mins Powerhouse Electrician called and left a voicemail message apologizing for having to cancel his PCMHI appt due to this automobile service writer being out sick. Powerhouse Electrician left her direct contact information and requested for a call back to reschedule. /es/ IMAN DYE, PhD STAFF PSYCHOLOGIST Signed: 11/04/2024 09:05 11/04/2024 ADDENDUM STATUS: COMPLETED Correction- [place] cancelled recent PCMHI appt. Powerhouse Electrician called and left a second voicemail message inquiring about his recent cancellation of PCMHI appt and inquiring if he would like to reschedule. A letter was also mailed. VM and letter both had direct contact information. /mony/ IMAN DYE, PhD STAFF PSYCHOLOGIST Signed: 11/10/2024 15:42 11/10/2024 ADDENDUM STATUS: UNSIGNED You may not VIEW this UNSIGNED Addendum. IMAN DYE [place] [facility] [facility]
--- OUTSIDE RECORDS SUMMARY | 2024-11-12 09:50 | XMS_ITS | Encounter Summary ---
Author Name [place] Address [address] [place] [address] Care Team Providers Care Character Actor Name Role Phone RICK LILLY Primary Care [...] Name Patient's Relationship to Policy Mosqueda TRACY [facility] FEDERAL PREFERRED PROVIDER ORGANIZAT ION (PPO) BASIC SELF+ ONE Nov 27, 2020 113 [id number] Anabell SUERO R PATIENT BCBS MA FEP PREFERRED PROVIDER ORGANIZAT ION (PPO) BASIC SELF PLUS ONE Nov 27, 2020 113 [id number] Anabell SUERO R PATIENT CAREMARK FEPRX PLAN PRESCRIPT ION CAREM ARK FEPRX Nov 27, 2020 [id number] [phone] Anabell SUERO R PATIENT CAREMARK-F EP BCBS PRESCRIPT ION FEP CAREM ARK Nov 27, 2020 [id number] AUCLAIR,C HRISTOPHE R PATIENT Selected Encounter This section includes the information on record at [place] for the Encounter. Date/Time Encounter Type Encounter Description Reason Provider Source Oct 21, 2024 12:30 PM Outpatient Encounter TELEPHONE/MEDICINE LISBETH BARRERA Encounter Template Text not used by [place] [...] AM AM[place]UL[place]ORY - NONE [place] [facility] Nov 11, 2024 09:00 AM AMBULATORY - MEDICINE [place] [facility] Active, Pending, and Scheduled Orders [...] Order CRANIAL EL ECTROTHERAPY STIMULATION/NHM OUTPT Cons Activated Sludge [facility]endant[facility] [place] [facility] Nov 05, 2024 03:32 PM Consult Order SLEEP SFT IFC Cons Activated Sludge Attendant's [facility] Social History: Smoking Status (Most [...] 19, 2024 02:14 PM VA-TOBACCO NEVER USED [facility] Encounter Notes: All associated encounter notes This section contains the clinical notes associated to the Encounter. Date/Time Encounter Note(s) Provider Source Oct 21, 2024 12:30 PM SLEEP MEDICINE CON SULT: LOCAL TITLE: SLEEP STUDY/CONSULT REPORT STANDARD TITLE: SLEEP MEDICINE CONSULT DATE OF NOTE: OCT 21, 2024@12:30 ENTRY DATE: OCT 21, 2024@14:47:12 AUTHOR: LISBETH BARRERA COSIGNER: URGENCY: STATUS: COMPLETED SLEEP STUDY/CONSULT REPORT Has ADDENDA Service Location Device Information Education was provided about what sleep apnea is, how home sleep apnea testing is used to diagnose sleep apnea, and what treatment options are most commonly used to treat it. Patient attended an individual appointment for instruction on use of home sleep testing equipment. Device was given to patient with written instructions and contact information included. All questions were answered and the patient expressed understanding of the provided instructions and care plan. Patient was offered to receive home sleep testing device by mail and accepted. Verbal instruction was provided for use of home sleep testing equipment. All questions were answered and the patient expressed understanding of the provided instructions and care plan. was mailed a package including: Other notes failed 1st attempt Minutes professional time spent providing care.: 30 min Diagnoses: G47.33 - Obstructive Sleep Apnea Procedures 1 Individual (1) Education /mony/ RAJI HYDE THEATRICAL AGENT Signed: 10/21/2024 14:47 10/21/2024 ADDENDUM STATUS: COMPLETED PATIENT CONNECTED TO VIDEO APPOINTMENT HOWEVER HE COULD NOT BE SEEN OR HEARD. THIS VVC WAS RENDERED TO A PHONE CALL. /RAJI Peng THEATRICAL AGENT Signed: 10/21/2024 15:14 11/05/2024 ADDENDUM STATUS: COMPLETED HSAT kit returned with satisfactory data recorded. Scoring completed. IFC for interpretation entered. /mony/ RAJI HYDE THEATRICAL AGENT Signed: 11/05/2024 15:31 LISBETH BARRERA [place] [facility]
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
--- OUTSIDE RECORDS SUMMARY | 2024-11-12 09:50 | XMS_ITS ---
Author Name [facility] [place] Organization [place] Address [address] [place] [address] Care Team Providers Care Top Ironer Name Role Phone RICK LILLY Primary Care [...] Name Patient's Relationship to Policy Mosqueda TRACY [facility] FEDERAL PREFERRED PROVIDER ORGANIZAT ION (PPO) BASIC SELF+ ONE Nov 27, 2020 113 [id number] Anabell SUERO PATIENT BCBS MA FEP PREFERRED PROVIDER ORGANIZAT ION (PPO) BASIC SELF PLUS ONE Nov 27, 2020 [id number] Anabell SUERO R PATIENT [employer] FEPRX PLAN PRESCRIPT ION CAREM ARK FEPRX Nov 27, 2020 [id number] [phone] Anabell SUERO R PATIENT [employer]-F EP BCBS PRESCRIPT ION FEP CAREM ARK Nov 27, 2020 [id number] Anabell SUERO PATIENT Selected Encounter This section includes the information on record at [place] for the Encounter. Date/Time Encounter Type Encounter Description Reason Provider Source Oct 21, 2024 12:30 PM SELF-MGMT EDUC & TRAIN 1 PT SLEEP MEDICINE ICD-10-CM G47.33 Obstructive sleep apnea (adult) (pediatric) HOLLY,LISBETH IHE Encounter Template Text not used by [place] Assessments - Encounter Diagnoses This section includes the primary and secondary diagnoses documented for the Encounter. Date/Time Primary/Secondary Diagnosis Diagnosis Name Provider Source Oct 21, 2024 12:30 PM PRIMARY Obstructive sleep apnea (adult) (pediatric) HOLLY,LISBETH [facility] Plan of Treatment: Future Appointments (+ 6 months) and Future Tests (+/- 45 days) The Plan of Treatment section includes future care activities for the patient from all [place] [facility] This section includes future appointments and future orders which are active, pending or scheduled. Future Appointments This section includes appointments that were scheduled to occur 6 months from the date of the Encounter, up to a maximum of 20 appointments. The data comes from all [place] treatment facilities. Appointment Date/Time Appointment Type Appointme nt Facility Name Oct 26, 2024 10:00 AM [facility] NONE [facility] Nov 11, 2024 09:00 AM AMBULATORY - MED[facility] Active, Pending, and Scheduled Orders This section includes a listing of several types of active, pending, and scheduled orders, including clinic medications orders, diagnostic test orders, procedure orders and consult orders; where the start date of the order is 45 days before the date of the Encounter or 45 days after the date of theEncounter. The data comes from all [place] treatment facilities. Test Date/Time Test Type Test Details Facility Name Oct 09, 2024 09:21 AM Consult Order CRANIAL EL ECTROTHERAPY STIMULATION/NHM OUTPT Cons Chicken Sexer's Choice [facility] Nov 05, 2024 03:32 PM Consult Order SLEEP SFT IFC Cons Chicken Sexer's Choice [facility] Social History: Smoking Status (Most current) and Tobacco Use (All prior to encounter date) This section includes the most current, and the historical, smoking and tobacco- related health factors from the [place] facility where the Encounter took place. Current Smoking Status This section includes the most current smoking, or tobacco-related health factor, from the [place] facility where the Encounter took place. Date/Time Current Smoking Status Comment Facil ity Jun 19, 2024 02:14 PM VA-TOBACCO NEVER USED [place] [facility] [place] [facility]
--- OUTSIDE RECORDS SUMMARY | 2024-11-12 09:50 | XMS_ITS | Encounter Summary ---
Author Name Department [place] Organization [place] Address [address] [place] [address] Care Team Providers Care Button Sewing Machine Operator Name Role Phone RICK LILLY Primary Care [...] Name Patient's Relationship to Policy Mosqueda TRACY [facility] CT FEDERAL PREFERRED PROVIDER ORGANIZAT ION (PPO) BASIC SELF+ ONE Nov 27, 2020 [id number] Anabell SUERO R PATIENT BCBS MA FEP PREFERRED PROVIDER ORGANIZAT ION (PPO) BASIC SELF PLUS ONE Nov 27, 2020 [id number] [phone] Anbaell SUERO R PATIENT [employer] FEPRX PLAN PRESCRIPT ION CAREM ARK FEPRX Nov 27, 2020 [id number] Anabell SUERO R PATIENT [employer]-F EP BCBS PRESCRIPT ION FEP CAREM ARK Nov 27, 2020 [id number] [phone] Anabell SUERO PATIENT Selected Encounter This section includes the information on record at [place] for the Encounter. Date/Time Encounter Type Encounter Description Reason Provider Source Sep 21, 2024 10:01 AM SLEEP STUDY UNATT&RESP EFFT SLEEP STUDY ICD-10-CM G47.30 Sleep apnea, unspecified HOLLY,LISBETH IHE Encounter Template Text not used by [place] Assessments - Encounter Diagnoses This section includes the primary and secondary diagnoses documented for the Encounter. Date/Time Primary/Secondary Diagnosis Diagnosis Name Provider Source Nov 09, 2024 07:41 AM PRIMARY Sleep apnea, unspecified HOLLY,LISBETH [facility] ([facility]) Plan of Treatment: Future Appointments (+ 6 months) and Future Tests (+/- 45 days) The Plan of Treatment section includes future care activities for the patient from all [place] [facility]. This section includes future appointments [...] 22, 2024 11:00 AM AMBULATORY - PSYCHIATRY [facility] Oct 09, 2024 08:30 AM [facility] Oct 26, 2024 10:00 AM AMBULATORY - NONE [facility] Nov 11, 2024 09:00 AM [facility] Active, Pending, and Scheduled Orders This [...] Order CRANIAL EL ECTROTHERAPY STIMULATION/NHM OUTPT Cons Funding Specialist's Choice [facility] Nov 05, 2024 03:32 PM Consult Order SLEEP SFT IFC Cons Funding Specialist's Choice [facility] Encounter Notes: All associated encounter notes This section contains the clinical notes associated to the Encounter. Date/Time Encounter Note(s) Provider Source Sep 21, 2024 10:01 AM SLEEP MEDICINE CON SULT: LOCAL TITLE: SLEEP STUDY/CONSULT REPORT STANDARD TITLE: SLEEP MEDICINE CONSULT DATE OF NOTE: SEP 21, 2024@10:01 ENTRY DATE: SEP 21, 2024@12:42:20 AUTHOR: LISBETH BARRERA EXP COSIGNER: URGENCY: STATUS: COMPLETED SLEEP STUDY/CONSULT REPORT Has ADDENDA Service Location [facility] Device Information DeviceName: [id number] DeviceSerialNumber: [id number] Education was provided about what sleep apnea [...] of the provided instructions and care plan. Other notes Loud snoring, EDS, falls asleep after dinner on sofa, wakes gasping, a.m. fatigue, to BR 1x/pm, restless sleeper, Minutes professional time spent providing care.: 30 min Diagnoses: G47.30 - Sleep apnea, unspecified Procedures 1 Individual (1) Education /mony/ RAJI HYDE ON CALL Signed: 09/21/2024 12:42 09/21/2024 ADDENDUM STATUS: COMPLETED Telehealth Informed Consent: Visit conducted by synchronous video telehealth. Patient verbal consent obtained. Location and emergency point of contact and/or number confirmed. verbalized consent for this CVT visit: Yes /mony/ RAJI HYDE ON CALL Signed: 09/21/2024 12:42 LISBETH BARRERA [facility] (126OD)
--- OUTSIDE RECORDS SUMMARY | 2024-11-12 09:50 | XMS_ITS ---
Author Name Department [place] Organization [place] Address [address] [place] [address] Care Team Providers Care Placement Coordinator Name Role Phone RICK LILLY Primary Care [...] Patient's Relationship to Policy Mosqueda TRACY [facility] CT FEDERAL PREFERRED PROVIDER ORGANIZAT ION (PPO) BASIC SELF+ ONE Nov 27, 2020 [id number] Anabell SUERO R PATIENT BCBS MA FEP PREFERRED PROVIDER ORGANIZAT ION (PPO) BASIC SELF PLUS ONE Nov 27, 2020 [id number] Anabell SUERO R PATIENT [employer] FEPRX PLAN PRESCRIPT ION CAREM ARK FEPRX Nov 27, 2020 [id number] Anabell SUERO R PATIENT [employer]-F EP BCBS PRESCRIPT ION FEP CAREM ARK Nov 27, 2020 [id number] [phone] Anabell SUERO PATIENT Selected Encounter This section includes the information on record at [place] for the Encounter. Date/Time Encounter Type Encounter Description Reason Provider Source Oct 19, 2024 12:34 PM SLEEP STUDY UNATT&RESP EFFT SLEEP STUDY ICD-10-CM R06.83 Snoring HOLLYPERNELL DanielLISBETH IHE Encounter Template Text not used by [place] Assessments - Encounter Diagnoses This section includes the primary and secondary diagnoses documented for the Encounter. Date/Time Primary/Secondary Diagnosis Diagnosis Name Provider Source Oct 19, 2024 12:34 PM PRIMARY Snoring [facility] [facility]IC [facility] Plan of Treatment: Future Appointments [...] - NONE [place] [facility] [place] [facility] Nov 11, 2024 09:00 AM AMBULATORY - MEDICINE [place] [facility] Active, Pending, and Scheduled Orders This [...] Order CRANIAL EL ECTROTHERAPY STIMULATION/NHM OUTPT Cons Lidar Scientist's Choice [place] [facility] [place] [facility] Nov 05, 2024 03:32 PM Consult Order SLEEP SFT IFC Cons Lidar Scientist's Choice [place] [facility] [facility] Encounter Notes: All associated encounter notes This section contains the clinical notes associated to the Encounter. Date/Time Encounter Note(s) Provider Source Oct 19, 2024 12:34 PM SLEEP MEDICINE CON SULT: LOCAL TITLE: SLEEP STUDY/CONSULT REPORT STANDARD TITLE: SLEEP MEDICINE CONSULT DATE OF NOTE: OCT 19, 2024@12:34:03 ENTRY DATE: OCT 19, 2024@12:34:04 AUTHOR: LISBETH BARRERA EXP COSIGNER: URGENCY: STATUS: COMPLETED Service Location [facility] [place] [address] Device Information DeviceName: [id number] DeviceSerialNumber: [id number] Oximeter: 80:4B:50:39:DC:E4 Patient was offered to receive home sleep testing device by mail and accepted. Fine was mailed a package including: Written instructions on device use with links to online videos and instructions from the head of it. Instructions on device return (does not apply to disposable device) and contact information for the sleep center. Educational materials on positive airway pressure therapy. Patient questionnaires. Minutes professional time spent providing care.: 30 min Diagnoses: R06.83 - Snoring Procedures 1 Rodeo Rider Stdy Unatnd w/ Resp Effort Modifiers technical component /mony/ RAJI HYDE FILL TECHNICIAN Signed: 10/19/2024 12:34 LISBETH BARRERA [facility] (6[facility])
--- OUTSIDE RECORDS SUMMARY | 2024-11-12 09:50 | XMS_ITS | Encounter Summary ---
Author Name [facility] [place] [facility] [place] [facility] [place] Address [address] [place] [address] Care Team Providers Care Director Radio News Name Role Phone RICK WILKINS Primary Care [...] Name Patient's Relationship to Policy Mosqueda [facility] FEDERAL PREFERRED PROVIDER ORGANIZAT ION (PPO) BASIC SELF+ ONE Nov 27, 2020 [id number] [phone] Anabell SUERO PATIENT BCBS MA FEP PREFERRED PROVIDER ORGANIZAT ION (PPO) BASIC SELF PLUS ONE Nov 27, 2020 [id number] Anabell SUERO R PATIENT [employer] FEPRX PLAN PRESCRIPT ION CAREM ARK FEPRX Nov 27, 2020 [id number] Anabell SUERO R PATIENT [employer]ARK-F EP BCBS PRESCRIPT ION FEP CAREM ARK Nov 27, 2020 [id number] Anabell SUERO PATIENT Selected Encounter This section includes the information on record at [place] for the Encounter. Date/Time Encounter Type Encounter Description Reason Provider Source Nov 11, 2024 09:00 AM OFFICE O/P EST LOW 20 MIN PRIMARY CARE/MEDICINE ICD-10-CM K92.1 OSMIN Goins AM [facility] Encounter Template Text not used by [place] Assessments - Encounter Diagnoses This section includes the primary and secondary diagnoses documented for the Encounter. Date/Time Primary/Secondary Diagnosis Diagnosis Name Provider Source Nov 11, 2024 09:33 AM PRIMARY OCTAVIANO Goins [facility] Plan of Treatment: Future Appointments (+ 6 months) and Future Tests (+/- 45 days) The Plan of Treatment section includes future care activities for the patient from all [place] treatmentfacilities. This section includes future appointments and future orders which are active, pending or scheduled. Active, Pending, and Scheduled Orders This section includes a listing of several types of active, pending, and scheduled orders, including clinic medications orders, diagnostic test orders, procedure orders and consult orders; where the start date of the order is 45 days before the date of the Encounter or 45 days after the date of theEncounter. The data comes from all [place] treatment facilities. Test Date/Time Test Type Test Details Facility Name Oct 09, 2024 09:21 AM Consult Order CRANIAL EL ECTROTHERAPY STIMULATION/NHM OUTPT Cons Answering Service Operator's Choice [facility] [place] [facility] Nov 05, 2024 03:32 PM Consult Order SLEEP SFT IFC Cons Answering Service [facility] Vital Signs: All taken on the encounter date This section contains inpatient and outpatient Vital Signs collected on the date of the Encounter. Date/Time Temperature Pulse Blood Pressure Respiratory Rate SP02 Pain Height Weight Body Mass Index Source Nov 11, 2024 08:59 AM 98.3 71 134/91 20 98 3 67 167 26 [facility] Social History: Smoking Status (Most current) and Tobacco Use (All prior to encounter date) This section includes the most current, and the historical, smoking and tobacco- related health factors from the [place] facility where the Encounter took place. Current Smoking Status This section includes the most current smoking, or tobacco-related health factor, from the [facility] facility where the Encounter took place. Date/Time Current Smoking Status Comment Facil amaya Jun 19, 2024 02:14 PM VA-TOBACCO NEVER USED [facility] [place] [facility] Encounter Notes: All associated encounter notes This section contains the clinical notes associated to the Encounter. Date/Time Encounter Note(s) Provider Source Nov 11, 2024 11:14 AM ADDENDUM: LOCAL TITLE: Addendum STANDARD TITLE: ADDENDUM DATE OF NOTE: NOV 11, 2024@11:14:31 ENTRY DATE: NOV 11, 2024@11:14:32 AUTHOR: RICK WILKINS EXP COSIGNER: URGENCY: STATUS: COMPLETED Depression? Declines f/u with DR Goldstein for now. Tells me that he is pending in [facility] [place] [facility] which is closer to home. I ask if he means the 's center, but he is sure it is [facility] I will share with Dr Goldstein, so that she is not expecting fu from him. /mony/ Rick Wilkins PA-C STAFF PHYSICIAN HEMATOLOGY SPECIALIST Signed: 11/11/2024 11:14 Receipt Acknowledged By: 11/11/2024 11:19 /mony/ IMAN GOLDSTEIN, PhD STAFF PSYCHOLOGIST --- Original Document --- 11/11/24 SHAILESH NOTE: CC/HPI/A/P: 53 year old MALE here in follow-up for; Blood in stool, GI consult done, pending procedure in April. He asks about getting it done sooner. I suggest that he call gi every few weeks and ask about cancellations. He has no FH Of colon cancer. Hip pain, xrays by DR Haney pending ct. Review of systems: Patient reports no changes from [place]ual [place] [facility], in meds or any admissions. Active problems - Computerized Problem List is the source for the followin. Exposure to potentially hazardous substance ([facility] [id number]) Entered automatically through [facility] Problem List documentation program 2. Hearing loss Bilateral 3. Sleep apnea 4. Glenoid labrum tear 5. Joint pain Pain of right knee joint 6. Obesity 7. Eczema Eczema- elbows, back of hands 8. Hypertriglyceridemia 9. Chronic neck pain 10. Impaired fasting glycemia 11. Kidney stone SERVICE CONNECTED % - NONE FOUND VA and Non VA meds were reconciled with the patient who left with a corrected copy. See medication page for details. Active and Recently Outpatient Medications (excluding Supplies): No Medications Found 98.3 F [36.8 C] (11/11/2024 08:59) 71 (11/11/2024 08:59) 20 (11/11/2024 08:59) 134/91 (11/11/2024 08:59) 3 (11/11/2024 08:59) 67 in [170.2 cm] (11/11/2024 08:59) 167 lb [75.75 kg] (11/11/2024 08:59) BMI: 26.2 Neuro: Alert and oriented times three, grossly nonfocal, nasolabial folds intact. He will send one year of labs and a list of shots, declines fluv, covid and shingles here today. Depression? Declines f/u with DR Goldstein for now. Tells me that he is pending in [facility] [place] [facility] which is closer to home. I ask if he means the 's center, but he is sure it is [facility]' I will share with Dr Goldstein, so that she is not expecting fu from him. BMI>30/>24.99 High Risk: Patient and provider agree that current weight is within a healthy range and further discussion is not necessary at this time. Patient declines to discuss weight management. Patient declined weight discussion. Discussed revisiting at a future visit. /mony/ Rick Wilkins PA-C STAFF PHYSICIAN HEMATOLOGY SPECIALIST Signed: 11/11/2024 09:33 [place] WILKINS [place] [facility] [place] [facility] Nov 11, 2024 09:25 AM PHYSICIAN HEMATOLOGY SPECIALIST NOTE: LOCAL TITLE: SHAILESH NOTE STANDARD TITLE: PHYSICIAN HEMATOLOGY SPECIALIST NOTE DATE OF NOTE: NOV 11, 2024@09:25 ENTRY DATE: NOV 11, 2024@09:25:50 AUTHOR: RICK WILKINS EXP COSIGNER: URGENCY: STATUS: COMPLETED SHAILESH NOTE Has ADDENDA CC/HPI/A/P: 53 year old MALE here in follow-up for; Blood in stool, GI consult done, pending procedure in April. He asks about getting it done sooner. I suggest that he call gi every few weeks and ask about cancellations. He has no FH Of colon cancer. Hip pain, xrays by DR Haney pending ct. Review of systems: Patient reports no changes from [place]ual [facility] Health[place], in meds or any admissions. Active problems - Computerized Problem List is the source for the followin. Exposure to potentially hazardous substance ([facility] [id number]) Entered automatically through [facility] Problem List documentation program 2. Hearing loss Bilateral 3. Sleep apnea 4. Glenoid labrum tear 5. Joint pain Pain of right knee joint 6. Obesity 7. Eczema Eczema- elbows, back of hands 8. Hypertriglyceridemia 9. Chronic neck pain 10. Impaired fasting glycemia 11. Kidney stone SERVICE CONNECTED % - NONE FOUND VA and Non VA meds were reconciled with the patient who left with a corrected copy. See medication page for details. Active and Recently Outpatient Medications (excluding Supplies): No Medications Found 98.3 F [36.8 C] (11/11/2024 08:59) 71 (11/11/2024 08:59) 20 (11/11/2024 08:59) 134/91 (11/11/2024 08:59) 3 (11/11/2024 08:59) 67 in [170.2 cm] (11/11/2024 08:59) 167 lb [75.75 kg] (11/11/2024 08:59) BMI: 26.2 Neuro: Alert and oriented times three, grossly nonfocal, nasolabial folds intact. He will send one year of labs and a list of shots, declines fluv, covid and shingles here today. Depression? Declines f/u with DR Goldstein for now. Tells me that he is pending in [facility] [place] [facility] which is closer to home. I ask if he means the 's center, but he is sure it is [facility]' I will share with Dr Goldstein, so that she is not expecting fu from him. BMI>30/>24.99 High Risk: Patient and provider agree that current weight is within a healthy range and further discussion is not necessary at this time. Patient declines to discuss weight management. Patient declined weight discussion. Discussed revisiting at a future visit. /mony/ Rick Wilkins PA-C STAFF PHYSICIAN HEMATOLOGY SPECIALIST Signed: 11/11/2024 09:33 11/11/2024 ADDENDUM STATUS: COMPLETED Depression? Declines f/u with DR Goldstein for now. Tells me that he is pending in [facility] [place] [facility] which is closer to home. I ask if he means the [place], but he is sure it is [facility]' I will share with Dr Goldstein, so that she is not expecting fu from him. /mony/ Rick Wilkins PA-C STAFF PHYSICIAN HEMATOLOGY SPECIALIST Signed: 11/11/2024 11:14 Receipt Acknowledged By: 11/11/2024 11:19 /es/ IMAN GOLDSTEIN, PhD STAFF PSYCHOLOGIST RICK WILKINS [place] [facility] [place] [facility] Nov 11, 2024 09:02 AM PREVENTIVE MEDICINE NURSING NOTE: LOCAL TITLE: CLINICAL REMINDERS/NURSING STANDARD TITLE: PREVENTIVE MEDICINE NURSING NOTE DATE OF NOTE: NOV 11, 2024@09:02 ENTRY DATE: NOV 11, 2024@09:02:15 AUTHOR: JAVAN MARTINSIGNER: URGENCY: STATUS: COMPLETED RHS Screen: RHS Screen Session Format: Face to Face Environmental Check Upon inquiry, the individual reports that the environment is safe to proceed. Informed Consent to Screen and Document The individual consents to proceed with screening. The individual consents to documentation of responses. PRIMARY SCREEN: In the past 12 months, how often did a current or former intimate partner (e.g., boyfriend, girlfriend, , , sexual partner): 1. Scream or curse at you Never 2. Insult or talk down to you Never 3. Threaten you with harm Never 4. Physically hurt you Never 5. Force or pressure you to have sexual contact against your will, or when you were unable to say no Never ?? The HITS tool (items 1-4 above) is [place] copyright protected by Ori Martinez MD, and the user has full rights to use it throughout the [place] system. PRIMARY SCREEN RESULT: The Primary Screen is NEGATIVE. The individual answered never to all forms of IPV above (i.e., answered never to all 5 items) The individual accepts education and/or resources: No EDUCATION: Other: not interested at this time /mony/ Javan [employer] SAIL LAY OUT WORKER,PRIMARY CARE Signed: 11/11/2024 09:03 JAVAN MARTINS [facility]
--- OUTSIDE RECORDS SUMMARY | 2024-11-12 09:51 | XMS_ITS | Data Portability ---
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 MUST MEET 2 OUT OF 3 ELEMENTS: PROBLEMS, DATA OR RISK ELEMENT 1: PROBLEMS ADDRESSED 1 OR MORE CHRONIC ILLNESS WITH EXACERBATION OR 2 OR MORE STABLE CHRONIC ILLNESSES OR 1 UNDIAGNOSED NEW PROBLEM OR 1 ACUTE ILLNESS W/SYMPTOMS OR 1 ACUTE COMPLICATED INJURY ELEMENT 2: DATA MUST MEET 1 OF 3 CATEGORIES CATEGORY 1: REVIEW OF PRIOR EXTERNAL NOTES, REVIEW OF RESULTS, ORDERING OF EACH TEST, ASSESSMENT REQUIRING INDEPENDENT HISTORIAN OR CATEGORY 2: INDEPENDENT INTERPRETATION OF TESTS BY ANOTHER PHYSICIAN OR SPECIALIST OR CATEGORY 3: DISCUSSION OF MGT OR TEST INTERPRETATION W/EXTERNAL PHYSICIAN OR SPECIALIST ELEMENT 3: RISK RISK OF COMPLICATIONS AND/OR MORBIDITY OR MORTALITY OF PATIENT MANAGEMENT PROVIDER MUST THOROUGHLY DOCUMENT EACH ELEMENT THAT IS COVERED Not available 02/11/2024 15:01:56 02/26/2024 02/26/2024 [id number] [place] [id number] (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 MUST MEET 2 OUT OF 3 ELEMENTS: PROBLEMS, DATA OR RISK ELEMENT 1: PROBLEMS ADDRESSED 1 OR MORE CHRONIC ILLNESS WITH EXACERBATION OR 2 OR MORE STABLE CHRONIC ILLNESSES OR 1 UNDIAGNOSED NEW PROBLEM OR 1 ACUTE ILLNESS W/SYMPTOMS OR 1 ACUTE COMPLICATED INJURY ELEMENT 2: DATA MUST MEET 1 OF 3 CATEGORIES CATEGORY 1: REVIEW OF PRIOR EXTERNAL NOTES, REVIEW OF RESULTS, ORDERING OF EACH TEST, ASSESSMENT REQUIRING INDEPENDENT HISTORIAN OR CATEGORY 2: INDEPENDENT INTERPRETATION OF TESTS BY ANOTHER PHYSICIAN OR SPECIALIST OR CATEGORY 3: DISCUSSION OF MGT OR TEST INTERPRETATION W/EXTERNAL PHYSICIAN OR SPECIALIST ELEMENT 3: RISK RISK OF COMPLICATIONS AND/OR MORBIDITY OR MORTALITY OF PATIENT MANAGEMENT PROVIDER MUST THOROUGHLY DOCUMENT EACH ELEMENT THAT IS COVERED Not available 02/26/2024 12:26:22 04/29/2024 04/29/2024 [id number] [place] [id number] (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) [facility] MODERATE MUST MEET 2 OUT OF 3 ELEMENTS: PROBLEMS, DATA OR RISK ELEMENT 1: PROBLEMS ADDRESSED 1 OR MORE CHRONIC ILLNESS WITH EXACERBATION OR 2 OR MORE STABLE CHRONIC ILLNESSES OR 1 UNDIAGNOSED NEW PROBLEM OR 1 ACUTE ILLNESS W/SYMPTOMS OR 1 ACUTE COMPLICATED INJURY ELEMENT 2: DATA MUST MEET 1 OF 3 CATEGORIES CATEGORY 1: REVIEW OF PRIOR EXTERNAL NOTES, REVIEW OF RESULTS, ORDERING OF EACH TEST, ASSESSMENT REQUIRING INDEPENDENT HISTORIAN OR CATEGORY 2: INDEPENDENT INTERPRETATION OF TESTS BY ANOTHER PHYSICIAN OR SPECIALIST OR CATEGORY 3: DISCUSSION OF MGT OR TEST INTERPRETATION W/EXTERNAL PHYSICIAN OR SPECIALIST ELEMENT 3: RISK RISK OF COMPLICATIONS AND/OR MORBIDITY OR MORTALITY OF PATIENT MANAGEMENT PROVIDER MUST THOROUGHLY DOCUMENT EACH ELEMENT THAT IS COVERED Not available 04/29/2024 12:18:41 08/07/2024 08/07/2024 [id number] [place] [id number] (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) [facility] MODERATE MUST MEET 2 OUT OF 3 ELEMENTS: PROBLEMS, DATA OR RISK ELEMENT 1: PROBLEMS ADDRESSED 1 OR MORE CHRONIC ILLNESS WITH EXACERBATION OR 2 OR MORE STABLE CHRONIC ILLNESSES OR 1 UNDIAGNOSED NEW PROBLEM OR 1 ACUTE ILLNESS W/SYMPTOMS OR 1 ACUTE COMPLICATED INJURY ELEMENT 2: DATA MUST MEET 1 OF 3 CATEGORIES CATEGORY 1: REVIEW OF PRIOR EXTERNAL NOTES, REVIEW OF RESULTS, ORDERING OF EACH TEST, ASSESSMENT REQUIRING INDEPENDENT HISTORIAN OR CATEGORY 2: INDEPENDENT INTERPRETATION OF TESTS BY ANOTHER PHYSICIAN OR SPECIALIST OR CATEGORY 3: DISCUSSION OF MGT OR TEST INTERPRETATION W/EXTERNAL PHYSICIAN OR SPECIALIST ELEMENT 3: RISK RISK OF COMPLICATIONS AND/OR MORBIDITY OR MORTALITY OF PATIENT MANAGEMENT PROVIDER MUST THOROUGHLY DOCUMENT EACH ELEMENT THAT IS COVERED Not available 08/07/2024 11:52:01 09/23/2024 09/23/2024 [id number] [place] [id number] (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) [facility] MODERATE MUST MEET 2 OUT OF 3 ELEMENTS: PROBLEMS, DATA OR RISK ELEMENT 1: PROBLEMS ADDRESSED 1 OR MORE CHRONIC ILLNESS WITH EXACERBATION OR 2 OR MORE STABLE CHRONIC ILLNESSES OR 1 UNDIAGNOSED NEW PROBLEM OR 1 ACUTE ILLNESS W/SYMPTOMS OR 1 ACUTE COMPLICATED INJURY ELEMENT 2: DATA MUST MEET 1 OF 3 CATEGORIES CATEGORY 1: REVIEW OF PRIOR EXTERNAL NOTES, REVIEW OF RESULTS, ORDERING OF EACH TEST, ASSESSMENT REQUIRING INDEPENDENT HISTORIAN OR CATEGORY 2: INDEPENDENT INTERPRETATION OF TESTS BY ANOTHER PHYSICIAN OR SPECIALIST OR CATEGORY 3: DISCUSSION OF MGT OR TEST INTERPRETATION W/EXTERNAL PHYSICIAN OR SPECIALIST ELEMENT 3: RISK RISK OF COMPLICATIONS AND/OR MORBIDITY OR MORTALITY OF PATIENT MANAGEMENT PROVIDER MUST THOROUGHLY DOCUMENT EACH ELEMENT THAT IS COVERED Not available 09/23/2024 14:38:31 Plan of Treatment Reminders Order Date Submit Date Provider Last Modified By Organization Details Last Modified Time Details Appointments FOLLOW UP 15 2023 11:00A M DR VALE Not available Not available Not available Lab HbA1c (hemoglob in A1c), blood 2023 024 [facility], [address] [place] [address], [id number], 02/11/2024 15:09:44 lipid panel, blood 2023 024 [facility], [address] [place] [address], [address], 02/11/2024 15:09:44 CMP, serum or plasma 2023 024 [facility], [address] [place] [address], [address], 02/11/2024 15:09:43 CMP, serum or plasma 2023 024 [facility], [address] [place], [address], 04/28/2024 14:11:32 HbA1c (hemoglob in A1c), blood 2023 024 [facility], [address] [place], [address], 02/26/2024 12:28:29 Referral dermatolo gist referral 2023 024 [facility], [address] [facility], [place], [address], 03/10/2024 11:54:51 Procedures None recorded. Surgeries None recorded. Imaging XR, hip, bilateral , 2 view 2023 024 [facility], [address] [place], [address], 09/30/2024 08:24:34 Medication Orders betametha sone dipropion ate 0.05 % topical cream 2023 024 [id number], [address] [place], [address], 02/11/2024 15:08:21 Patient TargetsNo targets recorded. Patient InstructionsNo instructions recorded. 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 [address], [address], 09/27/2024 22:21:36 Result Notes None recorded. Problems Name Problem SNOMED Code Status Onset Date Resolution Date Notes Provider Name and Address Organization Details Recorded Time Neck pain 96496348 Active 2021 Vanessa holguin [facility] 2 09:20:09 Hypertrig lyceridem ia 754119051 Active 2021 Vanessa holguin [facility] 2 09:20:16 Eczema 60527474 Active 2021 Vanessa holguin [facility] 2 09:20:21 Kidney stone 00344966 Active 2021 Vanessa holguin [facility] 2 09:20:30 Obesity 934860239 Active 2021 Vanessa holguin [facility] 2 09:20:36 Impaired fasting glycemia 938041020 Active 2021 Darrell Vale, DO [address] [facility], [place], [address], [facility] [facility] 2 14:46:54 Pain of right shoulder joint 742816725982 25656 Active 2021 Darrell Vale, DO [address] [place] [address], [address], [facility] 2 14:50:08 Pain of right knee joint 819707594259 100 Active 2021 Darrell Vale DO [address] [place] [address], [address], [facility] 2 14:50:31 Rupture of rotator cuff of right shoulder 918678758127 58857 Active 2021 Darrell Vale, DO [address] [place] [address], [address], [facility] 2 11:00:45 Injury of tendon of the rotator cuff of shoulder 507325267 Active 2021 Darrell Vale DO [address] [place] [address], [address], [facility] 2 12:30:13 Glenoid labrum tear 973851806 Active 2022 Darrell Vale DO [address] [place] [address], [address], [facility] 3 16:54:51 Glenoid labrum tear 802751563 Active 2022 Darrell Vale DO [address] [place] [address], [address], [facility] 3 16:56:27 Mass of lower limb 541505395 Active 2023 Darrell Vale DO [address] [place] [address], [address], [facility] 4 15:06:26 Sleep apnea 01647106 Active 2023 Darrell Vale DO [address] [place] [address], [address], [facility] 4 11:08:21 Pain of bilateral knee joints 197386232365 104 Active 2023 Darrell Jalloh Kirill, [address] [place], [address], [facility] 4 11:51:10 Bilateral hip joint pain 564932186208 20082 Active 2023 Darrell Jalloh Claudettesoni DO [address] [place], [address], [facility] 4 14:40:28 Problem Notes None recorded. Procedures Surgical History Date Name Laterality Status Provider Name and Address Organization Details Recorded Time 022 Corticosteroid Injection completed Darrell Vale, [address] [place], [address], [facility] 08/27/2022 11:00:26 Imaging Results Imaging Date Name Status LastModified by Organiz ation Details LastModified Time 09/25/2024 XR, hip, bilateral, 2 view completed [address], [address], 09/27/2024 22:21:36 Procedure Notes None recorded. Medical Equipment None Reported. Allergies No known drug allergies Medications Name Sig Start Date Stop Date Status Note LastModified by Organization Details LastModified Time amoxicillin 500 mg capsule TAKE 1 CAPSULE BY MOUTH THREE TIMES A DAY UNTIL GONE 08/07 completed Not Available Not Available Not Available betamethaso ne dipropionat e 0.05 % topical cream APPLY TO AFFECTED AREA TWICE A DAY active Not Available Not Available No t Available naproxen 500 mg tablet TAKE 1 TABLET BY MOUTH TWICE A DAY WITH FOOD 04/29 completed Not Available Not Available Not Available oxycodone 5 mg tablet TAKE 1-2 TABLETS BY MOUTH EVERY 4 HOURS NEEDED FOR PAIN DO NOT DRIVE WHILE TAKING THIS MEDICATIO N 04/29 completed Not Available Not Available Not Available Vitals Date Recorded Body height Body mass index (BMI) Body weight Heart rate Oxygen saturation Oxygen saturation in Arterial blood by Pulse oximetry Systolic blood pressure Diastolic blood pressure Provider Name and Address Organization Details Last Updated DateTime 4 165.1 cm 29.3 kg/m2 66230.2 6 g 83 /min 97 % 97 % 132 mm[Hg] 90 mm[Hg] Monica Patrick [facility] Internal [facility] 4 14:28:10 Date Recorded Body height Body mass index (BMI) Body weight Heart rate Oxygen saturation Oxygen saturation in Arterial blood by Pulse oximetry Systolic blood pressure Diastolic blood pressure Provider Name and Address Organization Details Last Updated DateTime 4 165.1 cm 29.1 kg/m2 14631.6 6 g 68 /min 98 % 98 % 138 mm[Hg] 80 mm[Hg] Monica Patrick [facility] 4 12:03:16 Date Recorded Body height Body mass index (BMI) Body weight Heart rate Respiratory rate Oxygen saturation Oxygen saturation in Arterial blood by Pulse oximetry Systolic blood pressure Diastolic blood pressure Provider Name and Address Organization Details Last Updated DateTime 4 165.1 cm 27.8 kg/m2 74688.9 3 g 65 /min 16 /min 97 % 97 % 128 mm[Hg] 78 mm[Hg] Manohar Leiva [facility] 4 11:43:20 Date Recorded Body height Body mass index (BMI) Body weight Heart rate Oxygen saturation Oxygen saturation in Arterial blood by Pulse oximetry Systolic blood pressure Diastolic blood pressure Provider Name and Address Organization Details Last Updated DateTime 4 165.1 cm 25.5 kg/m2 04287.6 3 g 72 /min 97 % 97 % 138 mm[Hg] 68 mm[Hg] Monica Patrick [facility] 4 10:58:51 Date Recorded Body height Body mass index (BMI) Body weight Heart rate Oxygen saturation Oxygen saturation in Arterial blood by Pulse oximetry Systolic blood pressure Diastolic blood pressure Provider Name and Address Organization Details Last Updated DateTime 4 165.1 cm 27.8 kg/m2 45606.9 3 g 77 /min 98 % 98 % 132 mm[Hg] 82 mm[Hg] Manohar Leiva [facility] 4 14:22:13 Social History Question Answer Notes LastModified by Organizat ion Details LastModified Time Tobacco Smoking Status Never Smoker Vanessa holguin [facility] 01/23/2022 09:21:08 What Is Your Level Of Alcohol Consumption? Occasional Information not available 01/23/2022 What Is Your Level Of Caffeine Consumption? Occasional Information not available 01/23/2022 What Was The Date Of Your Most Recent Tobacco Screening? 09/23/2024 [email or web address] Information not available 09/23/2024 Do You Use Any Illicit Or Recreational Drugs? No [email or web address] Information not available 01/23/2022 Sex: Unknown Functional Status None recorded. Mental Status None recorded. Family History Nothing Reported. Medical History No medical history recorded. Immunizations Vaccine Type Date Status Note Provider Nam e and Address Organization Details Recorded Time Hep B, adult 01/24/2013 completed Vanessa holguin [facility] 01/23/2022 14:58:12 Td (adult) 04/07/2011 keon holguin [facility] 01/23/2022 14:58:22 polio, unspecified formulation 01/24/2013 keon holguin [facility] 01/23/2022 14:58:34 MMR 04/04/1999 keon holguin [facility] 01/23/2022 14:58:48 Hep A, adult 01/20/2000 [facility] Vanessa holguin [facility] 01/23/2022 14:59:01 COVID-19, mRNA, LNP-S, PF, 100 mcg/0.5mL dose or 50 mcg/0.25mL dose 02/24/2021 keon holguin [facility] 01/23/2022 14:59:13 COVID-19, mRNA, LNP-S, PF, 100 mcg/0.5mL dose or 50 mcg/0.25mL dose 03/22/2021 keon holguin [facility] 01/23/2022 14:59:21 Anthrax, pre-exposure prophylaxis, post-exposure prophylaxis 11/05/2011 keon holguin [facility] 01/23/2022 14:59:38 Past Encounters Encounter ID Performer Location Encounter Start Date Encounter Closed Date Diagnosis/Indication Diagnosis SNOMED-CT Code Diagnosis ICD10 Code [id number] Darrell Vale [facility] [address] [place] [address],[place] [address] 01/23/2022 14:49:08 01/23/2022 16:51:08 Pain of right shoulder joint 3978084358 8098520 M25.511 Hyperglycemia 18649532 R 73.9 [id number] [facility] [address] [address] 02/06/2022 09:03:51 02/06/2022 12:28:10 Hyperglycemia 46779233 R73.9 Injury of tendon of the rotator cuff of shoulder 522717412 S46.001D [id number] [address] 05/08/2022 14:00:02 05/08/2022 15:10:09 Active or passive immunization 843769316 Z23 Impaired f asting glycemia 271422739 R73.01 Pain of ri ght shoulder joint 5120121682 4188513 M25.511 Pain of ri ght knee joint 0617006396 69815 M25.561 [id number] Darrell Vale [facility] [address] [address] 08/07/2022 14:41:22 08/07/2022 15:55:51 Impaired fasting glycemia 797536927 R73.01 Eczema 50295834 L30.9 Hypertriglyceridemia 302 732952 E78.2 [id number] Darrell Vale [facility] [address] [address] 08/27/2022 10:13:27 08/27/2022 11:45:14 Rupture of rotator cuff of right shoulder 9222458552 4181123 M75.101 [id number] Darrell Vale [facility] [address] [address] 10/29/2022 11:20:00 10/29/2022 13:35:10 Injury of tendon of the rotator cuff of shoulder 638214333 S46.001D [id number] Darrell Vale [facility] [address] [facility] ite [place] [facility] [place] [address] 03/19/2023 15:17:24 03/19/2023 16:41:11 Kidney stone 75184482 N20.0 [id number] Darrell Vale [facility] [address] [place] [address] [place] [address] 06/28/2023 08:06:32 06/28/2023 13:14:30 Hypertriglyceridemia 299723840 E78.2 Impaired f asting glycemia 214562294 R73.01 [id number] Darrell Vale [facility] [address] [place] [address] it[place] [address] 06/28/2023 13:23:58 07/01/2023 08:37:19 Kidney stone 06347463 N20.0 Glenoid labrum tear 2022 79703 S43.431D [id number] Darrell Vale [facility] [address] [place] [address] ite [place] [facility] [place] [address] 02/11/2024 14:20:42 02/11/2024 15:13:00 Hypertriglyceridemia 257449165 E78.2 Impaired f asting glycemia 882510484 R73.01 Eczema 43588806 L30.9 Mass of lower limb 05552 7000 R22.41 [id number] Darrell Vale [facility] [address] [place] [facility] [address] 02/26/2024 11:52:59 02/26/2024 12:30:25 Impaired fasting glycemia 770783441 R73.01 [id number] Darrell Vale [facility] [address] [place] [address] ite [place] [facility] [place] [address] 04/29/2024 11:18:39 04/29/2024 13:50:59 Hypertriglyceridemia 243425792 E78.2 Impaired f asting glycemia 835499142 R73.01 Depression screening 171 575427 Z13.31 [id number] Darrell Vale [facility] [address] [place] [address],[place] [address] 08/07/2024 10:41:27 08/07/2024 11:54:40 Hypertriglyceridemia 841122556 E78.2 Impaired f asting glycemia 274570089 R73.01 [id number] Darrell Vale, [facility] [address] [facility],[place] [address] 09/23/2024 14:12:44 09/23/2024 15:11:15 Bilateral hip joint pain 7503888619 2025872 M25.551 Health Concerns Section Related Observation LastModified by Organization Detai ls LastModified Time None Recorded Concern Status LastModified by Organization Details LastModified Time None Recorded Advance Directives Directive None Recorded Payers Encounter Date Sequence Insurance Name Policy Number Policy Mosqueda Covered Member ID Mosqueda Member ID Guarantor Name 02/11/2024 2 [facility] 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 113 Christopher A Auclair [id number] Christopher Auclair 02/26/2024 2 [facility] 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 113 Christopher A Auclair [id number] Christopher Auclair 04/29/2024 2 [place] 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 113 Christopher A Auclair [id number] Christopher Auclair 08/07/2024 1 [place] PRIOR TO 2024 - [employer] () Christopher Auclair [id number] Christopher Auclair 08/07/2024 2 [place] 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 113 Christopher A Auclair [id number] Christopher Auclair 09/23/2024 1 [place] PRIOR TO 2024 - [employer] () Christopher Auclair [id number] Christopher Auclair 09/23/2024 2 [facility] 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 113 Christopher A Auclair [id number] Christopher Auclair Notes Date Note Type Note Provider Name a nd Address Organization Details Recorded Time text/html here for rechk and relates he has had a cold since thurs or saturday and is feeling better covid negrelates has finished with dr knutson has a lump on his right hip getting bigger irritating also has itchy rash on inner right ankle and some tinea on sole Darrell Vale DO [address] [place], [address], [facility] 02/11/2024 15:09:33 4 text/html Care Management - DiabetesReported bypatient.Self Care:seeing eye doctor yearly for dilated eye exam; checking feet regularly; normal range of home blood sugars (in the low 100s); no side effects from medications Associated Symptoms:symptoms are usually well controlled; no fatigue; no dizziness; no excessive sweating; no headaches; no confusion; no increased thirst; no increased appetite; no increased urination; no blurred vision; no numbness of feet; no calluses on feet here for rechk and has developed a rashotherwise doing wellhas been eating well Darrell Vale DO [address] [place], [address], [facility] 04/29/2024 12:20:18 4 text/html here for eval and review of labhas been being more [id number] is now done to 6.3is [place] etchad a pos fit test and is going for a colonoscopyhe is relating that he has been having worsening hip and leg painhas been noticing his hips are hurting for the last few years and is getting worse Darrell Vale DO [address] [place], [address], [facility] 08/07/2024 11:52:42 4 text/html has been having issues with his hips for the past few years and has noticed it being worse as of late relates by end of dayrelates sometimes feel it in the morningibuprofen does help Darrell Vale DO [address] [place], [address], [facility] 09/23/2024 14:44:45
--- OUTSIDE RECORDS SUMMARY | 2024-11-12 09:51 | XMS_ITS | Continuity of Care Document ---
Author Organization [facility], [facility] Address [address] [place] [address] Assessment Encounter Date Assessment Date Assessment LastModified by Organization Details LastModified Time 09/23/2024 09/23/2024 [address] [place] [id number] (DIRECTOR ADULT) MDM MODERATE MUST MEET 2 OUT OF [...] Not available Not available Not available Lab None recorded . Referral None recorded . Procedures None recorded . Surgeries None recorded . Imaging XR, hip, bilatera l, 2 view 2023 024 debbie [facility], [address] [place], [address], 09/30/2024 08:24:34 Medication Orders None recorded . Patient TargetsNo targets recorded. Patient InstructionsNo instructions recorded. Reason for Referral None Reported. Results Created Date Observation Date Name Description Value Unit Range Abnormal Flag Note LastModifiedBy Organization Detail LastModifiedTime 09/25/20 24 09/25/2024 XR, hip, bilat eral, 2 view No observ ation record ed. [address], [place], [address], 09/27/2024 22:21:36 Result Notes None recorded. Problems Name Problem SNOMED Code Status Onset Date Resolution Date Notes Provider Name and Address Organization Details Recorded Time Neck pain 04723197 Active 2021 Vanessa holguin [facility] Internal [facility] 2 09:20:09 Hypertrig lyceridem ia 247387116 Active 2021 Vanessa holguin [facility] 2 09:20:16 Eczema 41613593 Active 2021 Vanessa holguin [facility] 2 09:20:21 Kidney stone 85736395 Active 2021 Vanessa holguin [facility] 2 09:20:30 Ob[facility] 554466617 [facility] Impaired fasting glycemia 930040218 Active 2021 Darrell Vale DO [address] [place] [address], [address], [facility] 2 14:46:54 Pain of right shoulder joint 124921447360 20309 Active 2021 Darrell Vale DO [address] [place] [address], [address], [facility] 2 14:50:08 Pain of right knee joint 513671778442 100 Active 2021 Darrell Vale DO [address] [place] [address], [address], [facility] 2 14:50:31 Rupture of rotator cuff of right shoulder 727004646541 00950 Active 2021 Darrell Vale DO [address] [place] [address], [address], [facility] 2 11:00:45 Injury of tendon of the rotator cuff of shoulder 122662022 Active 2021 Darrell Vale DO [address] [place] [address], [address], [facility] 2 12:30:13 Glenoid labrum tear 774394271 Active 2022 Darrell Vale DO [address] [place] [address], [address], [facility] 3 16:54:51 Glenoid labrum tear Active 2022 Darrell Vale DO [address] [place] [address], [address], [facility] 3 16:56:27 Mass of lower limb 550707343 Active 2023 Darrell Vale DO [address] [place] [address], [address], [facility] 4 15:06:26 Sleep apnea 85677081 Active 2023 Darrell Vale DO [address] [place] [address], [address], [facility] 4 11:08:21 Pain of bilateral knee joints 723057365394 104 Active 2023 Darrell Vale DO [address] [place] [address], [address], [facility] 4 11:51:10 Bilateral hip joint pain 596645485029 79417 Active 2023 Darrell Vale DO [address] [place] [address], [address], [facility] 4 14:40:28 Problem Notes None recorded. Procedures Surgical History Date Name Laterality Status Provider Name and Address Organization Details Recorded Time 022 Corticosteroid Injection completed Darrell Vale DO [address] [place] [address], [address], [facility] 08/27/2022 11:00:26 Imaging Results None recorded. Procedure Notes None recorded. Medical Equipment None [...] Updated DateTime 4 165.1 cm 27.8 kg/m2 85774.9 3 g 77 /min 98 % 98 % 132 mm[Hg] 82 mm[Hg] Manohar Leiva [facility] 4 14:22:13 Social History Question Answer Notes LastModified by Organizat ion Details LastModified Time Tobacco Smoking Status Never Smoker Vanessa holguin [facility] 01/23/2022 09:21:08 What Is Your Level [...] Hep B, adult 01/24/2013 completed Vanessa holguin [facility] 01/23/2022 14:58:12 Td (adult) 04/07/2011 keon holguin [facility] 01/23/2022 14:58:22 polio, unspecified formulation 01/24/2013 keon holguin [facility] 01/23/2022 14:58:34 MMR 04/04/1999 keon holguin [facility] 01/23/2022 14:58:48 Hep A, adult 01/20/2000 keon holguin [facility] 01/23/2022 14:59:01 COVID-19, mRNA, LNP-S, PF, 100 mcg/0.5mL dose or 50 mcg/0.25mL dose 02/24/2021 keon holguin [facility] 01/23/2022 14:59:13 COVID-19, mRNA, LNP-S, PF, 100 mcg/0.5mL dose or 50 mcg/0.25mL dose 03/22/2021 keon holguin [facility] 01/23/2022 14:59:21 Anthrax, pre-exposure prophylaxis, post-exposure prophylaxis 11/05/2011 keon holguin [facility] 01/23/2022 14:59:38 Past Encounters Encounter ID Performer Location Encounter Start Date Encounter Closed Date Diagnosis/Indication Diagnosis SNOMED-CT Code Diagnosis ICD10 Code [id number] Darrell Vale [facility] [address] [address] 09/23/2024 14:12:44 09/23/2024 15:11:15 Bilateral hip joint pain 5494605822 1760594 M25.551 Health Concerns Section Related Observation LastModified by Organization Detai ls LastModified Time None Recorded Concern Status LastModified by Organization Details LastModified Time None Recorded Payers Encounter Date Sequence Insurance Name Policy Number Policy Mosqueda Covered Member ID Mosqueda Member ID Guarantor Name 09/23/2024 1 [facility] PRIOR TO 11/25/2024 - [employer] () Tello Cagle [id number] Tello Cagle 09/23/2024 2 [employer]-[place]: 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 113 Tello Cagle [id number] Tello Cagle Notes Date Note Type Note Provider Name a nd Address Organization Details Recorded Time 4 text/html has been having issues with his hips for the past few years and has noticed it being worse as of late relates by end of dayrelates sometimes feel it in the morningibuprofen does help Darrell Vale, DO [address], [place], [address], [facility] 09/23/2024 14:44:45
[2024-11-12 11:36] LABS: Estimated Average Glucose 151 mg/dL; Hemoglobin A1C 199.0114 umol/L; Hemoglobin A1c % 6.9 % (<6.0); Total Hemoglobin (HGBA1C) 3844.6412 umol/L
[2024-11-12 11:39] LABS: Alanine Aminotransferase 32 U/L (0-40); Albumin Level 4.6 g/dL (3.5-5.0); Alkaline Phosphatase 62 U/L (39-117); Anion Gap 9 (12-20); Aspartate Amino Transferase 26 U/L (5-37); Bilirubin Total 0.4 mg/dL (0.0-1.0); Blood Urea Nitrogen 23 mg/dL (9-16); Calcium 9.3 mg/dL (8.4-10.2); Carbon Dioxide 28 mmol/L (22-29); Chloride 108 mmol/L (96-108); Cholesterol 169 mg/dL (<200); Estimated Glomerular Filt Rate > 60; Glucose Random 152 mg/dL (60-115); HDL Cholesterol 53 mg/dL (>40); LDL Cholesterol Calculated 103 mg/dL (<100); Potassium 4.2 mmol/L (3.3-5.1); Sodium 141 mmol/L (135-145); Total Protein 7.2 g/dL (6.5-8.0); Triglycerides 69 mg/dL (<150)
== END 2024-11-12 09:45 | disposition home or self-care (01) ==
LOC: HO.WFDLDS 09:44
PROVIDERS: Visit Provider Internal Medicine
DX: R73.01 Impaired fasting glucose (principal)
CPT/HCPCS: 36415; 80053; 80061; 83036

== ENCOUNTER 2025-01-22 09:32 | Outpatient (REF) | payer BC, SELFPAY ==
--- OUTSIDE RECORDS SUMMARY | 2025-01-22 10:21 | XMS_ITS ---
Author Name [facility] [place] [facility] [facility] [place] Address [address] [place] [address] Care Team Providers Care Mask Former Name Role Phone RICK LILLY Primary Care [...] BASIC SELF+ ONE Nov 27, 2020 113 [id number] Anabell SUERO R PATIENT BCBS [place] FEP PREFERRED PROVIDER ORGANIZAT ION (PPO) BASIC SELF PLUS ONE Nov 27, 2020 113 [id number] Anabell SUERO R PATIENT [employer] FEPRX PLAN PRESCRIPT ION CAREM ARK FEPRX Nov 27, 2020 [id number] Anabell SUERO R PATIENT [employer]-F EP BCBS PRESCRIPT ION FEP CAREM ARK Nov 27, 2020 [id number] [phone] AUCLAIR,C HRISTOPHE R PATIENT Selected Encounter This section includes the information on record at [place] for the Encounter. Date/Time Encounter Type Encounter Description Reason Pro vider Source Jan 18, 2025 10:32 AM Outpatient Encounter PRIMARY CARE/MEDICINE IHE Encounter Template Text not used by [place] Social History: Smoking Status (Most current) and Tobacco Use (All prior to encounter date) This section includes the most current, and the historical, smoking and tobacco- related health factors from the [place] facility where the Encounter took place. Current Smoking Status This section includes the most current smoking, or tobacco-related health factor, from the [place] facility where the Encounter took place. Date/Time Current Smoking Status Comment Facil ity Jun 19, 2024 02:14 PM VA-TOBACCO NEVER USED [facility] Encounter Notes: All associated encounter notes This section contains the clinical notes associated to the Encounter. Date/Time Encounter Note(s) Provider Source Jan 18, 2025 10:32 AM ADMINISTRATIVE NOTE: LOCAL TITLE: ADMINISTRATIVE NOTE STANDARD TITLE: ADMINISTRATIVE NOTE DATE OF NOTE: JAN 18, 2025@10:32 ENTRY DATE: JAN 18, 2025@10:32:44 AUTHOR: SAI THOMAS EXP COSIGNER: URGENCY: STATUS: COMPLETED stopped in with reponse to letter received. did drop of letter ref to his dental hygiene. not looking for a cpap at the moment but would like to discuss other options available. /mony/ SAI THOMAS LEAD FACILITY ATTENDANT Signed: 01/18/2025 10:33 Receipt Acknowledged By: * AWAITING SIGNATURE * [facility] LOPEZ [facility]
--- OUTSIDE RECORDS SUMMARY | 2025-01-22 10:21 | XMS_ITS ---
Author Name [facility] [place] [facility] [place] [facility] [place] Address [address] [place] [address] Care Team Providers Care Sanitarian Name Role Phone RICK LILLY Primary Care [...] Name Patient's Relationship to Policy Mosqueda TRACY [facility] FEDERAL PREFERRED PROVIDER ORGANIZAT ION (PPO) BASIC SELF+ ONE Nov 27, 2020 113 [id number] [phone] Anabell SUERO PATIENT BCBS [place] FEP PREFERRED PROVIDER ORGANIZAT ION (PPO) BASIC SELF PLUS ONE Nov 27, 2020 113 [id number] Anabell SUERO R PATIENT [employer] FEPRX PLAN PRESCRIPT ION CAREM ARK FEPRX Nov 27, 2020 [id number] [phone] Anabell SUERO R PATIENT [employer]ARK-F EP BCBS PRESCRIPT ION FEP CAREM ARK Nov 27, 2020 [id number] Anabell SUERO PATIENT Selected Encounter This section includes the information on record at [place] for the Encounter. Date/Time Encounter Type Encounter Description Reason Provider Source Dec 28, 2024 10:00 AM PSYTX W PT 30 MINUTES ACTIVE DUTY SEXUAL TRAUMA ICD-10-CM F41.9 Anxiety disorder, unspecified SA STACY JARRELLA IHMayi Encounter Template Text not used by [place] Assessments - Encounter Diagnoses This section includes the primary and secondary diagnoses documented for the Encounter. Date/Time Primary/Secondary Diagnosis Diagnosis Name Provider Source Dec 28, 2024 10:41 AM PRIMARY Anxiety disorder, unspecified SA FRANCINE JARRELL [facility] Plan of Treatment: Future Appointments (+ 6 months) and Future Tests (+/- 45 days) The Plan of Treatment section includes future care activities for the patient from all [place] treatmentfacilities. This section includes future appointments and future orders which are active, pending or scheduled. Future Appointments This section includes appointments that were scheduled to occur 6 months from the date of the Encounter, up to a maximum of 20 appointments. The data comes from all [place] treatment facilities. Appointment Date/Time Appointment Type Appointme nt Facility Name Jan 18, 2025 10:00 AM AMBULATORY - PSYCHIATRY [facility] Social History: Smoking Status (Most current) [...] 2024 02:14 PM VA-TOBACCO NEVER USED [facility] Encounter Notes: All associated encounter notes This section contains the clinical notes associated to the Encounter. Date/Time Encounter Note(s) Provider Source Dec 28, 2024 10:36 AM PSYCHOLOGY NOTE: LOCAL TITLE: PSYCHOLOGY NOTE STANDARD TITLE: PSYCHOLOGY NOTE DATE OF NOTE: DEC 28, 2024@10:36 ENTRY DATE: DEC 28, 2024@10:38:10 AUTHOR: ALISA JARRELL COSIGNER: URGENCY: STATUS: COMPLETED Cranial Electrotherapy Stimulation - 2nd session Duration: 30 minutes Session Focus: met with this financial writer for 30-minutes for his second alpha- stim session to address symptoms of anxiety, depression and sleep disturbance. DSM-5 DIAGNOSES: Anxiety Disorder, Unspecified MENTAL STATUS AND BEHAVIORAL OBSERVATIONS: arrived to the appointment on time and was dressed appropriate to context. Madison was oriented x4, and his thought process was linear, logical, and coherent. He described his mood as euthymic and his affect was expressive, stable, and consistent with stated mood. Speech and motor activity fell within normal limits. Madison was polite, cooperative, and engaged. Madison denied suicidal and homicidal ideation, plan, and intent. Patient report: Jose noticed that it was easier to return to sleep during middle of the night awakenings this week. He did not notice any change on his mood and anxiety. Madison reported he is worried about his dog, Rose Marie, who hasn't been feeling well. Intervention: 20-min alpha stim session- LEVEL 2.5 on the unit. Madison has to have a trial of 3 sessions with some effect before we can submit an order for his own personal device through [facility]. Patient's response to intervention: tingling sensation, some dizziness, no other reported symptoms or response Plan: Next two sessions scheduled with me: Saturday 10:00 on 01/04. has to have a trial of 3 sessions with some effect before we can submit an order for his own personal device through the [facility]. /mony/ Alisa Jarrell Psy.D. SEXUAL TRAUMA/WOMEN'S PSYCHOLOGIST Signed: 12/28/2024 10:42 ALISA JARRELL [place] [facility]
--- OUTSIDE RECORDS SUMMARY | 2025-01-22 10:21 | XMS_ITS | Encounter Summary ---
Author Name [facility] [place] [facility] [place] [facility] [place] Address [address] [place] [address] Care Team Providers Care Inside Sales Director Name Role Phone RICK LILLY Primary Care [...] Name Patient's Relationship to Policy Mosqueda TRACY [facility] FEDERAL PREFERRED PROVIDER ORGANIZAT ION (PPO) BASIC SELF+ ONE Nov 27, 2020 113 [id number] Anabell SUERO PATIENT BCBS [place] FEP PREFERRED PROVIDER ORGANIZAT ION (PPO) BASIC SELF PLUS ONE Nov 27, 2020 113 [id number] Anabell SUERO R PATIENT [employer] FEPRX PLAN PRESCRIPT ION CAREM ARK FEPRX Nov 27, 2020 [id number] Anabell SUERO R PATIENT [employer]-F EP BCBS PRESCRIPT ION FEP CAREM ARK Nov 27, 2020 [id number] Anabell SUERO PATIENT Selected Encounter This section includes the information on record at [place] for the Encounter. Date/Time Encounter Type Encounter Description Reason Provider Source Dec 21, 2024 11:00 AM PSYTX W PT 30 MINUTES ACTIVE DUTY SEXUAL TRAUMA ICD-10-CM F41.9 Anxiety disorder, unspecified SA FRANCINE JARRELL IHMayi Encounter Template Text not used by [place] Assessments - Encounter Diagnoses This section includes the primary and secondary diagnoses documented for the Encounter. Date/Time Primary/Secondary Diagnosis Diagnosis Name Provider Source Dec 21, 2024 03:37 PM PRIMARY Anxiety disorder, unspecified SA FRANCINE [facility] Plan of Treatment: Future Appointments (+ 6 months) and Future Tests (+/- 45 days) The Plan of Treatment section includes future care activities for the patient from all [place] treatmentfacilities. This section includes future appointments and future orders which are active, pending or scheduled. Future Appointments This section includes appointments that were scheduled to occur 6 months from the date of the Encounter, up to a maximum of 20 appointments. The data comes from all [place] treatment facilities. Appointment Date/Time Appointment Type Appointme nt Facility Name Dec 28, 2024 10:00 AM AMBULATORY - PSYCHIATRY [facility] Jan 18, 2025 10:00 AM AMBULATORY PSYCHIATRY [facility] Social History: Smoking Status (Most current) and Tobacco Use (All prior to encounter date) This section includes the most current, and the historical, smoking and tobacco- related health factors from the [place] facility where the Encounter took place. Current Smoking Status This section includes the most current smoking, or tobacco-related health factor, from the [place] facility where the Encounter took place. Date/Time Current Smoking Status Comment Facil ity Jun 19, 2024 02:14 PM [facility]TO[facility]ACCO [facility] Encounter Notes: All associated encounter notes This section contains the clinical notes associated to the Encounter. Date/Time Encounter Note(s) Provider Source Dec 21, 2024 02:18 PM MENTAL HEALTH CONSULT: LOCAL TITLE: CONSULT REPORT/CRANIAL ELECTROTHERAPY STIMULATION STANDARD TITLE: MENTAL HEALTH CONSULT DATE OF NOTE: DEC 21, 2024@14:18 ENTRY DATE: DEC 21, 2024@14:18:24 AUTHOR: LISA JARRELL EXP COSIGNER: URGENCY: STATUS: COMPLETED Cranial Electrotherapy Stimulation Session 1: Duration: 30 minutes met with this sign writer letterer or painter for 30 minutes for initial alpha-stim session to address symptoms anxiety and depression, per consult from Dr. Miley Goldstein. confirmed that he does not currently have any of the following: pacemaker, cochlear implant, deep brain stimulator, vagal nerve stimulator, spinal stimulator, and/or defibrillator. was provided the rationale for alpha-stim. This provider reviewed the protocol for alpha-stim trial, and common reactions to the device. DSM-5 DIAGNOSES: Anxiety Disorder, Unspecified MENTAL STATUS AND BEHAVIORAL OBSERVATIONS: Hanover arrived to the appointment on time and was dressed appropriate to context. was oriented x4, and his thought process was linear, logical, and coherent. He described his mood as euthymic and his affect was expressive, stable, and consistent with stated mood. Speech and motor activity fell within normal limits. Hanover was polite, cooperative, and engaged. denied suicidal and homicidal ideation, plan, and intent. Patient report: Hanover reported that he has struggled with anxiety, depression and insomnia for some time. He expressed hope that alpha stim will assist with reducing anxiety and improving sleep. is currently waiting to be assigned a therapist at the [facility]. was provided information about CBT-I, an evidence based treatment for insomnia disorder. Intervention: 20-min alpha stim session- LEVEL 2.5 on the unit. Patient's response to intervention: tapping sensation, no other notable differences. Plan: Next two sessions scheduled with me: Saturday 10:00 on 12/28 and 01/04. Hanover has to have a trial of 3 sessions with some effect before we can submit an order for his own personal device through the [facility]. /mony/ Lisa Jarrell Psy.D. SEXUAL TRAUMA/WOMEN'S PSYCHOLOGIST Signed: 12/21/2024 15:37 LISA JARRELL [place] [facility]
--- OUTSIDE RECORDS SUMMARY | 2025-01-22 10:21 | XMS_ITS ---
Author Name [facility] [place] Organization [place] Address [address] [place] [address] Care Team Providers Care Golf Cart Assembler Name Role Phone TOM WILKINS Primary Care [...] Name Patient's Relationship to Policy Mosqueda TRACY [facility] FEDERAL PREFERRED PROVIDER ORGANIZAT ION (PPO) BASIC SELF+ ONE Nov 27, 2020 113 [id number] Anabell SUERO PATIENT BCBS [place] FEP PREFERRED PROVIDER ORGANIZAT ION (PPO) BASIC SELF PLUS ONE Nov 27, 2020 113 [id number] Anabell SUERO PATIENT [employer] FEPRX PLAN PRESCRIPT ION CAREM ARK FEPRX Nov 27, 2020 [id number] [phone] Anabell SUERO R PATIENT [employer]ARK-F EP BCBS PRESCRIPT ION FEP CAREM ARK Nov 27, 2020 [id number] [phone] Anabell SUERO PATIENT Selected Encounter This section includes the information on record at [place] for the Encounter. Date/Time Encounter Type Encounter Description Reason Pro vider Source Dec 30, 2024 11:00 AM Outpatient Encounter ADMIN PAT ACTIVTIES (MASNONCT) IHE Encounter Template Text not used by [place] Plan of Treatment: Future Appointments (+ 6 [...] 18, 2025 10:00 AM AMBULATORY - PSYCHIATRY [facility] Social History: Smoking Status (Most [...] 19, 2024 02:14 PM VA-TOBACCO NEVER USED [facility] Encounter Notes: All associated encounter notes This section contains the clinical notes associated to the Encounter. Date/Time Encounter Note(s) Provider Source Dec 30, 2024 11:31 AM ADDENDUM: LOCAL TITLE: Addendum STANDARD TITLE: ADDENDUM DATE OF NOTE: DEC 30, 2024@11:31:26 ENTRY DATE: DEC 30, 2024@11:31:26 AUTHOR: JESSICA HECK EXP COSIGNER: URGENCY: STATUS: COMPLETED Per RN note 12/10, Vet desired to have additional testing done in the community under his private insurance. He was then going to provide results to PCP for action. T/C to Vet. He reports that he reviewed results with his community PCP Dr. Roy, additional testing was not needed. Vet interested in treatment for SA however would like options other than CPAP. Will alert PCP to request. /mony/ Jessicadelilah MACHADO RN CNL Primary Care RN Signed: 12/30/2024 11:38 Receipt Acknowledged By: 12/30/2024 13:58 /es/ Tom Wilkins PA-C STAFF PHYSICIAN KENO CLERK === --- Original Document --- 12/30/24 CCC: SCHEDULING ADMINISTRATION: Patient Demographics Patient Name: GEORGE SUERO Patient Primary Phone: [phone] Patient Primary Address: [address] [place] [address] Patient : 1970 Patient Age: 54 Caller/Recipient Relation to Patient: Self Caller Name: GEORGE SUERO Administrative Administrative Note Reason: Other Administrative Note Comments: asking for call back to discuss if he has other options rather than a cpap machine to use. He can be reached at [phone]. IMPORTANT: This note was created by [facility] Clinical Contact Center staff. Please do not alert the staff member by adding them as a signer for future communications. Alerts are not monitored by this user. /mony/ Becca DOYLE 1 [facility] Signed: 12/30/2024 11:00 Receipt Acknowledged By: 12/30/2024 11:32 /es/ Jessica MACHADO RN CNL Primary Care RN for CESAR Dos Santos DALEKARLA * AWAITING SIGNATURE * GEORGE MOSELEY MELISSA [place] [facility] [place] [facility] Dec 30, 2024 11:00 AM ADMINISTRATIVE NOTE: LOCAL TITLE: CCC: SCHEDULING ADMINISTRATION STANDARD TITLE: ADMINISTRATIVE NOTE DATE OF NOTE: DEC 30, 2024@11:00:41 ENTRY DATE: DEC 30, 2024@11:00:41 AUTHOR: BECCA ENRIQUEZ COSIGNER: URGENCY: STATUS: COMPLETED CCC: SCHEDULING ADMINISTRATION Has ADDENDA Patient Demographics Patient Name: GEORGE SUERO Patient Primary Phone: [phone] Patient Primary Address: [address] [place] [address] Patient : 1970 Patient Age: 54 Caller/Recipient Relation to Patient: Self Caller Name: GEORGE SUERO Administrative Administrative Note Reason: Other Administrative Note Comments: [place] asking for call back to discuss if he has other options rather than a cpap machine to use. He can be reached at [phone]. IMPORTANT: This note was created by [facility] Clinical Contact Center staff. Please do not alert the staff member by adding them as a signer for future communications. Alerts are not monitored by this user. /es/ Becca DOYLE 1 [facility] Signed: 12/30/2024 11:00 Receipt Acknowledged By: 12/30/2024 11:32 /es/ Jessica MACHADO RN CNL Primary Care RN for CESAR Dos Santos DALEKARLA 12/31/2024 08:08 /es/ GEORGE MOSELEY LPN 12/30/2024 ADDENDUM STATUS: COMPLETED Per RN note 12/10, Vet desired to have additional testing done in the community under his private insurance. He was then going to provide results to PCP for action. T/C to Vet. He reports that he reviewed results with his community PCP Dr. Roy, additional testing was not needed. Vet interested in treatment for SA however would like options other than CPAP. Will alert PCP to request. /es/ Jessica MACHADO RN CNL Primary Care RN Signed: 12/30/2024 11:38 Receipt Acknowledged By: 12/30/2024 13:58 /es/ Tom Wilkins PA-C STAFF PHYSICIAN KENO CLERK BECCA ENRIQUEZ [facility]
--- OUTSIDE RECORDS SUMMARY | 2025-01-22 10:21 | XMS_ITS | Encounter Summary ---
Author Name [facility] Organization [facility] [place] Address [address] [place] [address] Care Team Providers Care Director Wholesale Name Role Phone RICK WILKINS Primary Care [...] BASIC SELF+ ONE Nov 27, 2020 113 [id number] [phone] Anabell SUERO R PATIENT BCBS [place] FEP PREFERRED PROVIDER ORGANIZAT ION (PPO) BASIC SELF PLUS ONE Nov 27, 2020 113 [id number] [phone] Anabell SUERO R PATIENT [employer] FEPRX PLAN PRESCRIPT ION CAREM ARK FEPRX Nov 27, 2020 [id number] Anabell SUERO R PATIENT [employer]EMARK-F EP BCBS PRESCRIPT ION FEP CAREM ARK Nov 27, 2020 [id number] Anabell SUERO PATIENT Selected Encounter This section includes the information on record at [place] for the Encounter. Date/Time Encounter Type Encounter Description Reason Provider Source Nov 11, 2024 09:00 AM OFFICE O/P EST MOD 30 MIN PRIMARY CARE/MEDICINE ICD-10-CM K92.1 OSMIN Goins AM F IHE Encounter Template Text not used by [place] Assessments - Encounter Diagnoses This section includes the primary and secondary diagnoses documented for the Encounter. Date/Time Primary/Secondary Diagnosis Diagnosis Name Provider Source Dec 07, 2024 03:35 PM PRIMARY OCTAVIANO Goins [facility] Plan of Treatment: Future Appointments (+ 6 months) and Future Tests (+/- 45 days) The Plan of Treatment section includes [facility] care [facility] the [facility] [place] [facility] This section includes future appointments and future orders which are active, pending or scheduled. Future Appointments This section includes appointments that were scheduled to occur 6 months from the date of the Encounter, up to a maximum of 20 appointments. The data comes from all [place] treatment facilities. Appointment Date/Time Appointment Type Appointme nt Facility Name Dec 21, 2024 11:00 AM AMBULATORY - PSYCHIATRY [facility] Dec 28, 2024 10:00 AM AMBULATORY PSYCHIATRY [facility] Jan 18, 2025 10:00 AM AMBULATORY PSYCHIATRY [facility] Vital Signs: All taken on the encounter date This section contains inpatient and outpatient Vital Signs collected on the date of the Encounter. Date/Time Temperature Pulse Blood Pressure Respiratory Rate SP02 Pain Height Weight Body Mass Index Source Nov 11, 2024 08:59 AM 98.3 71 134/91 20 98 3 67 167 26 [facility] Social History: Smoking Status (Most current) [...] 19, 2024 02:14 PM VA-TOBACCO [facility] Encounter Notes: All associated encounter notes This section contains the clinical notes associated to the Encounter. Date/Time Encounter Note(s) Provider Source Dec 30, 2024 01:51 PM LETTERS: LOCAL TITLE: PATIENT LETTER (B) STANDARD TITLE: LETTERS DATE OF NOTE: DEC 30, 2024@13:51 ENTRY DATE: DEC 30, 2024@13:51:54 AUTHOR: RICK WILKINS COSIGNER: URGENCY: STATUS: COMPLETED The following letter was mailed to GEORGE SUERO on DEC 30, 2024 GEORGE SUERO [address], [place] [address] DEC 30, 2024 Dear GEORGE Mcdonnell, : Oct Per your recent discussion of sleep apnea with our nurse. Options for mild sleep apnea include: We could order cpap if you would like to try therapy with this. Or do not sleep on one's back and maximize treatment of any allergies/asthma. One can use a pillow behind the back as a prompt to stay off one's back while asleep. A dental device might be an option as well. If you are interested in this, have your dentist fax me a letter stating that your dentition is stable at this time (no forseeable needs). Then I can refer you to our dental team here to consider fitting/ordering a mandibular advancement device. Other options such as the 'Inspire' implant you have no doubt heard of on advertising are invasive and at the bottom of my list to consider. Moreso since you have mild sleep apnea My advice is do not sleep on your back and take an antihistamine tab such as loratidine before bedtime. Below are your pending appointments at the [facility]: 01/04/2025 10:00 CWM/NO/MST/[id number] 11/08/2025 08:00 CWM/NO/PACT 3 If you have questions, please contact me through our Telephone Advice Program at: [phone] extension [phone] or [phone] extension [phone] (toll free in this region only). Sincerely, Rick Wilkins PA-C [facility] [address] [place] [address] Ex RICK WILKINS [place] [facility] [place] [facility] Nov 11, 2024 11:14 AM ADDENDUM: LOCAL TITLE: Addendum STANDARD TITLE: ADDENDUM DATE OF NOTE: NOV 11, 2024@11:14:31 ENTRY DATE: NOV 11, 2024@11:14:32 AUTHOR: RICK WILKINS EXP COSIGNER: URGENCY: STATUS: COMPLETED Depression? Declines f/u with DR Goldstein for now. Tells me that he is pending in [facility] [place] [facility] which is closer to home. I ask if he means the 's center, but he is sure it is [facility]' I will share with Dr Goldstein, so that she is not expecting fu from him. /mony/ Rick Wilkins PA-C STAFF PHYSICIAN SECONDARY SPECIAL EDUCATION TEACHER Signed: 11/11/2024 11:14 Receipt Acknowledged By: 11/11/2024 11:19 /es/ IMAN GOLDSTEIN, PhD STAFF PSYCHOLOGIST --- Original [...] the followin. Exposure to potentially hazardous substance ([facility] [id number]) Entered automatically through [employer] Problem List documentation [...] he is pending in [facility] [place] [facility] which is closer to home. [...] visit. /mony/ Rick Wilkins PA-C STAFF PHYSICIAN SECONDARY SPECIAL EDUCATION TEACHER Signed: 11/11/2024 09:33 RICK WILKINS [place] [facility] [place] [facility] Nov 11, 2024 09:25 AM PHYSICIAN SECONDARY SPECIAL EDUCATION TEACHER NOTE: LOCAL TITLE: SHAILESH NOTE STANDARD TITLE: PHYSICIAN SECONDARY SPECIAL EDUCATION TEACHER NOTE DATE OF NOTE: NOV 11, 2024@09:25 ENTRY DATE: NOV 11, 2024@09:25:50 AUTHOR: RICK WILKINS EXP COSIGNER: URGENCY: STATUS: COMPLETED PA NOTE Has ADDENDA CC/HPI/A/P: 53 year old [...] the followin. Exposure to potentially hazardous substance ([facility] [id number]) Entered automatically through [employer] Problem List documentation program 2. Hearing loss [...] he is pending in [facility] [place] [facility] which is closer to home. I [...] discussion. Discussed revisiting at a future visit. /es/ Rick Wilkins PA-C STAFF PHYSICIAN SECONDARY SPECIAL EDUCATION TEACHER Signed: 11/11/2024 09:33 11/11/2024 ADDENDUM STATUS: COMPLETED Depression? Declines f/u with DR Goldstein for now. Tells me that he is pending in [facility] [place] [facility] which is closer to home. I ask if he means the 's center, but he is sure it is [facility]' I will share with Dr Goldstein, so that she is not expecting fu from him. /es/ Rick Wilkins PA-C STAFF PHYSICIAN SECONDARY SPECIAL EDUCATION TEACHER Signed: 11/11/2024 11:14 Receipt Acknowledged By: 11/11/2024 11:19 /es/ IMAN GOLDSTEIN, PhD STAFF PSYCHOLOGIST RICK WILKINS [place] [facility] [place] [facility] Nov 11, 2024 09:02 AM PREVENTIVE MEDICINE NURSING NOTE: LOCAL TITLE: CLINICAL REMINDERS/NURSING STANDARD TITLE: PREVENTIVE MEDICINE NURSING NOTE DATE OF NOTE: NOV 11, 2024@09:02 ENTRY DATE: NOV 11, 2024@09:02:15 AUTHOR: JAVAN MARTINS COSIGNER: URGENCY: STATUS: COMPLETED RHS Screen: RHS Screen [...] full rights to use it throughout the [place] system. PRIMARY SCREEN RESULT: The Primary Screen is NEGATIVE. The individual answered never to all forms of IPV above (i.e., answered never to all 5 items) The individual accepts education and/or resources: No EDUCATION: Other: not interested at this time // Javan Martins, Health Pinking Machine Operator SENIOR RESEARCH MANAGER,PRIMARY CARE Signed: 11/11/2024 09:03 JAVAN MARTINS [facility]
--- OUTSIDE RECORDS SUMMARY | 2025-01-22 10:21 | XMS_ITS ---
Author Name [facility] [place] [facility] [place] [facility] [place] [facility] [place] Address [address] [place] [address] Care Team Providers Care Shutdown Coordinator Name Role Phone RICK LILLY Primary [...] Name Patient's Relationship to Policy [place]eda TRACY [facility] FEDERAL PREFERRED PROVIDER ORGANIZAT ION (PPO) BASIC SELF+ ONE Nov 27, 2020 113 [id number] [phone] Anabell SUERO PATIENT BCBS [place] FEP PREFERRED PROVIDER ORGANIZAT ION (PPO) BASIC SELF PLUS ONE Nov 27, 2020 113 [id number] Anabell SUERO R PATIENT [employer] FEPRX PLAN PRESCRIPT ION CAREM ARK FEPRX Nov 27, 2020 [id number] Anabell SUERO R PATIENT [employer]-F EP BCBS PRESCRIPT ION FEP CAREM ARK Nov 27, 2020 [id number] Anabell SUERO PATIENT Selected Encounter This section includes the information on record at [place] for the Encounter. Date/Time Encounter Type Encounter Description Reason Provider Source Jan 18, 2025 10:00 AM PSYTX W PT 30 MINUTES ACTIVE DUTY SEXUAL TRAUMA ICD-10-CM F41.9 Anxiety disorder, unspecified JAYSA FRANCINE [place] E Encounter Template Text not used by [place] Assessments - Encounter Diagnoses This section includes the primary and secondary diagnoses documented for the Encounter. Date/Time Primary/Secondary Diagnosis Diagnosis Name Provider Source Jan 18, 2025 04:12 PM PRIMARY Anxiety disorder, unspecified CHRYSTAL FRANCINE [facility] Social History: Smoking Status (Most current) [...] 19, 2024 02:14 PM VA-TOBACCO NEVER USED [facility] Encounter Notes: All associated encounter notes This section contains the clinical notes associated to the Encounter. 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 DSM-5 DIAGNOSES: Anxiety Disorder, Unspecified MENTAL STATUS AND BEHAVIORAL OBSERVATIONS: arrived to the appointment on time and was dressed appropriate to context. was oriented x4, and his thought process was linear, logical, and coherent. He described his mood as euthymic and his affect was expressive, stable, and consistent with stated mood. Speech and motor activity fell within normal limits. was polite, cooperative, and engaged. denied suicidal and homicidal ideation, plan, and intent. Intervention: 20-min alpha stim session- LEVEL 3 on the unit. Patient's response to intervention: Hollie reported that his sleep has improved since starting alpha stim. He noticed that he falls asleep quicker if he wakes up in the middle of the night, resulting in better quality sleep. [place] shared he was recently diagnosed with sleep apnea as well, but is less tired than he was pre-alpha stim. [place] has not noticed positive impact on mood. Plan: Hollie has completed three trial sessions with some positive effect, as evidenced by self report. Consult submitted for order of Alpha-Stim through [facility] to be picked up upon discharge. Hollie was also provided a handout with instructions on how to utilize his alpha-stim device safely and efficiently. Hollie's therapeutic level is a 3 on the device. He should utilize the device daily for 20 minutes for 3 weeks to start[address] NOT DRIVE WHILE USING DEVICE. Always complete a session; do not stop partway through or severe drowsiness could result. Do not use right before bed, as you may feel energized. /mony/ Lisa Jarrell Psy.D. SEXUAL TRAUMA/WOMEN'S PSYCHOLOGIST Signed: 01/18/2025 16:12 LISA JARRELL [facility]
--- OUTSIDE RECORDS SUMMARY | 2025-01-22 10:21 | XMS_ITS | Continuity of Care Document ---
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 Role Phone [facility] Unavailable Unavailable Problems Combined list of problems [...] HCS Exposure to potentially hazardous substance (SCT [id number]) Active Condition Aug 12 Entered By: FUENTES LEW Comment: Entered automatically through TANIA Problem List documentation program [facility] Glenoid labrum tear Active Condition [facility] Hearing loss Active Condition Jun 22, 2024 Entered By: REGGIE GERMAIN Comment: Bilateral [facility] Hematochezia (SCT [id number]) Active Condition [facility] [...] DoD urethritis Inactive Condition DoD Diagnosis: ICD-10-CM F41.9 Anxiety disorder, unspecified Active Diagnosis [facility] Diagnosis: ICD-10-CM Z71.9 Counseling, unspecified Active Diagnosis [facility] Diagnosis: ICD-10-CM G47.30 Sleep apnea, unspecified Active Diagnosis [facility] Diagnosis: ICD-10-CM K92.1 Melena Active Diagnosis [facility] [place] [facility] Diagnosis: ICD-10-CM G47.33 Obstructive sleep apnea (adult) (pediatric) Active Diagnosis [facility] [place] [facility] Diagnosis: ICD-10-CM R06.83 Snoring Active Diagnosis [facility] ([id number]) Diagnosis: ICD-10-CM F32.A Depression, unspecified Active Diagnosis [facility] [place] [facility] Diagnosis: ICD-10-CM M54.2 Cervicalgia Active Diagnosis [facility] [place] [facility] Diagnosis: ICD-10-CM Z02.89 Encounter for other administrative examinations Active Diagnosis [facility] [place] [facility] Diagnosis: ICD-10-CM Z71.89 Other specified counseling Active Diagnosis [facility] [place] [facility] Diagnosis: ICD-10-CM F43.9 Reaction to severe stress, unspecified Active Diagnosis [facility] [place] [facility] Diagnosis: ICD-10-CM F43.10 Post-traumatic stress disorder, unspecified Active Diagnosis [facility] [place] [facility] Diagnosis: ICD-10-CM L30.9 Dermatitis, unspecified [facility] Allergies, Adverse Reactions, Alerts Combined list of [...] Site Reaction Lot Number CVX Code 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 Comments Source influenza virus vaccine, inactivated 2023 SIDRA Castano gilmar, left (delt oid) [id number] [employer] complet ed influenza virus vaccine, inactivat ed 09/27/24 Given [id number] MDG INFLUENZA, UNSPECIFIED FORMULATION 2022 88 complet ed [facility] Influenza, injectable, quadrivalent, preservative free 0 2021 [id number] 150 [facility] (SKB) complet ed Influenza , injectabl e, quadrival ent, preservat kenneth free DoD tetanus, diphtheria, acellular pertu is 2020 [id number] 115 sanofi pasteur complet ed tetanus, diphtheri a, acellular pertussis 09/29/21 Given Ambulat ory Pharmac y TDAP 2020 115 complet ed tetanus, diphtheri a, acellular pertussis Lot#: [id number] [facility] tetanus toxoid, reduced diphtheria toxoid, and acellular pertu is vaccine, adsorbed 1 2020 [id number] 115 Sanofi Pasteur ([facility]) complet ed tetanus toxoid, reduced diphtheri a toxoid, and acellular pertussis vaccine, adsorbed DoD influenza, injectable, quadrivalent 2020 [id number] 158 GlaxoSmithKli ne complet ed influenza , injectabl e, quadrival ent 09/10/21 Given Ambulat ory Pharmac y influenza, injectable, quadrivalent, contains preservative 10 2020 [id number] 158 [facility] (SKB) complet ed influenza , injectabl e, quadrival ent, contains preservat kenneth DoD COVID Vaccine Moderna 2020 [id number] 207 complet ed COVID Vaccine Moderna 03/22/21 Given Ambulat ory Pharmac y SARS-COV-2 (COVID-19) vaccine, mRNA, spike protein, LNP, preservative free, 100 mcg or 50 mcg dose 2 2020 [id number] 207 Moderna [employer](SPG[employer] Inc. (MOD) complet ed SARS-COV- 2 (COVID-19 ) vaccine, mRNA, spike protein, LNP, preservat kenneth free, 100 mcg or 50 mcg dose DoD COVID Vaccine Moderna 2020 [id number] 207 complet ed COVID Vaccine Moderna 02/24/21 Given Ambulat ory Pharmac y COVID-19 (MODERNA), MRNA, LNP-S, PF, 100 MCG/0.5ML DOSE OR 50 MCG/0.25ML DOSE 2020 207 complet ed SARS-COV- 2 (COVID-19 ) vaccine, mRNA, spike protein, LNP, preservat kenneth free, 100 mcg or 50 mcg dose Lot#: [id number] [facility]: [facility] SARS-COV-2 (COVID-19) vaccine, mRNA, spike protein, LNP, preservative free, 100 mcg or 50 mcg dose 1 2020 [id number] 207 [employer]. (MOD) complet ed SARS-COV- 2 (COVID-19 ) vaccine, mRNA, spike protein, LNP, preservat kenneth free, 100 mcg or 50 mcg dose DoD COVID Vaccine Pfizer 2020 [id number] 208 PFIZER complet ed COVID Vaccine Pfizer 12/14/20 Given Ambulat ory Pharmac y COVID-19 (PFIZER), MRNA, LNP-S, PF, 30 MCG/0.3 ML DOSE 2 2020 208 complet ed SARS-COV- 2 (COVID-19 ) vaccine, mRNA, spike protein, LNP, preservat kenneth free, 30 mcg/0.3mL dose Lot#: [id number] Mfr: [employer], [facility] SARS-COV-2 (COVID-19) vaccine, mRNA, spike protein, LNP, preservative free, 30 mcg/0.3mL dose 2 2020 [id number] 208 Pfizer, Inc (PFR) complet ed SARS-COV- 2 (COVID-19 ) vaccine, mRNA, spike protein, LNP, preservat kenneth free, 30 mcg/0.3mL dose DoD COVID Vaccine Pfizer 2019 [id number] 208 PFIZER complet ed COVID Vaccine Pfizer 11/23/20 Given Ambulat ory Pharmac y COVID-19 (PFIZER), MRNA, LNP-S, PF, 30 MCG/0.3 ML DOSE 1 2019 208 complet ed SARS-COV- 2 (COVID-19 ) vaccine, mRNA, spike protein, LNP, preservat kenneth free, 30 mcg/0.3mL dose Lot#: [id number] Mfr: PFIZER, INC [facility] SARS-COV-2 (COVID-19) vaccine, mRNA, spike protein, LNP, preservative free, 30 mcg/0.3mL dose 1 2019 [id number] 208 Pfizer, Inc (PFR) complet ed SARS-COV- 2 (COVID-19 ) vaccine, mRNA, spike protein, LNP, preservat kenneth free, 30 mcg/0.3mL dose DoD influenza, injectable, quadrivalent- pf 2019 [id number] 150 Seqirus complet ed influenza , injectabl e, quadrival ent-pf 10/18/20 Given Ambulat ory Pharmac y Influenza, injectable, quadrivalent, preservative free 1 2019 [id number] 077 150 Seqirus (SEQ) complet ed Influenza , injectabl e, quadrival ent, preservat kenneth free DoD influenza, injectable, quadrivalent- pf 2018 [id number] 520 150 Se[employer]irus complet ed influenza , injectabl e, quadrival ent-pf 08/28/19 Given Ambulat ory Pharmac y Influenza, injectable, quadrivalent, preservative free 22 2018 [id number] 520 150 Seqirus (SEQ) complet ed Influenza , injectabl e, quadrival ent, preservat kenneth free DoD influenza, injectable, quadrivalent 2017 [id number] 158 Se[employer]irus complet ed influenza , injectabl e, quadrival ent 10/25/18 Given Ambulat ory Pharmac y influenza, injectable, quadrivalent, contains preservative 21 2017 [id number] 158 Se[employer]irus (SEQ) comple t ed influenza , injectabl e, quadrival ent, contains preservat kenneth DoD typhoid Vi capsular polysaccharid e vac 2017 [id number] 101 sanofi pasteur complet ed typhoid Vi capsular polysacch aride vac 03/29/18 Given Ambulat ory Pharmac y TYPHOID, VICPS 2017 101 complet ed typhoid Vi capsular polysacch aride vaccine Lot#: [id number] Mfr: SANOFI PASTEUR [facility] typhoid Vi capsular polysaccharid e vaccine 6 2017 [id number] 101 Sanofi Pasteur (PMC) complet ed typhoid Vi capsular polysacch aride vaccine DoD Influenza, inj, MDCK, quadrivalent- pf [id number] Seqirus complet ed Influenza , inj, MDCK, quadrival ent-pf 09/08/17 Given Ambulat ory Pharmac y Influenza, injectable, Madin [place] Canine Kidney, preservative free, quadrivalent 1 [id number] 171 Seqirus (SEQ) comple t ed Influenza , injectabl e, Madin [place] Canine Kidney, preservat kenneth free, quadrival ent DoD influenza, seasonal, injectable-pf 2015 [id number] 140 Seqirus complet ed influenza , seasonal, injectabl e-pf 09/30/16 Given Ambulat ory Pharmac y Influenza, seasonal, injectable, preservative free 1 2015 [id number] 140 Seqirus (SEQ) comple t ed Influenza , seasonal, injectabl e, preservat kenneth free DoD typhoid Vi capsular polysaccharid e vac 2015 [id number] 101 sanofi pasteur complet ed typhoid Vi capsular polysacch aride vac 02/20/16 Given Ambulat ory Pharmac y typhoid Vi capsular polysaccharid e vaccine 1 2015 [id number] 101 Sanofi Pasteur (PMC) complet ed typhoid Vi capsular polysacch aride vaccine DoD influenza, live, intranasal,qu adrivalent 2015 [id number] 149 W[employer] Inc comple t ed influenza , live, intranasa l,quadriv alent 12/03/15 Given Ambulat ory Pharmac y measles/mumps /rubella virus vaccine 2015 [id number] 03 Merck & Baby Blendy Inc complet ed measles/m umps/rube lla virus vaccine 12/03/15 Given Ambulat ory Pharmac y MMR 2015 03 complet ed measles/m umps/rube lla virus vaccine Lot#: [id number] [facility] measles, mumps and rubella virus vaccine 2 2015 [id number] 03 Merck (MSD) complet ed measles, mumps and rubella virus vaccine DoD influenza, live, intranasal, quadrivalent 18 2015 [id number] 149 FreeMarkets, [email or web address]. ([facility]) complet ed influenza , live, intranasa l, quadrival ent DoD Influenza, injectable, MDCK-pf 2013 [id number] 153 Novartis Pharmaceutica ls complet ed Influenza , injectabl e, MDCK-pf 08/28/14 Given Ambulat ory Pharmac y Influenza, injectable, Madin [place] Canine Kidney, preservative free 17 2013 [id number] 153 Novartis Pharmaceutica l Shai. (NOV) complet ed Influenza , injectabl e, Madin [place] Canine Kidney, preservat kenneth free DoD influenza, seasonal, injectable 2012 [id number] 141 CSL Behring complet ed influenza , seasonal, injectabl e 09/27/13 Given Ambulat ory Pharmac y Influenza, seasonal, injectable 0 2012 [id number] 141 [facility] AlterG, Inc. (CS) complet ed Influenza , seasonal, injectabl e DoD tuberculin purified protein derivative 2012 [id number] 96 sanofi pasteur complet ed tuberculi n purified protein derivativ e 01/24/13 Given Ambulat ory Pharmac y hepatitis B adult vaccine 2012 [id number] 43 GlaxoSmithKli ne complet ed hepatitis B adult vaccine 01/24/13 Given Ambulat ory Pharmac y HEP B, ADULT 3 2012 43 complet ed hepatitis B vaccine, adult dosage Lot#: [id number] [facility] [employer] [facility] hepatitis B vaccine, adult dosage 3 2012 [id number] [id number] 43 SmithKline (SKB) complet ed hepatitis B vaccine, adult dosage DoD influenza, seasonal, injectable 2012 [id number] 141 sanofi pasteur complet ed influenza , seasonal, injectabl e 12/09/12 Given Ambulat ory Pharmac y Influenza, seasonal, injectable 1 2012 [id number] 141 Sanofi Pasteur (PMC) complet ed Influenza , seasonal, injectabl e DoD hepatitis B adult vaccine 2011 [id number] 0AB 43 GlaxoSmithKli ne complet ed hepatitis B adult vaccine 01/09/12 Given Ambulat ory Pharmac y HEP B, ADULT 2 2011 43 complet ed hepatitis B vaccine, adult dosage Lot#: [id number] B [facility] [employer] [facility] hepatitis B vaccine, adult dosage 2 2011 [id number] 0AB 43 SmithKline (SKB) complet ed hepatitis B vaccine, adult dosage DoD typhoid Vi capsular polysaccharid e vac 2010 [id number] 101 sanofi pasteur complet ed typhoid Vi capsular polysacch aride vac 11/05/11 Given Ambulat ory Pharmac y hepatitis B adult vaccine 2010 [id number] [id number] 43 GlaxoSmithKli ne complet ed hepatitis B adult vaccine 11/05/11 Given Ambulat ory Pharmac y anthrax vaccine 2010 [id number] 24 Emergent Biosolutions complet ed anthrax vaccine 11/05/11 Given Ambulat ory Pharmac y ANTHRAX VACCINE, UNSPECIFIED 2010 319 complet ed Lot#: [id number] Mfr: EMERGENT BIOSOLUTI ONS [facility] HEP B, ADULT 1 2010 43 complet ed hepatitis B vaccine, adult dosage Lot#: [id number] B [facility] anthrax vaccine 6 2010 [id number] 24 Emergent [employer] [place] ([facility]) complet ed anthrax vaccine DoD hepatitis B vaccine, adult dosage 1 2010 [id number] [id number] 43 FLS EnergyKline (SKB) complet ed hepatitis B vaccine, adult dosage DoD typhoid Vi capsular polysaccharid e vaccine 1 2010 [id number] 101 Sanofi Pasteur ([facility]) complet ed typhoid Vi capsular polysacch aride vaccine DoD influenza, seasonal, injectable 2010 [id number] 141 sanofi pasteur complet ed influenza , seasonal, injectabl e 10/28/11 Given Ambulat ory Pharmac y Influenza, seasonal, injectable 14 2010 [id number] 141 Sanofi Pasteur ([facility]) complet ed Influenza , seasonal, injectabl e DoD tetanus, diphtheria, acellular pertu is 2010 [id number] 115 sanofi pasteur complet ed tetanus, diphtheri a, acellular pertussis 04/07/11 Given Ambulat ory Pharmac y tetanus toxoid, reduced diphtheria toxoid, and acellular pertu is vaccine, adsorbed 1 2010 [id number] 115 Sanofi Pasteur ([facility]) complet ed tetanus toxoid, reduced diphtheri a toxoid, and acellular pertussis vaccine, adsorbed DoD influenza virus vaccine,split 2009 [id number] 15 sanofi pasteur complet ed influenza virus vaccine,s plit 10/28/10 Given Ambulat ory Pharmac y influenza virus vaccine, split virus (incl. purified surface antigen)-reti red CODE 1 2009 [id number] 15 Sanofi Pasteur ([facility]) complet ed influenza virus vaccine, split virus (incl. purified surface antigen)- retired CODE DoD Novel influenza-H1N 1-09, injectable 2009 [id number] 127 Novartis Pharmaceutica ls complet ed Novel influenza -Q8Z8-09, injectabl e 03/25/10 Given Ambulat ory Pharmac y Novel influenza-H1N 1-09, injectable 1 2009 [id number] 1 127 Novartis Pharmaceutica l Shai. (NOV) complet ed Novel influenza -H4N9-60, injectabl e DoD influenza virus vaccine, live 2008 [id number] 111 [employer] Inc comple t ed influenza virus vaccine, live 10/29/09 Given Ambulat ory Pharmac y influenza virus vaccine, live, attenuated, for intranasal use 1 2008 [id number] 111 MedIStrawberry energyune, Inc. (MED) complet ed influenza virus vaccine, live, attenuate d, for intranasa l use DoD influenza virus vaccine,split 2008 [id number] 15 sanofi pasteur complet ed influenza virus vaccine,s plit 12/04/08 Given Ambulat ory Pharmac y influenza virus vaccine, split virus (incl. purified surface antigen)-reti red CODE 1 2008 [id number] 15 Sanofi Pasteur ([facility]) complet ed influenza virus vaccine, split virus (incl. purified surface antigen)- retired CODE DoD influenza virus vaccine, live 2007 [id number] 111 MediStrawberry energyune Inc comple t ed influenza virus vaccine, live 11/29/07 Given Ambulat ory Pharmac y influenza virus vaccine, live, attenuated, for intranasal use 1 2007 [id number] 111 MedImmune, Inc. (MED) complet ed influenza virus vaccine, live, attenuate d, for intranasa l use DoD influenza virus vaccine,split 2005 [id number] 15 sanofi pasteur complet ed influenza virus vaccine,s plit 10/13/06 Given Ambulat ory Pharmac y influenza virus vaccine, split virus (incl. purified surface antigen)-reti red CODE 1 2005 [id number] 15 Sanofi Pasteur ([facility]) complet ed influenza virus vaccine, split virus (incl. purified surface antigen)- retired CODE DoD varicella virus vaccine 0 2005 21 () Not Given varicella virus vaccine DoD influenza virus vaccine,split 2005 [id number] 15 sanofi pasteur complet ed influenza virus vaccine,s plit 12/02/05 Given Ambulat ory Pharmac y influenza virus vaccine, split virus (incl. purified surface antigen)-reti red CODE 1 2005 [id number] 15 Sanofi Pasteur (PMC) complet ed influenza virus vaccine, split virus (incl. purified surface antigen)- retired CODE DoD typhoid Vi capsular polysaccharid e vac 2003 [id number] 101 sanofi pasteur complet ed typhoid Vi capsular polysacch aride vac 05/06/04 Given Ambulat ory Pharmac y typhoid Vi capsular polysaccharid e vaccine 0 2003 [id number] 101 Sanofi Pasteur ([facility]) complet ed typhoid Vi capsular polysacch aride vaccine DoD anthrax vaccine 2003 [id number] 24 Emergent Biosolutions complet ed anthrax vaccine 01/01/04 Given Ambulat ory Pharmac y ANTHRAX VACCINE, UNSPECIFIED 2003 319 complet ed Lot#: [id number] Mfr: EMERGENT BIOSOLUTI [facility] anthrax vaccine 6 2003 [id number] Emergent [employer] [place] ([facility]) complet ed anthrax vaccine DoD tuberculin purified protein derivative 2002 [id number] 96 sanofi pasteur complet ed tuberculi n purified protein derivativ e 08/28/03 Given Ambulat ory Pharmac y influenza virus vaccine, whole virus 2002 [id number] 16 [employer] complet ed influenza virus vaccine, whole virus 08/28/03 Given Ambulat ory Pharmac y influenza virus vaccine, whole virus 0 2002 [id number] 16 [facility] ([facility]) complet ed influenza virus vaccine, whole virus DoD anthrax vaccine 2002 [id number] 24 Emer[employer] complet ed anthrax vaccine 05/01/03 Given Ambulat ory Pharmac y ADENOVIRUS, UNSPECIFIED FORMULATION 2002 82 complet ed Lot#: [id number] Mfr: EMERGENT BIOSOLUTI ONS [facility] [place] [facility] anthrax vaccine 5 2002 [id number] 24 [facility] complet ed anthrax vaccine DoD vaccinia (smallpox) vaccine 0 2002 75 () Not Given vaccinia (smallpox ) vaccine DoD anthrax vaccine 2001 [id number] 24 [employer] complet ed anthrax vaccine 10/31/02 Given Ambulat ory Pharmac y ANTHRAX VACCINE, UNSPECIFIED 2001 319 complet ed Lot#: [id number] Mfr: EMERGENT BIOSOLUTI ONS [facility] anthrax vaccine 4 2001 [id number] 24 Emergent [facility] ([facility]) complet ed anthrax vaccine DoD influenza virus vaccine, whole virus 2001 [id number] 16 sanofi pasteur complet ed influenza virus vaccine, whole virus 09/26/02 Given Ambulat ory Pharmac y tuberculin purified protein derivative 2001 [id number] 96 sanofi pasteur complet ed tuberculi n purified protein derivativ e 09/26/02 Given Ambulat ory Pharmac y influenza virus vaccine, whole virus 0 2001 [id number] 16 Sanofi Pasteur (PMC) complet ed influenza virus vaccine, whole virus DoD influenza virus vaccine, whole virus 2000 [id number] 16 sanofi pasteur complet ed influenza virus vaccine, whole virus 09/27/01 Given Ambulat ory Pharmac y tuberculin purified protein derivative 2000 [id number] 96 sanofi pasteur complet ed tuberculi n purified protein derivativ e 09/27/01 Given Ambulat ory Pharmac y influenza virus vaccine, whole virus 0 2000 [id number] 16 Sanofi Pasteur (PMC) complet ed influenza virus vaccine, whole virus DoD tetanus-dipht h toxoids (Td) adult/adol 2000 [id number] 09 [employer] complet ed tetanus-d iphth toxoids (Td) adult/ado l 03/16/01 Given Ambulat ory Pharmac y tetanus and diphtheria toxoids, adsorbed, preservative free, for adult use (2 Lf of tetanus toxoid and 2 Lf of diphtheria toxoid) 0 2000 [id number] 09 [facility] (CON) complet ed tetanus and diphtheri a toxoids, adsorbed, preservat kenneth free, for adult use (2 Lf of tetanus toxoid and 2 Lf of diphtheri a toxoid) [employer] influenza virus vaccine, whole virus 2000 [id number] 16 [facility] complet ed influenza virus vaccine, whole virus 11/30/00 Given Ambulat ory Pharmac y influenza virus vaccine, whole virus 0 2000 [id number] 16 [facility] ([facility]) complet ed influenza virus vaccine, whole virus DoD yellow fever vaccine 1999 37 complet ed yellow fever vaccine 08/03/00 Given Ambulat ory Pharmac y tuberculin purified protein derivative 1999 [id number] [address] [facility] complet ed tuberculi n purified protein derivativ e 08/03/00 Given Ambulat ory Pharmac y YELLOW FEVER LIVE 1999 37 complet ed yellow fever vaccine [facility] yellow fever vaccine 0 1999 37 () complet ed yellow fever vaccine DoD anthrax vaccine 1999 [id number] 24 [employer] complet ed anthrax vaccine 05/31/00 Given Ambulat ory Pharmac y ANTHRAX VACCINE, UNSPECIFIED 1999 319 complet ed Lot#: [id number] Mfr: EMERGENT BIOSOLUTI [facility] anthrax vaccine 3 1999 [id number] 24 [employer] [place] ([facility]) complet ed anthrax vaccine DoD anthrax vaccine 1999 [id number] [employer] complet ed anthrax vaccine 04/13/00 Given Ambulat ory Pharmac y ANTHRAX VACCINE, UNSPECIFIED 1999 319 complet ed Lot#: [id number] Mfr: EMERGENT BIOSOLUTI [facility] anthrax vaccine 2 1999 [id number] 24 [employer] [place] ([facility]) complet ed anthrax vaccine DoD tuberculin purified protein derivative 1999 [id number] 96 [facility] complet ed tuberculi n purified protein derivativ e 03/30/00 Given Ambulat ory Pharmac y anthrax vaccine 1999 [id number] 24 [employer] complet ed anthrax vaccine 03/30/00 Given Ambulat ory Pharmac y ANTHRAX VACCINE, UNSPECIFIED 1999 319 complet ed Lot#: [id number] Mfr: EMERGENT BIOSOLUTI [facility] anthrax vaccine 1 1999 [id number] 24 [employer] [place] ([facility]) complet ed anthrax vaccine DoD hepatitis A adult vaccine 1999 [id number] 52 Merck & Company Inc complet ed hepatitis A adult vaccine 01/20/00 Given Ambulat ory Pharmac y HEP A, ADULT 2 1999 52 complet ed hepatitis A vaccine, adult dosage Lot#: [id number] Mfr: [employer] [facility] hepatitis A vaccine, adult dosage 2 1999 [id number] 52 Merck (MSD) complet ed hepatitis A vaccine, adult dosage DoD influenza virus vaccine, whole virus [id number] 16 [facility] complet ed influenza virus vaccine, whole virus 10/28/99 Given Ambulat ory Pharmac y influenza virus vaccine, whole virus 0 [id number] 16 [facility] ([facility]) complet ed influenza virus vaccine, whole virus DoD tuberculin purified protein derivative 1998 [id number] 96 sanofi pasteur complet ed tuberculi n purified protein derivativ e 08/05/99 Given Ambulat ory Pharmac y meningococcal polysaccharid e (MPSV4) [id number] 32 sanofi pasteur complet ed meningoco ccal polysacch aride (MPSV4) 04/05/99 Given Ambulat ory Pharmac y MENINGOCOCCAL MPSV4 1998 32 complet ed meningoco ccal polysacch aride vaccine (MPSV4) Lot#: [id number] Mfr: SANOFI PASTEUR [facility] meningococcal polysaccharid e vaccine (MPSV4) 0 [id number] 32 Sanofi Pasteur ([facility]) complet ed meningoco ccal polysacch aride vaccine (MPSV4) DoD tuberculin purified protein derivative 1998 [id number] 96 [facility] complet ed tuberculi n purified protein derivativ e 04/04/99 Given Ambulat ory Pharmac y hepatitis A adult vaccine 1998 [id number] 52 Merck & Company Inc complet ed hepatitis A adult vaccine 04/04/99 Given Ambulat ory Pharmac y typhoid vaccine, live, oral 1998 [id number] 25 [employer] [place] complet ed typhoid vaccine, live, oral 04/04/99 Given Ambulat ory Pharmac y measles/mumps /rubella virus vaccine [id number] [facility] complet ed measles/m umps/rube lla virus vaccine 04/04/99 Given Ambulat ory Pharmac y MMR 1998 03 complet ed measles/m umps/rube lla virus vaccine Lot#: [id number] [facility] measles, mumps and rubella virus vaccine 0 [id number] [id number] 03 [facility] (CON) complet ed measles, mumps and rubella virus vaccine DoD typhoid vaccine, live, oral 0 1998 [id number] 25 [facility] (SI) complet ed typhoid vaccine, live, oral DoD hepatitis A vaccine, adult dosage 1 1998 [id number] Merck (MSD) complet ed hepatitis A vaccine, adult dosage DoD HEP A, ADULT 1 1998 52 complet ed hepatitis A vaccine, adult dosage Lot#: [id number] Mfr: [employer] [facility] influenza virus vaccine, whole virus [id number] sanofi pasteur complet ed influenza virus vaccine, whole virus 08/11/98 Given Ambulat ory Pharmac y influenza virus vaccine, whole virus 0 [id number] Sanofi Pasteur ([facility]) complet ed influenza virus vaccine, whole [...] 53 complet ed typhoid, parentera l, AKD [facility] typhoid vaccine, parenteral, acetone-kille d, dried ([place].S. ) 2 1995 53 [...] ed polioviru s vaccine, live, oral [facility] trivalent poliovirus vaccine, live, oral 0 1990 [...] 37 complet ed yellow fever vaccine [facility] yellow fever vaccine 0 1989 37 () complet ed yellow fever vaccine DoD meningococcal polysaccharid e (MPSV4) 1989 32 complet ed meningoco ccal polysacch aride (MPSV4) 01/22/90 Given Ambulat ory Pharmac y MENINGOCOCCAL MPSV4 1989 32 complet ed meningoco ccal polysacch aride vaccine (MPSV4) [facility] meningococcal polysaccharid e vaccine (MPSV4) 0 1989 [...] Jul 02, 2024 03:02 PM Reporting Lab: [facility] [facility] [address] [id number] Performing Lab: [facility] [address] [id number] [facility] Vital Signs Combined list of inpatient and outpatient Vital Signs from Department of Defense and Veterans Affairs, ranging from 12 months to all on record, depending upon the facility. Vital Sign Value Date Comments Source SYSTOLIC BLOOD PRESSURE 134 11/11/20 24 08:59:08 [facility] DIASTOLIC BLOOD PRESSURE 91 024 08:59:08 [facility] PULSE OXIMETRY 98 11/11/2024 08:59:08 [facility] WEIGHT 167 11/11/2024 08:59:08 [facility] BMI 26 kg/m2 11/11/2024 08:59:08 [facility] [...] [facility] DIASTOLIC BLOOD PRESSURE 74 08/11/ 024 15:35:43 [facility] PULSE OXIMETRY 98 08/11/2024 15:35:43 [facility] WEIGHT 162 08/11/2024 15:35:43 [facility] BMI 25 kg/m2 08/11/2024 15:35:43 [facility] [...] 14:52:46 [facility] BMI 25 kg/m2 07/02/2024 14:52:46 [facility] [...] from Department of Veterans Affairs facilities going backup to the last 18 months, not all [place] inpatient encounters are included; 2) Encounters from the Department of Defense facilities going backup to 280 months. Location Location Details Encounter Type Encounter Number Reason For Visit Attending Provider ADM Date DC Date Status Disposition Source Theater Facility OUTPATIENT [id number] 04/01 Released w/o Limitations [facility] OUTPATIENT [id number] 04/09 Released w/o Limitations [facility] OUTPATIENT [id number] 04/16 Released w/o Limitations Theater Facilit y [facility], [place] [address](AFN G [address] Sq-FM) OUTPATIENT [id number] Notes Entered by: JESICA WHITEHEAD 31 May 2017 0811 ------- ------- ------- ------- -- [employer] BERNARDOQ KAN WHITEHEAD 05/31 Released w/o Limitations [facility] [place] [facility] [place] [address](A FNG 104 Med Sq-FM) [place] [address](AFN G 104 Med Sq-FM) OUTPATIENT [id number] Notes Entered by: KATELYNN ONEILL 28 Dec 2017 1525 ------- ------- ------- ------- -- [employer] KATELYNN DOE 12/28 Released w/o Limitations [facility] [place] [address](A FNG 104 Med Sq-FM) [place] [address](AFN G 104 Med Sq-FM) OUTPATIENT [id number] Notes Entered by: JANETH URIOSTEGUI 17 Jan 2018 1329 ------- ------- ------- ------- -- LILY Kuhn 01/17 Released w/o Limitations [facility] [place] [address](A FNG 104 Med Sq-FM) [place] [address](AFN G 104 Med Sq-PH) OUTPATIENT [id number] Notes Entered by: JANETH URIOSTEGUI 09 May 2018 1046 ------- ------- ------- ------- -- [facility] loyment / Occupat [facility] CATA HAND 05/09 [facility] Limitations [facility] [place] [place] [address](A FNG 104 Med Sq-PH) [place] [address](AFN G 104 Med Sq-FM) OUTPATIENT [id number] Notes Entered by: LILY CANELA 23 Jan 2019 0858 ------- ------- ------- ------- -- PHALILY PIERRE 01/23 Released w/o Limitations [facility] [place] [place] [address](A FNG 104 Med Sq-FM) [place] [id number](AFN G 104 Med Sq-FM) OUTPATIENT [id number] 0 Notes Entered by: JANETH URIOSTEGUI 23 Jan 2019 0924 ------- ------- ------- ------- -- [facility] CATA HAND 01/23 Released w/o Limitations [facility] [place] [place] [address](A FNG 104 Med Sq-FM) [place] [address](AFN G 104 Med Sq-FM) OUTPATIENT [id number] Notes Entered by: LILY CANELA 03 Sep 2019 0849 ------- ------- ------- ------- -- med report LILY CANELA 09/03 Released w/o Limitations [facility] [place] [place] [address](A FNG 104 Med Sq-FM) [place] [address](AFN G 104 Med Sq-FM) OUTPATIENT [id number] Notes Entered by: LILY CANELA CHANA 11 Sep 2019 1053 ------- ------- ------- ------- -- back pain LILY CANELA CHANA 09/11 Released w/o Limitations [facility] [place] [address](A FNG 104 Med Sq-FM) [place] [address](AFN G 104 Med Sq-FM) OUTPATIENT [id number] Notes Entered by: MAUREEN CANELANUHA ZAYAS 26 Nov 2019 0755 ------- ------- ------- ------- -- PHAQ MAUREEN CANELANUHA ZAYAS 11/26 [facility]ased w/o Limitations [facility] [place] [place] [address](A FNG 104 Med Sq-FM) [place] [address](AFN G 104 Med Sq-FM) OUTPATIENT [id number] Notes Entered by: HILTON LILYNUHA ZAYAS 01 Jun 2020 1017 ------- ------- ------- ------- -- DRDAVID1 MAUREEN CANELANUHA ZAYAS 06/01 Released w/[facility] Limitations [facility] [place] [place] [address](A FNG 104 Med Sq-FM) [place] [address](AFN G 104 Med Sq-FM) OUTPATIENT [id number] 6 Notes Entered by: WARREN HAND 09 Aug 2020 1050 ------- ------- ------- ------- -- CATA KNIGHT 08/09 [facility] w/o Limitations [facility] [place] [address](A FNG 104 Med Sq-FM) [place] [address](AFN G 104 Med Sq-FM) OUTPATIENT [id number] 5 Notes Entered by: LILY CANELA 11 Oct 2020 1044 ------- ------- ------- ------- -- DRHA2 LILY CANELA CHANA 10/11 Released w/o Limitations [facility] [place] [address](A FNG 104 Med Sq-FM) [place] [address](AFN G 104 Med Sq-FM) OUTPATIENT [id number] 8 Notes Entered by: LILY CANELA 06 Jan 2021 0858 ------- ------- ------- ------- -- PHAJameel HILTON LILY ZAYAS 01/06 Released w/o Limitations [facility] [place] [address](A FNG 104 Med Sq-FM) [place] [address](AFN G 104 Med Sq-FM) OUTPATIENT [id number] LILY CANELA CHANA 01/26 Released w/o Limitations [facility] [place] [address](A FNG 104 Med Sq-FM) [place] [address](AFN G 104 Med Sq-FM) OUTPATIENT [id number] 3 Notes Entered by: BERT AKINS 29 Jan 2022 1449 ------- ------- ------- ------- -- Annual Audiogr am / PHAQ LILY CANELA CHANA 01/29 Released w/o Limitations [facility] [place] [address](A FNG 104 Med Sq-FM) [place] [address](AFN G 104 Med Sq-FM) OUTPATIENT [id number] Notes Entered by: JESICA WHITEHEAD 25 Jan 2023 0750 ------- ------- ------- ------- -- KAN GO 01/25 Released w/o Limitations [facility] [place] [address](A FNG 104 Med Sq-FM) [facility] En[facility] [id number] 10/29 [facility] En[facility] [id number] 06/10 [facility] Encounter [id number] 06/19 [facility] Out[facility] Encounter [id number] Diagnos is: ICD-10- CM L30.9 Dermati tis, unspeci fied JENNIFER WRIGHT 06/30 [facility] Encounter [id number] 07/02 [facility] OFFICE O/P EST LOW 20 MIN [id number] Diagnos is: ICD-10- CM F43.10 Post-tr aumatic stress disorde r, unspeci fied RICK LILLY 07/02 [facility] PSYTX W PT 30 MINUTES [id number] Diagnos is: ICD-10- CM F43.9 Reactio n to severe stress, unspeci fied AZEB DYE 07/02 [facility] Out[facility] Encounter [id number] 07/03 [facility] Encounter [id number] Ledy LOPEZ 07/09 [facility] CASE MANAGEMENT [id number] Diagnos is: ICD-10- CM Z71.89 Other specifi ed supervisor counseling and guidance PARI Galvez 07/13 [facility] Out[facility] Encounter [id number] JENNIFER WRIGHT 07/16 [facility] Outpatient Encounter [id number] Diagnos is: ICD-10- CM Z02.89 Encount er for other adminis trative examina SHAHZAD Jenkins 07/17 [facility] PSYTX W PT 45 MINUTES [id number] Diagnos is: ICD-10- CM F32.A Depress ion, unspeci AZEB Morrison 07/21 [facility] [employer] Between Visit 07/21 Discharge Disposition: Home or Self Care zzJoint Umbrell a Org [facility] Outpatient Encounter [id number] 1.07/22 [facility] Out[facility] Encounter [id number] 1.07/22 [facility] Out[facility] Encounter [id number] 1.08/05 [facility] Out[facility]counter [id number] [facility] OFFICE O/P EST LOW 20 MIN [id number] 1. Diagnos is: ICD-10- CM M54.2 Cervica RICK Alvarado 08/11 [facility] TELEHEALTH FACILITY FEE [id number] 1. Diagnos is: ICD-10- CM G47.30 Sleep apnea, unspeci fied HOLLY,FREOK TAMI 09/21 [facility] (631GE) SLEEP STUDY UNATT&RESP EFFT [id number] Diagnos is: ICD-10- CM G47.30 Sleep apnea, unspeci fied HOLLY,[facility] TAMI 09/21 [facility] (6[facility]GE) [facility] PSYTX W PT 45 MINUTES [id number] 1. Diagnos is: ICD-10- CM F32.A Depress ion, unspeci fiAZEB Guerrero R 09/22 [facility] 8203R-104 MDG Mass Vaccine [id number] 09/29 8203R-1 04 MDG [facility] Outpatient Encounter [id number] 10/07 [facility] PSYTX W PT 30 MINUTES [id number] Diagnos is: ICD-10- CM F32.A Depress ion, unspeci fied AZEB DYE R 10/09 [facility] [place] (631GE) SLEEP STUDY UNATT&RESP EFFT [id number] Diagnos is: ICD-10- CM R06.83 Snoring HOLLY,FREDE TAMI 10/19 [facility] (631GE) [facility] Outpatient Encounter [id number] 1. JOSE BARRERA 10/21 [facility] SELF-MGMT EDUC & TRAIN 1 [place] [id number] 1. Diagnos is: ICD-10- CM G47.33 Obstruc tive sleep apnea (adult) ([facility]) JOSE [facility]ARRERA [facility] 10/21 [facility] [place] [place] Outpatient Encounter [id number] 10/26 [facility] [place] [place] Outpatient Encounter [id number] 11/02 [facility] [place] [place] 8203R-104 MDG Between Visit [id number] 11/05 Discharge Disposition: Home or Self Care 8203R-1 04 MDG [facility] OFFICE O/P EST MOD 30 MIN [id number] Diagnos is: ICD-10- CM K92.1 RICK Goins 11/11 [facility] [place] SLEEP STUDY UNATT&RESP EFFT [id number] Diagnos is: ICD-10- CM G47.30 Sleep apnea, unspeci fied ADITI-UPIERRE DietrichA 12/01 [facility] 8203R-104 MDG Care Not Rendered [id number] 12/02 Discharge Disposition: Home or Self Care 8203R-1 04 MDG [facility] Outpatient Encounter [id number] PATY FELTON 12/10 [facility] PH1 ASSMT&MGMT NQHP 5-10 [id number] Diagnos is: ICD-10- CM Z71.9 [employer] ing, unspeci fied PATY FELTON L 12/10 [facility] PSYTX W PT 30 MINUTES [id number] Diagnos is: ICD-10- CM F41.9 Anxiety disorde r, unspeci fied CAMPONOGAR A,ALISA 12/21 [facility] 8203R-104 MDG Care Not Rendered [id number] 12/23 Discharge Disposition: Home or Self Care 8203R-1 04 MDG [facility] PSYTX W PT 30 MINUTES [id number] Diagnos is: ICD-10- CM F41.9 Anxiety disorde r, unspeci fied CAMPONOGAR A,ALISA 12/28 [facility] Outpatient Encounter [id number] 12/30 [facility] PSYTX W PT 30 MINUTES [id number] Diagnos is: ICD-10- CM F41.9 Anxiety disorde r, unspeci fied CAMPONOGAR A,ALISA 01/18 [facility] Outpatient Encounter [id number] 01/18 [facility] [place] Procedures Combined list of: 1) Procedures from [...] smoking status NHIS VA-TOBACCO NEVER USED 06/19/2024 [facility] This section is an empty social history [...] Re-Establish Author: HU AMOS Date: 06/18/24 Received [facility] Audiology review on 09 JUNE 2024.?Re-Established baseline per [facility] guidance. Member will continue to be followed on HCP. 01/22/2025 8203R-104 MDG Functional Status Combined list of recent functional and cognitive assessments recorded at [facility] ([place] Functional [place] Measurement (FIM) Scale: 1 = Total Assistance (Subject = 0% +), 2 = Maximal Assistance (Subject = 25% +), 3 = Moderate Assistance (Subject = 50% +), 4 = Minimal Assistance (Subject = 75% +), 5 = Supervision, 6 = Modified Corson (Device), 7 = Complete Corson (Timely, Safely). Assessment Date/Time Source Assessment Type Assessment Skill Assessment Score Assessment Details No data available for this section
--- OUTSIDE RECORDS SUMMARY | 2025-01-22 10:22 | XMS_ITS | Data Portability ---
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) [facility] MODERATE MUST MEET 2 OUT OF 3 [...] THOROUGHLY DOCUMENT EACH ELEMENT THAT IS COVERED [email or web address] Not available 08/07/2024 11:52:01 09/23/2024 09/23/2024 [address] [place] [address] (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) [facility] MODERATE MUST MEET 2 OUT OF 3 [...] THAT IS COVERED Not available 09/23/2024 14:38:31 11/16/2024 11/16/2024 [address] [place] [address] (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) [facility] MODERATE MUST MEET 2 OUT OF 3 [...] EACH ELEMENT THAT IS COVERED Not available 11/16/2024 11:27:10 Plan of Treatment Reminders Order Date Submit Date Provider Last Modified By Organization Details Last Modified Time Details Appointments FOLLOW UP 15 2024 12:00P M DR VALE Not available Not available Not available Lab HbA1c (hemoglo bin A1c), blood 2023 024 [facility], [address] [place] [address], [id number], 11/16/2024 11:40:49 CMP, serum or plasma 2023 024 [facility], [address] [place] [address], [id number], 04/28/2024 14:11:32 HbA1c (hemoglo bin A1c), blood 2023 024 [facility], [address] [place] [address], [id number], 11/13/2024 11:10:04 Referral None recorded . Procedures None recorded . Surgeries None recorded . Imaging XR, hip, bilatera l, 2 view 2023 024 [facility], [address] [place] [address], [address], 09/30/2024 08:24:34 Medication Orders None recorded . Patient TargetsNo targets recorded. Patient Instructions Encounter Date Encounter Id Patient Instructions Last Modified By Organization Details Last Modified Time 11/16/2024 [id number] prediabetes: car e instructions Not available 11/16/2024 11:30:06 Reason for Referral None Reported. Results Created Date Observation Date Name Description Value Unit Range Abnormal Flag Note LastModifiedBy Organization Detail LastModifiedTime 09/25/2009/25/2024 XR, hip, bilat eral, 2 view No observ ation record ed. [address], [address], 09/27/2024 22:21:36 11/19/20 24 11/19/2024 CT, hip, w/o contr ast No observ ation record ed. [address], [address], 11/29/2024 20:37:03 11/19/20 24 11/19/2024 CT, hip, w/o contr ast No observ ation record ed. [address], [address], 11/29/2024 20:37:03 Result Notes None recorded. Problems Name Problem SNOMED Code Status Onset Date Resolution Date Notes Provider Name and Address Organization Details Recorded Time Neck pain 42453912 Active 2021 Vanessa holguin [facility] 2 09:20:09 Hypertrig lyceridem ia 147433737 Active 2021 Vanessa holguin [facility] 2 09:20:16 Eczema 35168055 Active 2021 Vanessa holguin [facility] 2 09:20:21 Kidney stone 16218117 Active 2021 Vanessa holguin [facility] 2 09:20:30 Obesity 007367848 Active 2021 Vanessa holguin [facility] 2 09:20:36 Impaired fasting glycemia 386053917 Active 2021 Darrell Vale, [address] [place] [address], [address], [place] [facility] 2 14:46:54 Pain of right shoulder joint 238008114960 92254 Active 2021 Darrell Vale DO [address] [place] [address], [address], [place] [facility] 2 14:50:08 Pain of right knee joint 865670906917 100 Active 2021 Darrell Vale DO [address] [place] [address] [place], [address], [facility] 2 14:50:31 Rupture of rotator cuff of right shoulder 420200643232 54486 Active 2021 Darrell Vale, [address] [place] [address], [address], [facility] 2 11:00:45 Injury of tendon of the rotator cuff of shoulder 971784001 Active 2021 Darrell Vale, DO [address] [place] [address], [address], [facility] 2 12:30:13 Glenoid labrum tear Active 2022 Darrell Vale DO [address] [place] [address], [address], [facility] 3 16:54:51 Glenoid labrum tear Active 2022 Darrell Vale DO [address] [place] [address], [address], [facility] 3 16:56:27 Mass of lower limb 796441288 Active 2023 Darrell Vale DO [address] [place] [address], [address], [facility] 4 15:06:26 Sleep apnea 75788211 Active 2023 Darrell Vale DO [address] [place] [address], [address], [facility] 4 11:08:21 Pain of bilateral knee joints 581040156583 104 Active 2023 Darrell Vale DO [address] [place] [address], [address], [facility] 4 11:51:10 Bilateral hip joint pain 081702173453 88733 Active 2023 Darrell Vale DO [address] [place] [address], [address], [facility] 14:40:28 Osteoarth ritis of bilateral hip joints 625567811461 105 Active 2024 Darrell HinojosaVandana Vale DO [address] [place] [address], [address], [facility] 5 20:37:32 Type 2 diabetes mellitus 63827532 Active 2024 Darrell HinojosaVandana Vale DO [address] [place] [address], [address], [facility] 5 20:40:00 Problem Notes None recorded. Procedures Surgical History Date Name Laterality Status Provider Name and Address Organization Details Recorded Time 022 Corticosteroid Injection completed Darrell HinojosaVandana Vale DO [address] [place] [address], [address], [facility] 08/27/2022 11:00:26 Imaging Results Imaging Date Name Status LastModified by Organiz ation Details LastModified Time 09/25/2024 XR, hip, bilateral, 2 view completed [address], [address], 09/27/2024 22:21:36 11/19/2024 CT, hip, w/o contrast completed [address], [address], 11/29/2024 20:37:03 11/19/2024 CT, hip, w/o contrast completed [address], [address], 11/29/2024 20:37:03 Procedure Notes None recorded. Medical Equipment None Reported. Allergies No known drug allergies Medications Name Sig Start Date Stop Date Status Note LastModified by Organization Details LastModified Time amoxicillin 500 mg capsule TAKE 1 CAPSULE BY MOUTH THREE TIMES A DAY UNTIL GONE 08/07 completed Not Available Not Available Not Available meloxicam 15 mg tablet Take 1 tablet every day by oral route as needed for 30 days. active Not Available Not Available No t Available betamethaso ne dipropionat e 0.05 % topical cream APPLY TO AFFECTED AREA TWICE A DAY active Not Available Not Available No t Available metformin ER 500 mg tablet,exte nded release 24 hr Take 1 tablet every day by oral route for 30 days. active Not Available Not Available No t [...] Updated DateTime 4 165.1 cm 29.1 kg/m2 46580.6 6 g 68 /min 98 % 98 % 138 mm[Hg] 80 mm[Hg] Monica Patrick [facility] 4 12:03:16 Date Recorded Body height Body mass index (BMI) Body weight Heart rate Respiratory rate Oxygen saturation Oxygen saturation in Arterial blood by Pulse oximetry Systolic blood pressure Diastolic blood pressure Provider Name and Address Organization Details Last Updated DateTime 4 165.1 cm 27.8 kg/m2 43884.9 3 g 65 /min 16 /min 97 % 97 % 128 mm[Hg] 78 mm[Hg] Manohar Leiva [facility] 4 11:43:20 Date Recorded Body height Body mass index (BMI) Body weight Heart rate Oxygen saturation Oxygen saturation in Arterial blood by Pulse oximetry Systolic blood pressure Diastolic blood pressure Provider Name and Address Organization Details Last Updated DateTime 4 165.1 cm 25.5 kg/m2 22655.6 3 g 72 /min 97 % 97 % 138 mm[Hg] 68 mm[Hg] Monica Patrick [facility] 4 10:58:51 Date Recorded Body height Body mass index (BMI) Body weight Heart rate Oxygen saturation Oxygen saturation in Arterial blood by Pulse oximetry Systolic blood pressure Diastolic blood pressure Provider Name and Address Organization Details Last Updated DateTime 4 165.1 cm 27.8 kg/m2 44899.9 3 g 77 /min 98 % 98 % 132 mm[Hg] 82 mm[Hg] Manohar Leiva [facility] 4 14:22:13 Date Recorded Body height Body mass index (BMI) Body weight Heart rate Oxygen saturation Oxygen saturation in Arterial blood by Pulse oximetry Systolic blood pressure Diastolic blood pressure Provider Name and Address Organization Details Last Updated DateTime 4 165.1 cm 28.1 kg/m2 33355.1 1 g 62 /min 99 % 99 % 124 mm[Hg] 76 mm[Hg] Manohar Leiva [facility] 4 11:00:59 Social History Question Answer Notes LastModified by Organizat ion Details LastModified Time Tobacco Smoking Status Never Smoker Vanessa holguin [facility] 01/23/2022 09:21:08 What Is Your Level Of Alcohol Consumption? Occasional Information not available 01/23/2022 What Is Your Level Of Caffeine Consumption? Occasional Information not available 01/23/2022 What Was The Date Of Your Most Recent Tobacco Screening? 11/16/2024 [email or web address] Information not available 11/16/2024 Do You Use Any Illicit Or Recreational Drugs? No [email or web address] Information not available 01/23/2022 Sex: Unknown Functional Status None recorded. Mental Status None recorded. Family History Nothing Reported. Medical History No medical history recorded. Immunizations Vaccine Type Date Status Note Provider Nam e and Address Organization Details Recorded Time Hep B, adult 01/24/2013 keon holguin [facility] 01/23/2022 14:58:12 Td (adult) 04/07/2011 keon holguin [facility] 01/23/2022 14:58:22 polio, unspecified formulation 01/24/2013 keon holguin [facility] 01/23/2022 14:58:34 MMR 04/04/1999 keon holguin [facility] 01/23/2022 14:58:48 Hep A, adult 01/20/2000 keon holguin [facility] 01/23/2022 14:59:01 COVID-19, mRNA, LNP-S, PF, 100 mcg/0.5mL dose or 50 mcg/0.25mL dose 02/24/2021 completed Vanessa holguin [facility] 01/23/2022 14:59:13 COVID-19, mRNA, LNP-S, PF, 100 mcg/0.5mL dose or 50 mcg/0.25mL dose 03/22/2021 completed Vanessa holguin [facility] 01/23/2022 14:59:21 Anthrax, pre-exposure prophylaxis, post-exposure prophylaxis 11/05/2011 keon holguin [facility] 01/23/2022 14:59:38 Past Encounters Encounter ID Performer Location Encounter Start Date Encounter Closed Date Diagnosis/Indication Diagnosis SNOMED-CT Code Diagnosis ICD10 Code Diagnosis Note [id number] Darrell Vale [facility] Internal [facility] [address] [facility],[place] [address] 01/23/2022 14:49:08 01/23/2022 16:51:08 Pain of right shoulder joint 0383337957 2328626 M25.511 Hyperglycemia 37081045 R 73.9 [id number] Darrell Vale [facility] Internal [facility] [address] [facility],[place] [address] 02/06/2022 09:03:51 02/06/2022 12:28:10 Hyperglycemia 13564863 R73.9 long detailed discussion he will embark on this and get this done and avoid meds and complicati onsinfo providedre k in 3 mo Injury of tendon of the rotator cuff of shoulder 679015355 S46.001D discussed consev care [id number] Darrell Vale [facility] Internal [facility] [address] [facility],[place] [address] 05/08/2022 14:00:02 05/08/2022 15:10:09 Active or passive immunization 713415350 Z23 advised to bring record from [facility] Impaired f asting glycemia 980965496 R73.01 a1c is doing great down to 6.4 Pain of ri ght shoulder joint 9598124470 5346026 M25.511 will let us know when its time for a joan inj Pain of ri ght knee joint 4872774866 56247 M25.561 we will see how this goes and prob see him go to dr knutson [id number] Darrell Vale [facility] [address] [facility],[place] [place] [place] [address] 08/07/2022 14:41:22 08/07/2022 15:55:51 Impaired fasting glycemia 936723241 R73.01 a1c is doing great down to 6.3 from 6.4 and prior 7.7 Eczema 07114376 L30.9 stable Hypertriglyceridemia 302 845258 E78.2 stable and is quiet and we will rechk next year [id number] Darrell Vale [facility] [address] [facility],[place] [place] [place] [address] 08/27/2022 10:13:27 08/27/2022 11:45:14 Rupture of rotator cuff of right shoulder 0476788655 4341840 M75.101 [place] [id number] Darrell Vale [facility] Internal [facility] [address] [facility],[place] [address] 10/29/2022 11:20:00 10/29/2022 13:35:10 Injury of tendon of the rotator cuff of shoulder 724247620 S46.001D discussed consev carewe will do the PT route and have him then get an MRI if not any better and also ortho [id number] Darrell Vale [facility] [address] [facility],[place] [place] [address] 03/19/2023 15:17:24 03/19/2023 16:41:11 Kidney stone 43210010 N20.0 left flank pain severe at times 10 duration without abating [id number] Darrell Vale [facility] [address] [facility],[place] [address] 06/28/2023 08:06:32 06/28/2023 13:14:30 Hypertriglyceridemia 888596939 E78.2 stable and is quiet and we will rechk next year Impaired f asting glycemia 321985717 R73.01 a1c is doing great down to 6.3 from 6.4 and prior 7.7 [id number] Darrell Vale [facility] [address] [facility] [address] [facility] [address],[place] [address] 06/28/2023 13:23:58 07/01/2023 08:37:19 Kidney stone 22701132 N20.0 is scheduled for eswl on Jun on the right Glenoid labrum tear 2022 06019 S43.431D did well with surgery with dr knutson [id number] Darrell Vale [facility] [address] [facility] [address] [address] 02/11/2024 14:20:42 02/11/2024 15:13:00 Hypertriglyceridemia 345662328 E78.2 stable and is quiet and we will rechk next year Impaired f asting glycemia 940000027 R73.01 a1c is doing great down to 6.3 from 6.4 and prior 7.7 Eczema 06299995 L30.9 stable Mass of lower limb 29872 7000 R22.41 [id number] Darrell Vale [facility] [address] [facility],[place] [address] 02/26/2024 11:52:59 02/26/2024 12:30:25 Impaired fasting glycemia 715184978 R73.01 a1c is doing great down to 6.3 from 6.4 and prior 7.7 [id number] Darrell Vale [facility] [address] [facility] [address] [facility],[place] [address] 04/29/2024 11:18:39 04/29/2024 13:50:59 Hypertriglyceridemia 600128680 E78.2 LDL 57 HDL 57 trig Impaired f asting glycemia 360863169 R73.01 a1c is doing great down to 6.5 was 6.3 from 6.4 and prior 7.7 Depression screening 171 133922 Z13.31 neg [id number] Darrell Vale [facility] [address] [facility] [address],[place] [address] 08/07/2024 10:41:27 08/07/2024 11:54:40 Hypertriglyceridemia 556968185 E78.2 LDL 57 HDL 57 trig Impaired f asting glycemia 867576064 R73.01 a1c is doing great down to 6.5 was 6.3 from 6.4 and prior 7.7 [id number] Darrell Vale [facility] [address] [facility] [address],[place] [address] 09/23/2024 14:12:44 09/23/2024 15:11:15 Bilateral hip joint pain 5332345175 9687580 M25.551 here for rechk and is in need of the hip ct scan [id number] Darrell Vale [facility] [address] [facility] [address] [facility] [address],[place] [address] 11/16/2024 10:52:32 11/16/2024 11:37:38 Impaired fasting glycemia 187246359 R73.01 a1c is 6.9 and was down to 6.5 was 6.3 from 6.4 and prior 7.7will chk in january and decide Health Concerns Section Related Observation LastModified by Organization Detai ls LastModified Time None Recorded Concern Status LastModified by Organization Details LastModified Time None Recorded Advance Directives Directive None Recorded Payers Encounter Date Sequence Insurance Name Policy Number Policy Mosqueda Covered Member ID Mosqueda Member ID Guarantor Name 02/26/2024 1 [facility] 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 [facility] [id number] [facility] 04/29/2024 1 [facility] 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 [facility] [id number] [facility] 08/07/2024 2 [facility] [place] PRIOR TO 2024 - [employer] () Tello Auclair [id number] [facility] 08/07/2024 1 [facility] 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 113 Christopher A Auclair [id number] [facility] 09/23/2024 2 [facility] - DOS PRIOR TO 2024 - [employer] () Tello Sutherlandlair [id number] Tello Sutherlandlair 09/23/2024 1 [facility]: 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 113 Tello Sutherlandlair [id number] [facility] 11/16/2024 2 [place] - DOS PRIOR TO 2024 - [employer] () Tello Sutherlandlair [id number] [facility] 11/16/2024 1 [facility]: 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 113 Tello Hinojosa Auclair [id number] [facility] [place] Notes Date Note Type Note Provider Name a nd Address Organization Details Recorded Time 4 text/html Care Management - DiabetesReported bypatient.Self [...] been eating well Darrell Vale DO [address] [place], [address], [facility] 04/29/2024 12:20:18 4 text/html here for eval and review of labhas been being more [id number] is now done to 6.3is being seen [place] [facility] for his joints etchad a pos fit test and is going for a colonoscopyhe is relating that he has been having worsening hip and leg painhas been noticing his hips are hurting for the last few years and is getting worse Darrell Vale DO [address] [place], [address], [facility] 08/07/2024 11:52:42 4 text/html has been having issues with his hips for the past few years and has noticed it being worse as of late relates by end of dayrelates sometimes feel it in the morningibuprofen does help Darrell Vale DO [address] [place], [address], [facility] 09/23/2024 14:44:45 text/html here for [id number] has climbed to 6.9discussed crazy schedule at the basemetabolism is not good Darrell Vale, [address] [place], [address], [facility] 11/16/2024 11:35:45
[2025-01-22 11:15] LABS: Estimated Average Glucose 143 mg/dL; Hemoglobin A1C 181.9258 umol/L; Hemoglobin A1c % 6.6 % (<6.0)
== END 2025-01-22 09:33 | disposition home or self-care (01) ==
LOC: HO.WFDLDS 09:32
PROVIDERS: Visit Provider Internal Medicine
DX: R73.01 Impaired fasting glucose (principal)
CPT/HCPCS: 36415; 83036

== ENCOUNTER 2025-05-10 09:14 | Outpatient (REF) | payer BC, SELFPAY ==
--- OUTSIDE RECORDS SUMMARY | 2025-05-10 09:53 | XMS_ITS | Encounter Summary ---
Author Name [facility] [place] Address [address] [place] [address] Care Team Providers Care Communications Strategist Name Role Phone RICK LILLY Primary Care [...] Mosqueda's Name Patient's Relationship to Policy Mosqueda ANTHEM BCBS CT FEDERAL PREFERRED PROVIDER ORGANIZAT ION (PPO) BASIC SELF+ ONE Nov 27, 2020 [id number] [phone] Anabell SUERO PATIENT BCBS [place] FEP PREFERRED PROVIDER ORGANIZAT ION (PPO) BASIC SELF PLUS ONE Nov 27, 2020 [id number] Anabell SUERO PATIENT [employer] FEPRX PLAN PRESCRIPT ION CAREM ARK FEPRX Nov 27, 2020 [id number] Anabell SUERO R PATIENT [employer]-F EP BCBS PRESCRIPT ION FEP CAREM ARK Nov 27, 2020 [id number] Anabell SUERO PATIENT Selected Encounter This section includes the information on record at [place] for the Encounter. Date/Time Encounter Type Encounter Description Reason Provider Source Jan 18, 2025 10:00 AM PSYTX W PT 30 MINUTES ACTIVE DUTY SEXUAL TRAUMA ICD-10-CM F41.9 Anxiety disorder, unspecified CAMPONOGARA,SA FRANCINE IHE Encounter Template Text not used by [place] Assessments - Encounter Diagnoses This section includes the primary and secondary diagnoses documented for the Encounter. Date/Time Primary/Secondary Diagnosis Diagnosis Name Provider Source Jan 18, 2025 04:12 PM PRIMARY Anxiety disorder, unspecified CAMPONOGARA,SA FRANCINE [facility] Plan of Treatment: Future Appointments (+ 6 months) and Future Tests (+/- 45 days) The Plan of Treatment section includes future care activities for the patient from all [place] treatmentfacilities. This section includes future appointments and future orders which are active, pending or scheduled. Future Appointments This section includes appointments that were scheduled to occur 6 months from the date of the Encounter, up to a maximum of 20 appointments. The data comes from all [place] treatment facilities. Appointment Date/Time Appointment Type Appointme nt Facility Name Feb 11, 2025 02:30 PM [place] [facility] Mar 22, 2025 07:30 AM [facility] - NONE [facility] April 08, 2025 09:00 AM [facility] NONE [facility] Social History: Smoking Status (Most current) and Tobacco Use (All prior to encounter date) This section includes the most current, and the historical, smoking and tobacco- related health factors [facility] the [facility]. Current Smoking Status This section includes the most current smoking, or tobacco-related health factor, from the [place] facility where the Encounter took place. Date/Time Current Smoking Status Comment Facil [facility] Jun 19, 2024 02:14 PM VA-TOBACCO NEVER USED [place] [facility] Encounter Notes: All associated encounter notes This section contains the clinical notes associated to the Encounter. Date/Time Encounter Note(s) Provider Source Jan 18, 2025 12:44 PM PSYCHOLOGY NOTE: LOCAL TITLE: PSYCHOLOGY NOTE STANDARD TITLE: PSYCHOLOGY NOTE DATE OF NOTE: JAN 18, 2025@12:44 ENTRY DATE: JAN 18, 2025@12:44:33 AUTHOR: LISA JARRELL COSIGNER: URGENCY: STATUS: COMPLETED Cranial Electrotherapy Stimulation- 3rd session met with this ad writer for 30 minutes for his third Alpha-Stim session to address symptoms anxiety and depression. DSM-5 DIAGNOSES: Anxiety Disorder, Unspecified MENTAL STATUS AND BEHAVIORAL OBSERVATIONS: Hollie arrived to the appointment on time and was dressed appropriate to context. Princeton was oriented x4, and his thought process [...] on the unit. Patient's response to intervention: Princeton reported that his sleep has improved since starting alpha stim. He noticed that he falls asleep quicker if he wakes up in the middle of the night, resulting in better quality sleep. shared he was recently diagnosed with sleep apnea as well, but is less tired than he was pre-alpha stim. has not noticed positive impact on mood. Plan: Princeton has completed three trial sessions with some positive effect, as evidenced by self report. Consult submitted for order of Alpha-Stim through [facility] to be picked up upon discharge. Hollie was also provided a handout with instructions on how to utilize his alpha-stim device safely and efficiently. 's therapeutic level is a 3 on the [...] Signed: 01/18/2025 16:12 [facility]
[2025-05-10 11:35] LABS: Estimated Average Glucose 157 mg/dL; Hemoglobin A1C 219.9341 umol/L; Hemoglobin A1c % 7.1 % (<6.0)
== END 2025-05-10 09:15 | disposition home or self-care (01) ==
LOC: HO.WFDLDS 09:14
PROVIDERS: Visit Provider Internal Medicine
DX: R73.01 Impaired fasting glucose (principal)
CPT/HCPCS: 36415; 83036

== ENCOUNTER 2025-08-20 07:51 | Outpatient (REF) | payer BC, SELFPAY ==
--- OUTSIDE RECORDS SUMMARY | 2025-08-20 07:55 | XMS_ITS | Data Portability ---
Author Organization [facility]health Patient Home Address [address] [place] [address] Assessment Encounter Date Assessment Date Assessment LastModified by Organization Details LastModified Time 11/16/2024 11/16/2024 [id number] [place] [id number] (RN MED SURG) [facility] MODERATE MUST MEET 2 OUT OF [...] THAT IS COVERED Not available 11/16/2024 11:27:10 01/25/2025 01/25/2025 [id number] [place] [id number] (RN MED SURG) MDM MODERATE MUST MEET 2 OUT OF [...] EACH ELEMENT THAT IS COVERED Not available 01/25/2025 12:26:08 04/05/2025 04/05/2025 [id number] [place] [id number] (RN MED SURG) : MDM LOW MUST MEET 2 OF 3 ELEMENTS: PROBLEMS, DATA OR RISK ELEMENT 1: PROBLEMS ADDRESSED (LOW): 2 OR MORE SELF-LIMITED OR MINOR PROBLEMS OR 1 STABLE CHRONIC ILLNESS OR 1 ACUTE UNCOMPLICATED ILLNESS OR INJURY ELEMENT 2: DATA TO BE REVISED AND ANALYZED (LOW) MUST MEET 1 OF 2 CATEGORIES: CATEGORY 1. REVIEW OF PRIOR EXTERNAL NOTES/RESULTS, ORDERING OF TEST(S) CATEGORY 2. ASSESSMENT REQUIRING INDEPENDENT HISTORIAN(S) INCLUDE WHO THE HISTORIAN IS AND RELATION TO PT AND WHY PT IS UNABLE TO GIVE COMPLETE HISTORY ELEMENT 3: RISK (LOW) RISK OF COMPLICATIONS AND/OR MORBIDITY OR MORTALITY OF PATIENT MANAGEMENT PROVIDER MUST THOROUGHLY DOCUMENT ALL OF THE ELEMENTS COVERED Not available 04/05/2025 15:58:32 05/17/2025 05/17/2025 [id number] [place] [address] (RN MED SURG) MDM MODERATE MUST MEET 2 OUT OF [...] EACH ELEMENT THAT IS COVERED Not available 05/17/2025 10:19:01 06/16/2025 06/16/2025 [id number] [place] [address] (RN MED SURG) MDM MODERATE MUST MEET 2 OUT OF [...] EACH ELEMENT THAT IS COVERED Not available 06/16/2025 12:32:21 Plan of Treatment Reminders Order Date Submit Date Provider Last Modified By Organization Details Last Modified Time Details Appointments ANNUAL EXAM 2024 02:30P M DR VALE Not available Not available Not available Lab HbA1c (hemoglob in A1c), blood 2023 024 [facility], [address] [place] [address], [id number], 01/25/2025 11:59:16 HbA1c (hemoglob in A1c), blood 2024 025 [facility], [address] [place] [address], [address], 05/11/2025 11:19:03 HbA1c (hemoglob in A1c), blood 2024 025 [facility], [address] [place] [address], [address], 05/11/2025 11:19:03 Referral physical therapist referral 2024 025 [facility], [address] [place], [address], 04/16/2025 08:45:30 Procedures None recorded. Surgeries None recorded. Imaging XR, shoulder, 2 or more view 2024 025 [facility] (Radiology), [address] [place], [address], 04/06/2025 09:32:12 MRI, shoulder, w/o contrast [address] [facility], [facility] [place], [address], 04/27/2025 08:16:04 Medication Orders methylpre dnisolone 4 mg tablets in a dose pack 2024 025 [facility], [address] [place], [address], 06/16/2025 12:35:21 metformin 1,000 mg tablet 2024 025 [facility], [address] [place], [address], 06/16/2025 12:37:33 metformin ER 500 mg tablet,ex tended release 24 hr 2024 025 [facility], [address] [place], [address], 01/25/2025 12:28:52 Patient TargetsNo targets recorded. Patient Instructions Encounter Date Encounter Id Patient Instructions Last Modified By Organization Details Last Modified Time 11/16/2024 [id number] prediabetes: car e instructions Not available 11/16/2024 11:30:06 01/25/2025 [id number] sleep apnea: car e instructions Not available 01/25/2025 12:30:08 Reason for Referral Physical Therapist Referral for Nontraumatic partial rupture of left rotator cuff Referring Physician: Darrell Vale, Internal Medicine, Encounter Date: 04/05/2025 Results Created Date Observation Date Name Description Value Unit Range Abnormal Flag Note LastModifiedBy Organization Detail LastModifiedTime 11/19/20 24 11/19/2024 CT, hip, w/o contr ast No observ ation record ed. [address], [address], 11/29/2024 20:37:03 11/19/20 24 11/19/2024 CT, hip, w/o contr ast No observ ation record ed. [address], [address], 11/29/2024 20:37:03 04/06/20 25 04/06/2025 XR, shoul gilmar, 2 or more view No observ ation record ed. [address], [address], 04/08/2025 08:15:39 05/17/20 25 05/17/2025 MRI, renetta schafer, w/o contr ast No observ ation record ed. [facility] [address] [place], [address], 05/26/2025 14:23:35 Result Notes None recorded. Problems Name Problem SNOMED Code Status Onset Date Resolution Date Notes Provider Name and Address Organization Details Recorded Time Neck pain 25127759 Active 2021 Vanessa holguin [facility] Internal [facility] 2 09:20:09 Hypertrig lyceridem ia 020541654 Active 2021 [facility] 09:20[facility]16 Eczema 05180818 Active 2021 [facility] 09:20:21 Kidney stone 68783216 Active 2021 [facility] 09:20:30 Obesity 962649059 Active 2021 [facility] 09:20:36 Impaired fasting glycemia 526923087 Active 2021 Darrell Vale, [address] [place] [address], [address], [facility] 2 14:46:54 Pain of right shoulder joint 834694558980 72594 Active 2021 Darrell Vale, [address] [place] [address], [address], [place] [facility] 2 14:50:08 Pain of right knee joint 172866028433 100 Active 2021 Darrell Vale DO [address] [place] [address], [address], [place] [facility] Internal [facility] 2 14:50:31 Rupture of rotator cuff of right shoulder 729825839467 13972 Active 2021 Darrell Vale DO [address] [place] [address], [address], [facility] 2 11:00:45 Injury of tendon of the rotator cuff of shoulder 536114972 Active 2021 Darrell Vale, DO [address] [place] [address], [address], [facility] 2 12:30:13 Glenoid labrum tear Active 2022 Darrell Vale, DO [address] [place] [address], [address], [facility] 3 16:54:51 Glenoid labrum tear Active 2022 Darrell Vale DO [address] [place] [address], [address], [facility] 3 16:56:27 Mass of lower limb 952818864 Active 2023 Darrell Vale DO [address] [place] [address], [address], [facility] 4 15:06:26 Sleep apnea 22309410 Active 2023 Darrell Vale DO [address] [place] [address], [address], [facility] 4 11:08:21 Pain of bilateral knee joints 072538682073 104 Active 2023 Darrell Vale DO [address] [place] [address], [address], [facility] 4 11:51:10 Pain of bilateral hip joints 350198555141 97207 Active 2023 Darrell Vale DO [address] [place] [address], [address], [facility] 4 14:40:28 Osteoarth ritis of bilateral hip joints 138840374477 105 Active 2024 Darrell Vale DO [address] [place] [address], [address], [facility] Internal [facility] 5 20:37:32 Type 2 diabetes mellitus 10894344 Active 2024 Darrell Vale DO [address] [place] [address], [address], [facility] Internal [facility] 5 20:40:00 Nontrauma tic partial rupture of right rotator cuff 060934281504 9109 Active 2024 Darrell Vale DO [address] [place] [address], [address], [facility] 5 15:59:06 Nontrauma tic partial rupture of left rotator cuff 242169711730 9103 Active 2024 Darrell Vale DO [address] [place] [address], [address], [facility] Internal [facility] 5 15:59:23 Acute urticaria 708227288 Active 2024 Darrell Vale [address] [place] [address], [address], [facility] 5 12:32:36 Problem Notes None recorded. Procedures Surgical History Date Name Laterality Status Provider Name and Address Organization Details Recorded Time 022 Corticosteroid Injection completed Darrell Vale DO [address] [place] [address], [address], [facility] 08/27/2022 11:00:26 Imaging Results None recorded. Procedure Notes None recorded. Medical Equipment None Reported. Allergies No known drug allergies Medications Name Sig Start Date Stop Date Status Note LastModified by Organization Details LastModified Time amoxicillin 500 mg capsule TAKE 1 CAPSULE BY MOUTH THREE TIMES A DAY UNTIL GONE 08/07 completed Not Available Not Available Not Available meloxicam 15 mg tablet TAKE 1 TABLET BY MOUTH EVERY DAY NEEDED 2024 active Not Available Not Available Not Avai lable metformin 1,000 mg tablet TAKE 1 TABLET BY MOUTH TWICE A DAY active Not Available Not Available No t Available betamethaso ne dipropionat e 0.05 % topical cream APPLY TO AFFECTED AREA TWICE A DAY active Not Available Not Available No t Available methylpredn isolone 4 mg tablets in a dose pack TAKE 6 TABLETS ON DAY 1 DIRECTED ON PACKAGE AND DECREASE BY 1 TAB EACH DAY FOR A TOTAL OF 6 DAYS active Not Available Not Available No t Available metformin ER 500 mg tablet,exte nded release 24 hr TAKE 1 TABLET BY MOUTH EVERY DAY 2024 active Not Available Not Available Not Avai lable naproxen 500 mg tablet TAKE 1 TABLET BY MOUTH TWICE A DAY WITH FOOD 04/29 completed Not Available Not Available Not Available oxycodone 5 mg tablet TAKE 1-2 TABLETS BY MOUTH EVERY 4 HOURS NEEDED FOR PAIN DO NOT DRIVE WHILE TAKING THIS MEDICATIO N 04/29 completed Not Available Not Available Not Available GaviLyte-G 236 gram-22.74 gram-6.74 gram-5.86 gram oral solution PER INSTRUCTI ONS FROM GI. 06/16 completed Not Available Not Available Not Available FreeStyle Zelalem 3 Plus Sensor device USE DIRECTED. active Not Available Not Available No t Available Vitals Date Recorded Body height Body mass index (BMI) Body weight Heart rate Oxygen saturation Oxygen saturation in Arterial blood by Pulse oximetry Systolic And Diastolic Provider Name and Address Organization Details Last Updated DateTime 5 165.1 cm 28.3 kg/m2 99438.7 g 74 /min 98 % 98 % 108/76 mm[Hg] Darrell Vale DO [address] [place], [address] 5 12:01:44 Date Recorded Body height Body mass index (BMI) Body weight Heart rate Oxygen saturation Oxygen saturation in Arterial blood by Pulse oximetry Systolic And Diastolic Provider Name and Address Organization Details Last Updated DateTime 5 165.1 cm 28 kg/m2 81814.5 2 g 78 /min 98 % 98 % 134/82 mm[Hg] Darrell Vale DO [address] [place], [address] 5 15:27:01 Date Recorded Body height Body mass index (BMI) Body weight Heart rate Oxygen saturation Oxygen saturation in Arterial blood by Pulse oximetry Systolic And Diastolic Provider Name and Address Organization Details Last Updated DateTime 5 165.1 cm 28 kg/m2 12816.5 2 g 77 /min 98 % 98 % 130/80 mm[Hg] Monica Paganmond [facility] 5 09:43:06 Date Recorded Body height Body mass index (BMI) Body weight Oxygen saturation Oxygen saturation in Arterial blood by Pulse oximetry Heart rate Systolic And Diastolic Provider Name and Address Organization Details Last Updated DateTime 5 165.1 cm 28 kg/m2 13838.5 2 g 97 % 97 % 60 /min 118/70 mm[Hg] Ebony Contrerasgeorgiana [facility] Medicine 5 12:00:53 Date Recorded Body height Body mass index (BMI) Body weight Heart rate Oxygen saturation Oxygen saturation in Arterial blood by Pulse oximetry Systolic And Diastolic Provider Name and Address Organization Details Last Updated DateTime 4 165.1 cm 28.1 kg/m2 33455.1 1 g 62 /min 99 % 99 % 124/76 mm[Hg] Manohar Leiva [facility] Medicine 4 11:00:59 Social History Question Answer Notes LastModified by Humansized Details LastModified Time Tobacco Smoking Status Never Smoker Vanessa holguin [facility] 01/23/2022 09:21:08 What Is Your Level Of Caffeine Consumption? Occasional Information not available 01/23/2022 What Was The Date Of Your Most Recent Tobacco Screening? 06/16/2025 [email or web address] Information not available 06/16/2025 Sex: Unknown Functional Status Question Answer Note LastModified by Humans[employer] Details LastModified Time Do you use any illicit or recreational drugs? No [email or web address] Information not available 01/23/2022 Do you or have you ever used any other forms of tobacco or nicotine? No [email or web address] Information not available 05/17/2025 What is your level of alcohol consumption? Occasional Information not available 01/23/2022 Mental Status None recorded. Family History Nothing Reported. Medical History No medical history recorded. Immunizations Vaccine Type Date Status Note Provider Nam e and Address Organization Details Recorded Time Hep B, adult 01/24/2013 completed Vanessa holguin [facility] 01/23/2022 14:58:12 Td (adult) 04/07/2011 keon holguin [facility] 01/23/2022 14:58:22 polio, unspecified formulation 01/24/2013 keon holguin [facility] 01/23/2022 14:58:34 MMR 04/04/1999 keon holguin [facility] 01/23/2022 14:58:48 Hep A, adult 01/20/2000 keon holguin [facility] 01/23/2022 14:59:01 COVID-19, mRNA, LNP-S, PF, 100 mcg/0.5mL dose or 50 mcg/0.25mL dose 02/24/2021 keon holguin [facility] 01/23/2022 14:59:13 COVID-19, mRNA, LNP-S, PF, 100 mcg/0.5mL dose or 50 mcg/0.25mL dose 03/22/2021 keon holguin [facility] 01/23/2022 14:59:21 Anthrax, pre-exposure prophylaxis, post-exposure prophylaxis 11/05/2011 [facility] Vanessa holguin [facility] 01/23/2022 14:59:38 Past Encounters Encounter ID Performer Location Encounter Start Date Encounter Closed Date Diagnosis/Indication Diagnosis SNOMED-CT Code Diagnosis ICD10 Code Diagnosis IMO Codes Diagnosis Note [id number] [address] 01/23/2022 14:49:08 01/23/2022 16:51:08 Pain of right shoulder joint 7052777323 5133073 M25.511 Hyperglycemia 29235636 R 73.9 [id number] Darrell Vale [address],[place] [address] 02/06/2022 09:03:51 02/06/2022 12:28:10 [facility] 91469317 R73.9 long detailed discussion he will embark on this and get this done and avoid meds and complicati onsinfo providedre [facility] in 3 mo Injury of tendon of the rotator cuff of shoulder 333414324 S46.001D discussed consev care [id number] Darrell Vale [facility] [address] [facility] [address] 05/08/2022 14:00:02 05/08/2022 15:10:09 Active or passive immunization 780926418 Z23 advised to bring record from [facility] Impaired f asting glycemia 920955472 R73.01 a1c is doing great down to 6.4 Pain of ri ght shoulder joint 7618325682 7967429 M25.511 will let us know when its time for a joan inj Pain of ri ght knee joint 5903050805 64444 M25.561 we will see how this goes and prob see him go to dr knutson [id number] Darrell Vale [facility] Medicine [address] [facility] [address] 08/07/2022 14:41:22 08/07/2022 15:55:51 Impaired fasting glycemia 101766616 R73.01 a1c is doing great down to 6.3 from 6.4 and prior 7.7 Eczema 95582286 L30.9 stable Hypertriglyceridemia 302 091937 E78.2 stable and is quiet and we will rechk next year [id number] Darrell Vale [facility] [address] [facility] [place] [address] 08/27/2022 10:13:27 08/27/2022 11:45:14 Rupture of rotator cuff of right shoulder 0357566586 4222572 M75.101 tolerated joan inj [id number] Darrell Vale [facility] Internal [facility] [address] [facility] [place] [address] 10/29/2022 11:20:00 10/29/2022 13:35:10 Injury of tendon of the rotator cuff of shoulder 070950434 S46.001D discussed consev carewe will do the PT route and have him then get an MRI if not any better and also ortho [id number] Darrlel Vale [facility] [address] [facility] [address] [address] 03/19/2023 15:17:24 03/19/2023 16:41:11 Kidney stone 77167576 N20.0 left flank pain severe at times 10 duration without abating [id number] Darrell Vale [facility] [address] [facility] [address] [address] 06/28/2023 08:06:32 06/28/2023 13:14:30 Hypertriglyceridemia 543075180 E78.2 stable and is quiet and we will rechk next year Impaired f asting glycemia 467780536 R73.01 a1c is doing great down to 6.3 from 6.4 and prior 7.7 [id number] Darrell Vale [facility] [address] [facility] [address] [address] 06/28/2023 13:23:58 07/01/2023 08:37:19 Kidney stone 21781226 N20.0 is scheduled for eswl on Jun on the right Glenoid labrum tear 2022 24352 S43.431D did well with surgery with dr knutson [id number] Darrell Vale [facility] [address] [facility] [address] [address] 02/11/2024 14:20:42 02/11/2024 15:13:00 Hypertriglyceridemia 790079365 E78.2 stable and is quiet and we will rechk next year Impaired f asting glycemia 815814307 R73.01 a1c is doing great down to 6.3 from 6.4 and prior 7.7 Eczema 31452280 L30.9 stable Mass of lower limb 64854 7000 R22.41 [id number] Darrell Vale [facility] Medicine [address] [facility] [address] [address] 02/26/2024 11:52:59 02/26/2024 12:30:25 Impaired fasting glycemia 474796589 R73.01 a1c is doing great down to 6.3 from 6.4 and prior 7.7 [id number] Darrell Vale [facility] [address] [facility] [place] [address] 04/29/2024 11:18:39 04/29/2024 13:50:59 Hypertriglyceridemia 853520261 E78.2 LDL 57 HDL 57 trig Impaired f asting glycemia 768548449 R73.01 a1c is doing great down to 6.5 was 6.3 from 6.4 and prior 7.7 Depression screening 171 779056 Z13.31 neg [id number] Darrell Vale [facility] Medicine [address] [place] [address] 08/07/2024 10:41:27 08/07/2024 11:54:40 Hypertriglyceridemia 544342988 E78.2 LDL 57 HDL 57 trig Impaired f asting glycemia 131595879 R73.01 a1c is doing great down to 6.5 was 6.3 from 6.4 and prior 7.7 [id number] Darrell Vale [facility] Internal [address] [address] 09/23/2024 14:12:44 09/23/2024 15:11:15 Pain of bilateral hip joints 5025685654 1291803 M25.551 here for rechk and is in need of the hip ct scan [id number] Darrell Vale [facility] Internal [facility] [address] [place] [address] 11/16/2024 10:52:32 11/16/2024 11:37:38 Impaired fasting glycemia 923585149 R73.01 a1c is 6.9 and was down to 6.5 was 6.3 from 6.4 and prior 7.7will chk in january and decide [id number] Darrell Vale [facility] Internal [address] [address] 01/25/2025 11:51:14 01/25/2025 12:59:56 Type 2 diabetes mellitus 80498114 E11.9 .will cont metformin as is for the next month or so then as increase activity will devcrease to half tab and then rechk a1c Sleep apnea 55589629 G47 .30 overall seems to be doing Hypertriglyceridemia 302 964553 E78.2 LDL 57 HDL 57 trig Glenoid labrum tear 2022 38146 S43.431D did well with surgery with dr knutson [id number] Darrell Vale, [facility] [address] [facility] [address] [facility] [address] 04/05/2025 15:18:58 04/05/2025 16:44:38 Type 2 diabetes mellitus 34319769 E11.9 .will cont metformin as is for the next month or so then as increase activity will devcrease to half tab and then rechk a1c Depression screening 171 546577 Z13.31 neg Nontraumat ic partial rupture of right rotator cuff 6521307574 498675 M75.111 [id number] still in a lot of pain and on exam has pos empty can test and ext rotat resistance pos. Nontraumat ic partial rupture of left rotator cuff 9038525041 609282 M75.112 95166752 new symptoms lasting now 6 months and actually has not been straining it and despite this is still uncomforta ble and limited in use really needs an mri but will need to go to PT first [id number] Darrell Vale, [facility] [address] [facility],[place] [address] [place] [place] [address] 05/17/2025 09:22:03 05/17/2025 11:27:44 Type 2 diabetes mellitus 24795004 E11.9 needs freestyle device and wel will re subnit a1c is 6,2 last done also 7.1 this time .will cont metformin as is for the next month or so then as increase activity will devcrease to half tab and then rechk a1c Depression screening 171 497344 Z13.31 neg [id number] Darrell Vale [facility] [address] [facility],[place] [address] [place] [facility] [place] [address] 06/16/2025 11:51:22 06/16/2025 12:40:41 Depression screening 641449311 Z13.31 neg Type 2 augusto betes mellitus 86093178 E11.9 needs freestyle device and wel will re subnit a1c is 6,2 last done also 7.1 this time .will cont metformin as is for the next month or so then as increase activity will devcrease to half tab and then rechk a1c Acute urticaria 68784042 9 L50.8 [id number] Health Concerns Section Related Observation LastModified by Organization Detai ls LastModified Time None Recorded Concern Status LastModified by Organization Details LastModified Time None Recorded Advance Directives Directive None Recorded Payers Insurance Date Sequence Insurance Name Policy Number Policy Mosqueda Covered Member ID Mosqueda Member ID Guarantor Name 06/16/2025 2 [employer] () Christopher Auclair [id number] Christopher Auclair 09/11/2024 2 UNSPECIFIED REMIT PAYOR Christopher Auclair 01/25/2025 1 [employer] () Christopher Auclair [id number] Christopher Auclair 06/16/2025 1 [place] 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 113 Christopher A Auclair [id number] Christopher Auclair Notes Date Note Type Note Provider Name a nd Address Organization Details Recorded Time 4 text/html ROS as noted in the HPI here for [email or web address] has climbed to 6.9discussed crazy schedule at the basemetabolism is not good Darrell Vale DO [address] [place], [address], [facility] 11/16/2024 11:35:45 5 text/html Care Management - DiabetesReported by PatientHPIFor self care, patient reportsseeing eye doctor yearly for dilated eye exam,checking feet regularly,normal range of home blood sugars (in the low 100s), andno side effects from medications. For associated symptoms, patient reportssymptoms are usually well controlled,no fatigue,no dizziness,no excessive sweating,no headaches,no confusion,no increased thirst,no increased appetite,no increased urination,no blurred vision,no numbness of feet, andno calluses on feet.ROS as noted in the HPI here for rechkrelates is still not activie yet with the winterstill not eating great at times tolerates metformin Darrell Vale DO [address] [place], [address], [facility] 01/25/2025 12:31:19 5 text/html Care Management - DiabetesReported by PatientHPIFor self care, patient reportsseeing eye doctor yearly for dilated eye exam,checking feet regularly,normal range of home blood sugars (in the low 100s), andno side effects from medications. For associated symptoms, patient reportssymptoms are usually well controlled,no fatigue,no dizziness,no excessive sweating,no headaches,no confusion,no increased thirst,no increased appetite,no increased urination,no blurred vision,no numbness of feet, andno calluses on feet.shoulder now started to hurt and is bothering him a great deal and unfortunately is not going awayhurts daily and if he is reaching or putting right arm through a sleeve this causes probROS as noted in the HPI Darrell Vale DO [address] [place] [address], [id number], [facility] 04/05/2025 16:47:06 5 text/html Care Management - DiabetesReported by PatientIFor self care, patient reportsseeing eye doctor yearly for dilated eye exam,checking feet regularly,normal range of home blood sugars (in the low 100s), andno side effects from medications. For associated symptoms, patient reportssymptoms are usually well controlled,no fatigue,no dizziness,no excessive sweating,no headaches,no confusion,no increased thirst,no increased appetite,no increased urination,no blurred vision,no numbness of feet, andno calluses on feet.ROS as noted in the HPI here for rechk his mri of left shoulder just donehas cpap machine but is strugglng told him to look int the half maskhis hip is still bothering him does take the meloxicam but is trying not to take daily every day priorhere for rechkrelates is still not activie yet with the winterstill not eating great at times tolerates metformin Darrell Vale DO [address] [place], [id number], [facility] 05/17/2025 10:24:57 5 text/html Care Management - DiabetesReported by PatientHPIFor self care, patient reportsseeing eye doctor yearly for dilated eye exam,checking feet regularly,normal range of home blood sugars (in the low 100s), andno side effects from medications. For associated symptoms, patient reportssymptoms are usually well controlled,no fatigue,no dizziness,no excessive sweating,no headaches,no confusion,no increased thirst,no increased appetite,no increased urination,no blurred vision,no numbness of feet, andno calluses on feet.ROS as noted in the HPI Darrell Vale, DO [address] [facility], [place], [id number], [facility] 06/16/2025 12:39:02
[2025-08-20 11:58] LABS: Hemoglobin A1C 197.4797 umol/L; Total Hemoglobin (HGBA1C) 3815.4880 umol/L
== END 2025-08-20 07:52 | disposition home or self-care (01) ==
LOC: HO.WFDLDS 07:51
PROVIDERS: Visit Provider Internal Medicine
DX: R73.01 Impaired fasting glucose (principal)
CPT/HCPCS: 36415; 83036